=== PATIENT | male | born 1980 | race African-American/Black ===

== ENCOUNTER 2024-04-19 12:22 | Outpatient (REF) | payer OTHER, SELFPAY ==
--- NOTE | ~2024-04-19 | XR_ITS ---
EXAMINATION: Bilateral knee series CLINICAL INFORMATION: Pain in the left knee COMPARISON: None. TECHNIQUE: AP upright view of both knees. Additional lateral and patella view of the right knee FINDINGS: Right knee: There is soft tissue prominence along the region of the patella tendon. There is also a tiny ossification or calcification 11 mm distal to the distal pole the patella. Quadriceps unremarkable. Soft tissue prominence along the anterior aspect of the patella No joint space narrowing or arthrosis. No effusion. Limited left knee AP upright: The medial and lateral compartments are normal surrounding bone and soft tissues normal. XR/XR knee LT 1V IMPRESSION: 1. Soft tissue prominence in the region of the patella tendon. This is nonspecific but could reflect patellar tendon tear with small avulsion fracture. No definite patellar retraction Electronically signed by: Matt Good MD 04/24/2024 08:47 AM EDT
--- NOTE | ~2024-04-19 | XR_ITS ---
EXAMINATION: Bilateral knee series CLINICAL INFORMATION: Pain in the left knee COMPARISON: None. TECHNIQUE: AP upright view of both knees. Additional lateral and patella view of the right knee FINDINGS: Right knee: There is soft tissue prominence along the region of the patella tendon. There is also a tiny ossification or calcification 11 mm distal to the distal pole the patella. Quadriceps unremarkable. Soft tissue prominence along the anterior aspect of the patella No joint space narrowing or arthrosis. No effusion. Limited left knee AP upright: The medial and lateral compartments are normal surrounding bone and soft tissues normal. XR/XR knee RT 3V IMPRESSION: 1. Soft tissue prominence in the region of the patella tendon. This is nonspecific but could reflect patellar tendon tear with small avulsion fracture. No definite patellar retraction Electronically signed by: Matt Good MD 04/24/2024 08:47 AM EDT
== END 2024-04-19 12:23 | disposition home or self-care (01) ==
LOC: HO.HOSX 12:22
PROVIDERS: Visit Provider Physician Assistant
DX: S86.811A Strain of other muscle(s) and tendon(s) at lower leg level, right leg, initial encounter (principal); M17.11 Unilateral primary osteoarthritis, right knee; M25.562 Pain in left knee
CPT/HCPCS: 73560; 73562; 99202

== ENCOUNTER 2024-04-19 12:51 | Outpatient (AMB) | payer OTHER, SELFPAY ==
--- NOTE | 2024-04-19 13:24 | MHC.OFFVIS ---
Vital Signs 04/19/24 13:26 Height 5 ft 11 in Weight 172 lb BMI 24.0 Intake Visit Reasons: FC-Right Knee avulsion-DOI 03/31/24 Intake Note: Jakub is a 44 year old male who presents to the office today for a Right Knee avulsion, DOI 03/31/24. Patient reports he was seen at [facility] and was given a knee immobilizer and crutches to stay off of his leg. 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 His pain comes with bending of knee and feels a tight. He has had improvement in swelling. He uses icing and ibuprofen to help with his swelling. Occasional numbness and tingling. No previous tx. Hx of cortisone injection in bilateral knee years ago. Allergies No Known Allergies Allergy (Verified 04/19/24 13:33) Medication List - Last Reconciled 04/19/24 by Mala Lynn PA-C carbamazepine 200 mg PO BID HPI HPI FC-Right Knee avulsion-DOI 03/31/24: Details: 44-year-old male who presents to the office today for an evaluation of right knee injury, 03/31/24. 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 He currently states he has improvement in swelling however he reports tightness and pain in his knee that is aggravated with bending. He also experiences occasional numbness and tingling in her knee. He finds swelling relief with icing and ibuprofen. He has not had any treatment in the past. He had cortisone injection in bilateral knees years ago. [facility] Surgical History (Updated 04/19/24 @ 13:28 by KIANNA Coronado) Hx of Achilles tendon repair Hx of foot surgery Social History (Updated 04/19/24 @ 13:29 by KIANNA Coronado) Patient Tobacco Use Status: Never used Tobacco Substance Use Type: Marijuana Review of Systems Const All systems reviewed & are unremarkable except as noted in HPI and below Physical Exam Vital Signs: BMI result Body Mass Index 24.0 Const General: cooperative, healthy appearing, comfortable, no acute distress, well developed and alert Orientation/consciousness: patient oriented x3 HEENT Head: Yes normal to inspection, Yes normocephalic and Yes atraumatic Eyes General: appearance normal, both eyes and all related structures Resp Effort & Inspection: normal respiratory effort and able to speak in complete sentences Cardio Rate: regular rate Peripheral pulses: Peripheral pulses 2+ throughout GI Palpation (GI): Soft to palpation Skin Lesions: no lesions Rashes: no rashes Neuro General: patient oriented x3 Extrem Other: Right knee: Skin intact, He does have a moderate joint effusion with defect along the inferior pole of the patella with inability to SLR. Results Reviewed Results Reviewed: Xrays were obtained in the office today and personally reviewed by me of the right knee show patella jay resembling patellar tendon rupture Assessment & Plan Assessment & Plan (1) Rupture of right patellar tendon: Code(s): S86.811A - Strain of other muscle(s) and tendon(s) at lower leg level, right leg, initial encounter Category: Medical Plan I explained the extent of the injury and options to the patient which includes repair of the patellar tendon. I did explain to him that this takes anywhere from 6-12 weeks to fully recover from as there needs to be a period of immobilization and then potential physical therapy. It is ideal to perform surgery within the next few days as the injury is already a week out and we want to prevent further retraction or scarring which could jeopardize the success of the surgery. I discussed with him the risks, benefits and alternatives to the procedure.? Risks including, but not limited to infection, re-rupture of the tendon, stiffness, chronic pain.? He does understand all this and would like to proceed forward. I did also discuss the subacute nature of this injury and that repair outside the 1st 7-10 days can be difficult and may compromise results. He understands. Patient was fit for a knee brace in the office today. Orders: Orders XR knee RT 3V 04/19/24 M17.11 - Unilateral primary osteoarthritis, right knee XR knee LT 1V 04/19/24 M25.562 - Pain in left knee Medications: New acetaminophen 650 mg (2 x 325 mg) PO Q4-6H PRN 240 tabs 0RF fever or pain 30 days oxycodone Partial Fill upon patient request. 5 mg PO Q4H PRN 42 tabs 0RF pain 7 days Patient Instructions: Scribed for Mala Lynn PA-C, by Lonnie Estrada center medical and lab director, on 04/19/2024 at 1:15 PM EST.? I, Mala Lynn PA-C, have personally reviewed and agree with the information entered by the scribe. Coding Level of Care Code New Pt Level 4 (99992) Complex EM visit Add On G2211 Diagnoses Rupture of right patellar tendon S86.811A
[2024-04-19 13:26] VITALS: BMI 24.0
== END 2024-04-19 14:32 | disposition home or self-care (01) ==
PROVIDERS: Visit Provider Physician Assistant
DX: S86.811A Strain of other muscle(s) and tendon(s) at lower leg level, right leg, initial encounter (principal)
CPT/HCPCS: 99204; G2211

== ENCOUNTER 2024-04-20 09:48 | Day surgery (SDC) | payer OTHER, SELFPAY ==
[2024-04-20 10:06] VITALS: BMI 24.0
[2024-04-20 10:24] VITALS: BP 126/72; PULSE 64; RESP 18; TEMP 36.7; O2SAT 100
[2024-04-20] MEDS: Lactated Ringers 1,000 ML 100 ML IVCONT (10:27)
--- NOTE | 2024-04-20 10:34 | HO.ANESPROP2 ---
HPI - Anesthesia Eval Consult details Narrative: right patellar tendon repair PMFSH Active Problems Active Problems: All Active Problems Rupture of right patellar tendon (Acute) Family History Family history of problems with anesthesia: No Surgical History Surgical History Hx of Achilles tendon repair Hx of foot surgery History of Problems with Anesthesia: No Social History Social History Patient Tobacco Use Status: Never used Tobacco Second Hand Smoke Exposure: No Use of substances other than those prescribed or required for medical reasons: Yes Substance Use Type: Marijuana Are you DNR?: No Advance Directives: No Advance Directives Information Provided: Yes Advance Directives on File: No Meds Allergies Allergy/AdvReac Type Severity Reaction Status Date / Time No Known Allergies Allergy Verified 04/19/24 13:33 Active Medications: Current Medications Lactated Ringer's (Lr) 1,000 mls @ 100 mls/hr IVCONT .Q10H DANAE Last Admin: 04/20/24 10:27 Dose: 100 mls/hr Home Medications ?Medication ?Instructions ?Recorded ?Confirmed ?Last Taken ?Type carbamazepine 200 mg tablet 200 mg PO BID 04/19/24 04/20/24 04/20/24 History Exam Height,Weight and Vital Signs: Height 5 ft 11 in Weight 78.018 kg Last Vital Signs Temp 98.1 F 04/20/24 10:24 Pulse 64 04/20/24 10:24 Resp 18 04/20/24 10:24 BP 126/72 04/20/24 10:24 Pulse Ox 100 04/20/24 10:24 O2 Del Method Room Air 04/20/24 10:24 Airway Mallampati Class: II TM Dist: >3cm Neck ROM: Full Heart: rrr Assessment and Plan Assessment Anesthesia Assessment: Anesthesia Plan Discussed and Smoking Cess. Discussed (augie) Final Anesthetic Review Family History of Problems with Anesthesia: No History of Problems with Anesthesia: No NPO: Yes ASA Class: II Final Preanesthetic Review: No Changes in Pt Med Stat, Meds/Allgs Chart Reviewed, Consent Obtained/Reviewed and Anes Risks/Benef Reviewed Patient Risk: Intermediate Procedure Risk: Low Anesthetic Plan Anesthetic Plan: GA and Regional Block Disposition: Standard PACU
--- NOTE | 2024-04-20 11:12 | MHC.SHP ---
Pre-Procedural Eval Section A - 24 Hr Update-Section A only Date of Service: 04/20/24 The patient is an INPATIENT: No Changes since office visit: No Cold of Flu in the past 2 weeks, No New Medical Problems, No Changes in Medication and No Patient answered all questions The patient has been examined within 24 hours of the surgical procedure. The History & Physical has been completed within 30 days and I have reviewed it.: Yes Section B - Complete if H&P > 30 days Chief Complaint: Strain of other muscle(s) and tendon(s) at lower Allergies: Allergies Allergy/AdvReac Type Severity Reaction Status Date / Time No Known Allergies Allergy Verified 04/19/24 13:33 Plan I have reviewed the history and physical and performed a pertinent physical examination on my patient. No changes have occurred unless specified. Time Spent With Patient Time: Total time managing care of this patient today ____ minutes.
--- NOTE | 2024-04-20 13:59 | PM.OP ---
Brief Operative Note Date of Service: 04/20/24 Pre-op diagnosis: Right Patellar Tendon Rupture Post-op diagnosis: same Procedure: Right Patellar Tendon repair Implants: Syed and Nephew double loaded Helacoil and large Regeneted Collagen bioinductive implant Surgeon: Chris Vila MD Anesthesia: GETA and regional Was an Graphic Pre Press Trades Worker used for this Procedure?: Yes Graphic Pre Press Trades Worker: Mala Lynn Estimated blood loss (mL): 20 Tourniquet time (min): 40 IV fluids (mL): 1,000 Pathology: none sent Condition: stable Disposition: PACU
[2024-04-20 14:10] VITALS: BP 136/80; PULSE 73; RESP 18; TEMP 36.5; O2SAT 100
[2024-04-20 14:15] VITALS: BP 124/72; PULSE 59; RESP 18; O2SAT 100
[2024-04-20 14:20] VITALS: BP 133/83; PULSE 68; RESP 18; O2SAT 100
[2024-04-20 14:30] VITALS: BP 127/84; PULSE 62; RESP 16; O2SAT 100
[2024-04-20 14:45] VITALS: BP 132/75; PULSE 66; RESP 18; O2SAT 100
--- NOTE | 2024-04-30 16:04 | P.OP_ITS ---
Operative Note Operative Note Date of Service: 04/20/24 Narrative: Date of Service: 04/20/24 Pre-op diagnosis: Right Patellar Tendon Rupture Post-op diagnosis: same Procedure: Right Patellar Tendon repair Implants: Syed and Nephew double loaded Helacoil and large Regeneted Collagen b ioinductive implant Surgeon: Chris Vial MD Anesthesia: GETA and regional Was an Material Expeditor used for this Procedure?: Yes Material Expeditor: Mala Lynn Estimated blood loss (mL): 20 Tourniquet time (min): 40 IV fluids (mL): 1,000 Pathology: none sent Condition: stable Disposition: PACU Patient was brought to the operating room and placed supine on the surgical table. He was prepped and draped in standard sterile fashion and a time out was called to identify proper site, proper procedure and IV antibiotics per weight were administered. I began by making an incision between the middle of the pat jodi and the tibial tubercle. Dissection was taken down to the patellar tendon and the patellar retinaculum. There was fibrous early scar tissue and this was dissected down bluntly. Immediately evident was a large full-thickness tear of the patellar tendon. The tear extended from the medial aspect of the retinaculum and extended through the patellar tendon to the lateral retinaculum. I cleared the debris from the injury site and the old hematoma and examined the injury. This was a full-thickness tear of the patellar tendon that was partially avulsed off bone and partially torn at the proximal aspect of the tendon. I debrided any nonviable tissue and then I placed to double loaded Syed and Nephew 4.75 suture anchors into the patella. Care was taken to avoid penetrating the articular surface. I then used a free needle to stitch the patellar tendon using a locking Krackow stitch distally and then back up proximally. These were then tied to 1 another in a hyperextension after I had debrided down the distal nonarticular portion of the patella to allow for of bleeding bed to reattached the tendon to. Once this was done I oversewed some of the loose fibers of the tendon as it was a portion of tendon on tendon injury and I was not entirely an avulsion injury. This was oversewn with a 2-0 FiberWire. I then took the knee through range of motion I was able to range it from 0-125 degrees without difficulty. I then used 2 FiberWire to repair the retinaculum laterally and medial. Prior to this I irrigated copiously. Because the injury was so extensive and it was several weeks out I elected to place a Regeneten bio inductive implant over the central zone of tendon injury. This was kept in place with a Vicryl suture. Once this was done I closed the skin with absorbable suture and remedios. Patient was placed into a sterile dressing and a hinged knee brace locked in extension. He was extubated and brought to recovery room in stable condition. There were no known complications.
== END 2024-04-20 15:08 | disposition home or self-care (01) ==
PROVIDERS: PCP Internal Medicine; Visit Provider Orthopaedic Surgery
PROC: (CPT 27380; principal; 2024-04-20 13:20)
DX: S86.811A Strain of other muscle(s) and tendon(s) at lower leg level, right leg, initial encounter (principal); M17.11 Unilateral primary osteoarthritis, right knee; M25.562 Pain in left knee; W50.1XXA Accidental kick by another person, initial encounter; Y93.67 Activity, basketball; Y92.39 Other specified sports and athletic area as the place of occurrence of the external cause; Y99.8 Other external cause status; Z98.890 Other specified postprocedural states
CPT/HCPCS: 27380; C1713; C1763; J0665; J0690; J1100; J2003; J2250; J2704; J2795; J3010

== ENCOUNTER → 2024-04-20 09:48 | Outpatient (BNV) | payer OTHER, SELFPAY | PROVIDERS: PCP Internal Medicine; Visit Provider Orthopaedic Surgery | DX: S86.811A Strain of other muscle(s) and tendon(s) at lower leg level, right leg, initial encounter (principal) | CPT/HCPCS: 27380 ==

== ENCOUNTER 2024-04-29 14:13 | Outpatient (AMB) | payer OTHER, SELFPAY ==
--- NOTE | 2024-04-29 14:47 | MHC.OFFVIS ---
Intake Visit Reasons: PO RT patellar tendon repair 04/20/24 NE Allergies No Known Allergies Allergy (Verified 04/19/24 13:33) HPI HPI PO RT patellar tendon repair 04/20/24 NE: Details: 44-year-old male who returns to the office today for post-op right patellar tendon repair, 04/20/[address] Vila. He states he has improvement in his pain and swelling and is doing well overall. He takes oxycodone for his pain with benefits. He has no other concerns today. PFSH Surgical History Hx of Achilles tendon repair Hx of foot surgery Social History Patient Tobacco Use Status: Never used Tobacco Second Hand Smoke Exposure: No Substance Use Type: Marijuana Review of Systems Const All systems reviewed & are unremarkable except as noted in HPI and below Physical Exam Extrem Other: Right knee: Incision clean, dry and intact. No erythema, mild swelling. Sensation intact. Assessment & Plan Assessment & Plan (1) Rupture of right patellar tendon: Code(s): S86.811A - Strain of other muscle(s) and tendon(s) at lower leg level, right leg, initial encounter Category: Medical Plan Jason will remain intact for additional week. He will use the brace locked in extension. No bending. I encouraged him to work on extension by putting rolled up towel underneath her heel. We discussed pain management options. He will continue taking oxycodone every 4-6 hours along with Tylenol and I will prescribe him Celebrex as well. He will return in 1 week for staple removal and initiate physical therapy, sooner if needed. Medications: New celecoxib (Celebrex) 200 mg PO BID 60 caps 3RF 30 days Refilled oxycodone Partial Fill upon patient request. 5 mg PO Q4H PRN 42 tabs 0RF pain 7 days Patient Instructions: Scribed for Mala Lynn PA-C, by Lonnie Estrada bio medical technician, on 04/29/2024 at 2:30 PM EST.? I, Mala Lynn PA-C, have personally reviewed and agree with the information entered by the scribe. Coding Level of Care Code Global (27138) Diagnoses Rupture of right patellar tendon S86.811A
== END 2024-04-29 14:32 | disposition home or self-care (01) ==
LOC: HO.HOS 14:13
PROVIDERS: Visit Provider Physician Assistant
DX: S86.811A Strain of other muscle(s) and tendon(s) at lower leg level, right leg, initial encounter (principal)
CPT/HCPCS: 99024

== ENCOUNTER → 2024-04-29 14:13 | Outpatient (BNVA) | payer OTHER, SELFPAY | PROVIDERS: Visit Provider Physician Assistant | DX: S86.811D Strain of other muscle(s) and tendon(s) at lower leg level, right leg, subsequent encounter (principal) | CPT/HCPCS: 99212 ==

== ENCOUNTER 2024-05-05 12:50 | Outpatient (AMB) | payer OTHER, SELFPAY ==
--- NOTE | 2024-05-05 13:06 | MHC.OFFVIS ---
Intake Visit Reasons: PO RT patellar tendon repair 04/20/24 NE Intake Note: Jakub a 44 year old male who presents today for a post operative visit s/p right patellar tendon repair, DOS 04/20/24. Patient reports intermittent throbbing pain. His current pain level is a 4 out of 10. He discontinues celebrex and oxycodone as these medications was causing fevers. Allergies No Known Allergies Allergy (Verified 05/05/24 13:24) Medication List - Last Reconciled 05/05/24 by Mala Lynn PA-C carbamazepine 200 mg PO BID HPI HPI PO RT patellar tendon repair 04/20/24 NE: Details: 44-year-old male who returns to the office today for post-op right patellar tendon repair, 04/20/[address] Vila. He continues to have intermittent throbbing pain in his knee and rates the pain as 4 on the scale of 0-10. He has discontinued taking Celebrex and oxycodone as these medications were causing him fever. He is doing well otherwise and has no concerns today. [facility] Surgical History Hx of Achilles tendon repair Hx of foot surgery Social History Patient Tobacco Use Status: Never used Tobacco Second Hand Smoke Exposure: No Substance Use Type: Marijuana Review of Systems Const All systems reviewed & are unremarkable except as noted in HPI and below Physical Exam Extrem Other: Right knee: Incision clean, dry and intact. No redness or drainage. Mild joint effusion. He has full extension. Full sensation throughout. Pulses are present. Assessment & Plan Assessment & Plan (1) Rupture of right patellar tendon: Code(s): S86.811A - Strain of other muscle(s) and tendon(s) at lower leg level, right leg, initial encounter Category: Medical Plan [place] removed today, steri strips applied. He will begin a course of physical therapy. He should wear the brace at all times with ambulation and sleeping. He can weight bear as tolerated with the crutches with the brace locked in extension, ROM to 0-10 degrees. He should increase 10 degrees every week with physical therapy. He will focus on quad exercises and he will see back in 4 weeks sooner if needed. Orders: Orders PT Evaluation and Treatment Today S86.811A - Strain of other muscle(s) and tendon(s) at lower leg level, right leg, initial encounter Patient Instructions: Scribed for Mala Lynn PA-C, by Lonnie Estrada medical education manager, on 05/05/2024 at 1:15 PM EST.? I, Mala Lynn PA-C, have personally reviewed and agree with the information entered by the scribe. Coding Level of Care Code Global (50007) Diagnoses Rupture of right patellar tendon S86.811A
== END 2024-05-05 14:07 | disposition home or self-care (01) ==
LOC: HO.HOS 12:51
PROVIDERS: Visit Provider Physician Assistant
DX: S86.811A Strain of other muscle(s) and tendon(s) at lower leg level, right leg, initial encounter (principal)
CPT/HCPCS: 99024

== ENCOUNTER → 2024-05-05 12:50 | Outpatient (BNVA) | payer OTHER, SELFPAY | PROVIDERS: Visit Provider Physician Assistant | DX: S86.811D Strain of other muscle(s) and tendon(s) at lower leg level, right leg, subsequent encounter (principal); X58.XXXD Exposure to other specified factors, subsequent encounter; Z98.890 Other specified postprocedural states | CPT/HCPCS: 99212 ==

== ENCOUNTER 2024-06-04 09:13 | Outpatient (AMB) | payer OTHER, SELFPAY ==
--- NOTE | 2024-06-04 09:22 | MHC.OFFVIS ---
Vital Signs 06/04/24 09:33 Height 5 ft 11 in Weight 163 lb 2 oz BMI 22.7 Intake Visit Reasons: PO RT patellar tendon repair 04/20/24 NE Intake Note: Jakub a 44 year old male who presents today for a post operative visit s/p right patellar tendon repair, DOS 04/20/24. Patient states he is doing well and has been attending P.T 2x a week with improvement in ROM. He is experiencing a radiating shocking sensation in his medial aspect of knee and numbness on his lateral side especially at night time. Allergies No Known Allergies Allergy (Verified 06/04/24 09:24) Medication List - Last Reconciled 06/04/24 by Mala Lynn PA-C carbamazepine 200 mg PO BID HPI HPI PO RT patellar tendon repair 04/20/24 NE: Details: 44-year-old male who returns to the office today for post-op right patellar tendon repair, 04/20/[address] Vila. He states he has improvement however he does experience a radiating shocking sensation at the medial aspect of his knee as well as numbness at the lateral aspect especially at night time. He also experiences weakness in his knee. He has been attending physical therapy with benefits and wearing his brace for ambulation. He has significant quad weakness and stiffness with ROM. [facility] Surgical History Hx of Achilles tendon repair Hx of foot surgery Social History (Updated 06/04/24 @ 09:32 by MAX Cardozo) Patient Tobacco Use Status: Never used Tobacco Second Hand Smoke Exposure: No Substance Use Type: Marijuana Current occupational status: unemployed Review of Systems Const All systems reviewed & are unremarkable except as noted in HPI and below Physical Exam Vital Signs: BMI result Body Mass Index 22.7 Extrem Other: Right knee:Incision well healed. No effusion. He has almost full extension. He has poor quad activation. No quad defect. We are able to flex the right hip to 90 with significant guarding and use of accessory muscles. He has approx 40-45deg knee flexion. NVI. Assessment & Plan Assessment & Plan (1) Rupture of right patellar tendon: Code(s): S86.811A - Strain of other muscle(s) and tendon(s) at lower leg level, right leg, initial encounter Category: Medical Qualifiers: Encounter type: subsequent encounter Qualified Code(s): S86.811D - Strain of other muscle(s) and tendon(s) at lower leg level, right leg, subsequent encounter Plan Dr. Vila was available to see the patient with me today. We worked extensively on trying to activate his quad tendon and also push the motion of his knee. We did demonstrate some exercises in the office today and encouraged he works on this at home along with the formal therapy exercises. He will continue with the brace locked in extension while ambulating and remove it at all other times. I would like to see him back in [address] Vila, sooner if needed. Patient Instructions: Scribed for Mala Lynn PA-C, by Lonnie Estrada medical center director, on 06/04/2024 at 9:15 AM EST.? I, Mala Lynn PA-C, have personally reviewed and agree with the information entered by the scribe. Coding Level of Care Code Global (58169) Diagnoses Rupture of right patellar tendon, subsequent encounter S86.811D Encounter type: subsequent encounter
[2024-06-04 09:33] VITALS: BMI 22.7
--- OUTSIDE RECORDS SUMMARY | 2024-06-09 06:51 | XMS_ITS | Data Portability ---
Author Organization [facility], Main Office Address [address] [facility] [address] [place] [address] Care Team Providers Care Leather Splitter Name Role Phone HUMPHREY EASTON Primary Care Provider SAMIA JOSHI Referring Provider JESSA CLARKE Referring Provider CASSANDRA SCHNEIDER Referring Provider Assessment Encounter Date Assessment Date Assessment LastModified by Organization Details LastModified Time 06/13/2022 06/13/2022 This service was provided using telemedicine. Patient consented to video & audio visit Patient was located in the [facility]. Provider was located in the office. No other persons participated in the telemedicine visit except for the patient unless otherwise indicated here. {{}} Total time of visit was 20 minutes. [email or web address] Not available 06/19/2022 09:28:23 05/06/2024 05/06/2024 This service was provided using telemedicine. Patient consented to video & audio visit Patient was located in the [facility]. Provider was located in the office. No other persons participated in the telemedicine visit except for the patient unless otherwise indicated here. {{}} Total time of visit was 17 minutes. [email or web address] Not available 05/08/2024 09:02:38 Plan of Treatment Reminders Order Date Submit Date Provider Last Modified By Organization Details Last Modified Time Details Appointments None recorded . Lab carbamaz epine, serum or plasma 2022 023 MICAELA [facility], [address] [facility], [facility], [place], [address], 3 16:20:20 lipid panel, serum 2022 023 MICAELA [facility], [address], [address], [place], [address], 3 16:20:22 CMP, serum or plasma 2022 023 MICAELA [facility], [address], [address], [place], [address], 3 16:20:21 CMP, serum or plasma 2023 024 MICAELA [facility], [address], [facility] [address], [place], [address], 4 06:08:08 CBC w/ auto diff 2023 024 MICAELA [facility], [address], [facility] [address], [place], [address], 4 06:08:06 lipid panel, serum 2023 024 MICAELA [facility], [address], [facility] [address], [place], [address], 4 06:08:09 urinalys is, complete 2023 024 MICAELA [facility], [address], [facility] [address], [place], [address], 4 06:08:08 Referral None recorded . Procedures screenin g test of visual acuity, quantita tive, bilatera l (PROC) 2023 024 [email or web address] In-Office Order, Internal Use Only DO Not Attach Compendium DO Not Attach Compendium, Do Not Delete/merge, [id number] 12:49:02 Surgeries None recorded . Imaging exercise stress test - Intermit tent chest wall pain and an episode of syncope. R/o ischemia . [address] [facility], [address] [place] [address] Drive, [address], [place], [address], 3 09:27:17 electroc ardiogra m 2023 024 [email or web address] In-Office Order, Internal Use Only DO Not Attach Compendium DO Not Attach Compendium, Do Not Delete/merge, [id number] 12:31:01 audiogra m 2023 024 [email or web address] In-Office Order, Internal Use Only DO Not Attach Compendium DO Not Attach Compendium, Do Not Delete/merge, [id number] 12:48:56 Medication Orders None recorded . Patient TargetsNo targets recorded. Patient Instructions Encounter Date Encounter Id Patient Instructions Last Modified By Organization Details Last Modified Time 11/21/2021 [id number] epilepsy: care instructions [email or web address] Not available 11/21/2021 17:19:24 06/13/2022 [id number] fainting: care instructions [email or web address] Not available 06/19/2022 17:46:04 lightheadedness or faintness: care instructions [email or web address] Not available 06/19/2022 17:46:04 11/26/2022 [id number] epilepsy: care instructions [email or web address] Not available 11/26/2022 13:08:52 03/02/2024 [id number] epilepsy: care instructions [email or web address] Not available 03/02/2024 13:45:21 vision screen* [email or web address] Not available 0 03/09/2024 10:12:58 hearing screening* Not availab le 03/09/2024 10:12:58 Reason for Referral None Reported. Results Created Date Observation Date Name Description Value Unit Range Abnormal Flag Note LastModifiedBy Organization Detail LastModifiedTime 11/08/19 22 11/07/2021 CARBA MAZEP INE carbamazepin e 5.8 mg/L (4-10) AMITR IPTYL INE, NORTR IPTYL INE, PHENO THIAZ MANDIE, CARBA MAZEP INE 10,11 EPOXI DE, IMIPR AMINE , DIAZE MADAI, PROBE NECID AND METHS UXIMI DE MAY CAUSE FALSE LY DECRE ASED RESUL TS OXCAR BAZEP INE AND METAB OLITE MAY CAUSE FALSE LY DECRE ASED RESUL TS Not Available [facility] [address] [place], [address], 11/07/2021 16:18:48 11/08/19 22 11/07/2021 COMPR EHENS BRENDA METAB OLIC PANL glucose 74 mg/dL (70-99 ) Not Available [facility] [address], [address], 11/07/2021 16:18:49 11/08/19 22 11/07/2021 COMPR EHENS BRENDA METAB OLIC PANL BUN 21 mg/dL (6-20) high Not Available [facility] [address] [place], [address], 11/07/2021 16:18:49 11/08/19 22 11/07/2021 COMPR EHENS BRENDA METAB OLIC PANL creatinine 1.4 mg/dL (0.7-1 .2) high Not Available [facility] [address] [place], [address], 11/07/2021 16:18:49 11/08/19 22 11/07/2021 COMPR EHENS BRENDA METAB OLIC PANL sodium 138 mmol/ L (133-1 45) Not Available [facility] [address] [place], [address], 11/07/2021 16:18:49 11/08/19 22 11/07/2021 COMPR EHENS BRENDA METAB OLIC PANL potassium 4.7 mmol/ L (3.6-5 .2) Not Available [facility] [address] [place], [address], 11/07/2021 16:18:49 11/08/19 22 11/07/2021 COMPR EHENS BRENDA METAB OLIC PANL chloride 102 mmol/ L (98-10 7) Not Available [facility] [address] [place], [address], 11/07/2021 16:18:49 11/08/19 22 11/07/2021 COMPR EHENS BRENDA METAB OLIC PANL bicarbonate 27 mmol/ L (22-29 ) Not Available [facility] [address] [place], [address], 11/07/2021 16:18:49 11/08/19 22 11/07/2021 COMPR EHENS BRENDA METAB OLIC PANL anion gap 9 (4-17) Not Available [facility] [address] [place], [address], 11/07/2021 16:18:49 11/08/19 22 11/07/2021 COMPR EHENS BRENDA METAB OLIC PANL albumin 4.5 gm/dL (3.4-4 .8) Not Available [facility] [address] [place], [address], 11/07/2021 16:18:49 11/08/19 22 11/07/2021 COMPR EHENS BRENDA METAB OLIC PANL calcium 9.5 mg/dL (8.6-1 0.5) Not Available [facility] [address] [place], [address], 11/07/2021 16:18:49 11/08/19 22 11/07/2021 COMPR EHENS BRENDA METAB OLIC PANL bilirubin,to riri 0.3 mg/dL (0-1.2 ) Not Available [facility] [address] [place], [address], 11/07/2021 16:18:49 11/08/19 22 11/07/2021 COMPR EHENS BRENDA METAB OLIC PANL total protein 6.9 gm/dL (6.2-8 .2) Not Available [facility] [address] [place], [address], 11/07/2021 16:18:49 11/08/19 22 11/07/2021 COMPR EHENS BRENDA METAB OLIC PANL Ag ratio 1.9 Not Available [facility] [address] [place], [address], 11/07/2021 16:18:49 11/08/19 22 11/07/2021 COMPR EHENS BRENDA METAB OLIC PANL AST 22 U/L (0-40) Not Available [facility] [address] [place], [address], 11/07/2021 16:18:49 11/08/19 22 11/07/2021 COMPR EHENS BRENDA METAB OLIC PANL alk phos 68 U/L (40-12 9) Not Available [facility] [address] [place], [address], 11/07/2021 16:18:49 11/08/19 22 11/07/2021 COMPR EHENS BRENDA METAB OLIC PANL ALT 22 U/L (0-41) Not Available [facility] [address] [place], [address], 11/07/2021 16:18:49 11/08/19 22 11/07/2021 COMPR EHENS BRENDA METAB OLIC PANL estimated GFR creatinine 66 mL/mi n/1.7 3_M2 Creat inine based estim ated glome rular filtr ation (eGFR ) in adult s is calcu lated using the Natio nal Kidne y Found ation recom radha d 2020 CKD-E PI equat ion. Estim ates GFR from serum creat inine , age and sex. Not Available [facility] [address] [place], [address], 11/07/2021 16:18:49 11/08/19 22 11/07/2021 COMPL ETE BLOOD COUNT WBC 6.0 K/mm3 (4.0-1 1.0) Not Available [facility] [address] [place], [address], 11/07/2021 16:21:49 11/08/19 22 11/07/2021 COMPL ETE BLOOD COUNT RBC 4.56 M/mm3 (4.70- 6.10) low Not Available [facility] [address] [place], [address], 11/07/2021 16:21:49 11/08/19 22 11/07/2021 COMPL ETE BLOOD COUNT HGB 13.7 gm/dL (13.7- 17.1) Not Available [facility] [address] [place], [address], 11/07/2021 16:21:49 11/08/19 22 11/07/2021 COMPL ETE BLOOD COUNT HCT 43.2 % (40.5- 50.0) Not Available [facility] [address] [place], [address], 11/07/2021 16:21:49 11/08/19 22 11/07/2021 COMPL ETE BLOOD COUNT MCV 94.7 fL (80.0- 94.0) high Not Available [facility] [address], [address], 11/07/2021 16:21:49 11/08/19 22 11/07/2021 COMPL ETE BLOOD COUNT MCH 30.0 pg (27.0- 34.0) Not Available [facility] [address], [address], 11/07/2021 16:21:49 11/08/19 22 11/07/2021 COMPL ETE BLOOD COUNT MCHC 31.7 g/dL (33.0- 37.0) low Not Available [facility] [address], [address], 11/07/2021 16:21:49 11/08/19 22 11/07/2021 COMPL ETE BLOOD COUNT plt 253 K/mm3 (150-4 60) Not Available [facility] [address] [place], [address], 11/07/2021 16:21:49 11/08/19 22 11/07/2021 COMPL ETE BLOOD COUNT RDW-SD 42.5 fL (<47.0 ) Not Available [facility] [address] [place], [address], 11/07/2021 16:21:49 11/08/19 22 11/07/2021 COMPL ETE BLOOD COUNT MPV 9.7 fL (9.4-1 2.4) Not Available [facility] [address] [place], [address], 11/07/2021 16:21:49 11/08/19 22 11/07/2021 COMPL ETE BLOOD COUNT automated NRBC 0.0 #/100 _WBC' s Not Available [facility] [address] [place], [address], 11/07/2021 16:21:49 11/08/19 22 11/07/2021 COMPL ETE BLOOD COUNT abs. NRBC 0.0 K/mm3 Not Available [facility] [address] [place], [address], 11/07/2021 16:21:49 12/21/19 23 12/20/2022 CARBA MAZEP INE carbamazepin e 5.0 mg/L (4-10) AMITR IPTYL INE, NORTR IPTYL INE, PHENO THIAZ MANDIE, CARBA MAZEP INE 10,11 EPOXI DE, IMIPR AMINE , DIAZE MADAI, PROBE NECID AND METHS UXIMI DE MAY CAUSE FALSE LY DECRE ASED RESUL TS OXCAR BAZEP INE AND METAB OLITE MAY CAUSE FALSE LY DECRE ASED RESUL TS Not Available [facility] [address] [place], [address], 12/20/2022 16:20:20 12/21/19 23 12/20/2022 COMPR EHENS BRENDA METAB OLIC PANL glucose 96 mg/dL (70-99 ) Not Available [facility] [address] [place], [address], 12/20/2022 16:20:21 12/21/19 23 12/20/2022 COMPR EHENS BRENDA METAB OLIC PANL BUN 15 mg/dL (6-20) Not Available [facility] [address] [place], [address], 12/20/2022 16:20:21 12/21/19 23 12/20/2022 COMPR EHENS BRENDA METAB OLIC PANL creatinine 1.4 mg/dL (0.7-1 .2) high Not Available [facility] [address] [place], [address], 12/20/2022 16:20:21 12/21/19 23 12/20/2022 COMPR EHENS BRENDA METAB OLIC PANL sodium 138 mmol/ L (133-1 45) Not Available [facility] [address], [address], 12/20/2022 16:20:21 12/21/19 23 12/20/2022 COMPR EHENS BRENDA METAB OLIC PANL potassium 4.2 mmol/ L (3.6-5 .2) Not Available [facility] [address] [place], [address], 12/20/2022 16:20:21 12/21/19 23 12/20/2022 COMPR EHENS BRENDA METAB OLIC PANL chloride 101 mmol/ L (98-10 7) Not Available [facility] [address], [address], 12/20/2022 16:20:21 12/21/19 23 12/20/2022 COMPR EHENS BRENDA METAB OLIC PANL bicarbonate 27 mmol/ L (22-29 ) Not Available [facility] [address], [address], 12/20/2022 16:20:21 12/21/19 23 12/20/2022 COMPR EHENS BRENDA METAB OLIC PANL anion gap 10 (4-17) Not Available [facility] [address], [address], 12/20/2022 16:20:21 12/21/19 23 12/20/2022 COMPR EHENS BRENDA METAB OLIC PANL albumin 4.6 gm/dL (3.4-4 .8) Not Available [facility] [address] [place], [address], 12/20/2022 16:20:21 12/21/19 23 12/20/2022 COMPR EHENS BRENDA METAB OLIC PANL calcium 9.4 mg/dL (8.6-1 0.5) Not Available [facility] [address] [place], [address], 12/20/2022 16:20:21 12/21/19 23 12/20/2022 COMPR EHENS BRENDA METAB OLIC PANL bilirubin,to riri 0.3 mg/dL (0-1.2 ) Not Available [facility] [address] [place], [address], 12/20/2022 16:20:21 12/21/19 23 12/20/2022 COMPR EHENS BRENDA METAB OLIC PANL total protein 6.9 gm/dL (6.2-8 .2) Not Available [facility] [address] [place], [address], 12/20/2022 16:20:21 12/21/19 23 12/20/2022 COMPR EHENS BRENDA METAB OLIC PANL Ag ratio 2.0 Not Available [facility] [address] [place], [address], 12/20/2022 16:20:21 12/21/19 23 12/20/2022 COMPR EHENS BRENDA METAB OLIC PANL AST 57 U/L (0-40) high Not Available [facility] [address] [place], [address], 12/20/2022 16:20:21 12/21/19 23 12/20/2022 COMPR EHENS BRENDA METAB OLIC PANL alk phos 68 U/L (40-12 9) Not Available [facility] [address] [place], [address], 12/20/2022 16:20:21 12/21/19 23 12/20/2022 COMPR EHENS BRENDA METAB OLIC PANL ALT 32 U/L (0-41) Not Available [facility] [address] [place], [address], 12/20/2022 16:20:21 12/21/19 23 12/20/2022 COMPR EHENS BRENDA METAB OLIC PANL estimated GFR creatinine 65 mL/mi n/1.7 3_M2 Creat inine based estim ated glome rular filtr ation (eGFR ) in adult s is calcu lated using the Natio nal Kidne y Found ation recom radha d 2020 CKD-E PI equat ion. Estim ates GFR from serum creat inine , age and sex. Not Available [facility] [address] [place], [address], 12/20/2022 16:20:21 12/21/19 23 12/20/2022 LIPID PANEL cholesterol, total 236 mg/dL (<200) high Not Available [facility] [address] [place], [address], 12/20/2022 16:20:22 12/21/19 23 12/20/2022 LIPID PANEL triglyceride 70 mg/dL (<150) Not Available [facility] [address] [place], [address], 12/20/2022 16:20:22 12/21/19 23 12/20/2022 LIPID PANEL HDL chol 100 mg/dL (>39) Not Available [facility] [address] [place], [address], 12/20/2022 16:20:22 12/21/19 23 12/20/2022 LIPID PANEL LDL cholesterol, calculated 122 mg/dL (0-130 ) Not Available [facility] [address] [place], [address], 12/20/2022 16:20:22 12/21/19 23 12/20/2022 LIPID PANEL non HDL cholesterol (calc) 136 mg/dL (<160) Not Available [facility] [address] [place], [address], 12/20/2022 16:20:22 03/02/20 24 03/02/2024 scree fabio test of visua l acuit y, quant itati ve, bilat eral (PROC ) L EYE UNCORRECTED 20/30 Not Available In-O ffice Order Internal Use Only DO Not Attach Compendium DO Not Attach Compendium, Do Not Delete/merge, [id number] 03/02/2024 12:00:29 03/02/20 24 03/02/2024 scree fabio test of visua l acuit y, quant itati ve, bilat eral (PROC ) R EYE UNCORRECTED 20/40 Not Available In-O ffice Order Internal Use Only DO Not Attach Compendium DO Not Attach Compendium, Do Not Delete/merge, [id number] 03/02/2024 12:00:29 03/02/20 24 03/02/2024 scree fabio test of visua l acuit y, quant itati ve, bilat eral (PROC ) KAROL UNCORRECTED 20/25 Not Available In-O ffice Order Internal Use Only DO Not Attach Compendium DO Not Attach Compendium, Do Not Delete/merge, [id number] 03/02/2024 12:00:29 03/05/20 24 03/06/2024 CBC WITH DIFFE RENTI AL/PL ATELE T WBC 6.0 x10e3 /uL 3.4-10 .8 normal Not Available [facility] ([facility]) [address] [place], [address], 03/06/2024 06:08:06 03/05/20 24 03/06/2024 CBC WITH DIFFE RENTI AL/PL ATELE T RBC 4.95 x10e6 /uL 4.14-5 .80 normal Not Available [facility] ([facility]) [address] [facility], [place], [address], 03/06/2024 06:08:06 03/05/20 24 03/06/2024 CBC WITH DIFFE RENTI AL/PL ATELE T hemoglobin 14.7 g/dL 13.0-1 7.7 normal Not Available [facility] ([facility]) [address] [place], [address], 03/06/2024 06:08:06 03/05/20 24 03/06/2024 CBC WITH DIFFE RENTI AL/PL ATELE T hematocrit 44.6 % 37.5-5 1.0 normal Not Available [facility] ([facility]) [address] [facility], [place], [address], 03/06/2024 06:08:06 03/05/20 24 03/06/2024 CBC WITH DIFFE RENTI AL/PL ATELE T MCV 90 fL 79-97 normal Not Available [facility] ([facility]) [address] [facility], [place], [address], 03/06/2024 06:08:06 03/05/20 24 03/06/2024 CBC WITH DIFFE RENTI AL/PL ATELE T MCH 29.7 pg 26.6-3 3.0 normal Not Available [facility] ([facility]) [address] [place], [address], 03/06/2024 06:08:06 03/05/20 24 03/06/2024 CBC WITH DIFFE RENTI AL/PL ATELE T MCHC 33.0 g/dL 31.5-3 5.7 normal Not Available [facility] ([facility]) [address] [place], [address], 03/06/2024 06:08:06 03/05/20 24 03/06/2024 CBC WITH DIFFE RENTI AL/PL ATELE T RDW 12.6 % 11.6-1 5.4 Not Available [facility] ([facility]) [address] [place], [address], 03/06/2024 06:08:06 03/05/20 24 03/06/2024 CBC WITH DIFFE RENTI AL/PL ATELE T platelets 266 x10e3 /uL 150-45 0 normal Not Available [facility] ([facility]) [address] [facility], [place], [address], 03/06/2024 06:08:06 03/05/20 24 03/06/2024 CBC WITH DIFFE RENTI AL/PL ATELE T neutrophils 42 % not estab. normal Not Available [facility] ([facility]) [address] [facility], [place], [address], 03/06/2024 06:08:06 03/05/20 24 03/06/2024 CBC WITH DIFFE RENTI AL/PL ATELE T lymphs 49 % not estab. normal Not Available [facility] ([facility]) [address] [facility], [place], [address], 03/06/2024 06:08:06 03/05/20 24 03/06/2024 CBC WITH DIFFE RENTI AL/PL ATELE T monocytes 5 % not estab. normal Not Available [facility] ([facility]) [address] [facility], [place], [address], 03/06/2024 06:08:06 03/05/20 24 03/06/2024 CBC WITH DIFFE RENTI AL/PL ATELE T eos 3 % not estab. normal Not Available [facility] ([facility]) [address] [facility], [place], [address], 03/06/2024 06:08:06 03/05/20 24 03/06/2024 CBC WITH DIFFE RENTI AL/PL ATELE T basos 1 % not estab. normal Not Available [facility] ([facility]) [address] [facility], [place], [address], 03/06/2024 06:08:06 03/05/20 24 03/06/2024 CBC WITH DIFFE RENTI AL/PL ATELE T immature cells 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 Not Available [facility] ([facility]) [address] [facility], [place], [address], 03/06/2024 06:08:06 03/05/20 24 03/06/2024 CBC WITH DIFFE RENTI AL/PL ATELE T neutrophils (absolute) 2.5 x10e3 /uL 1.4-7. 0 normal Not Available [facility] ([facility]) [address] [facility], [place], [address], 03/06/2024 06:08:06 03/05/20 24 03/06/2024 CBC WITH DIFFE RENTI AL/PL ATELE T lymphs (absolute) 3.0 x10e3 /uL 0.7-3. 1 normal Not Available [facility] ([facility]) [address] [facility], [place], [address], 03/06/2024 06:08:06 03/05/20 24 03/06/2024 CBC WITH DIFFE RENTI AL/PL ATELE T monocytes(ab solute) 0.3 x10e3 /uL 0.1-0. 9 normal Not Available [facility] ([facility]) [address] [facility], [place], [address], 03/06/2024 06:08:06 03/05/20 24 03/06/2024 CBC WITH DIFFE RENTI AL/PL ATELE T eos (absolute) 0.2 x10e3 /uL 0.0-0. 4 normal Not Available [facility] ([facility]) [address] [facility], [place], [address], 03/06/2024 06:08:06 03/05/20 24 03/06/2024 CBC WITH DIFFE RENTI AL/PL ATELE T baso (absolute) 0.1 x10e3 /uL 0.0-0. 2 normal Not Available [facility] ([facility]) [address] [place], [address], 03/06/2024 06:08:06 03/05/20 24 03/06/2024 CBC WITH DIFFE RENTI AL/PL ATELE T immature granulocytes 0 % not estab. Not Available [facility] ([facility]) [address], [place], [address], 03/06/2024 06:08:06 03/05/20 24 03/06/2024 CBC WITH DIFFE RENTI AL/PL ATELE T immature grans (abs) 0.0 x10e3 /uL 0.0-0. 1 Not Available [facility] ([facility]) [address], [place], [address], 03/06/2024 06:08:06 03/05/20 24 03/06/2024 CBC WITH DIFFE RENTI AL/PL ATELE T NRBC 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 Not Available [facility] ([facility]) [address], [place], [address], 03/06/2024 06:08:06 03/05/20 24 03/06/2024 CBC WITH DIFFE RENTI AL/PL ATELE T hematology comments: 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 Not Available [facility] ([facility]) [address] [facility], [place], [address], 03/06/2024 06:08:06 03/05/20 24 03/06/2024 COMP. METAB OLIC PANEL (14) glucose 100 mg/dL 70-99 above high normal Not Available [facility] ([facility]) [address] [facility], [place], [address], 03/06/2024 06:08:08 03/05/20 24 03/06/2024 COMP. METAB OLIC PANEL (14) BUN 15 mg/dL 6-24 normal Not Available [facility] ([facility]) [address] [facility], [place], [address], 03/06/2024 06:08:08 03/05/20 24 03/06/2024 COMP. METAB OLIC PANEL (14) creatinine 1.40 mg/dL 0.76-1 .27 above high normal Not Available [facility] ([facility]) [address] [facility], [place], [address], 03/06/2024 06:08:08 03/05/20 24 03/06/2024 COMP. METAB OLIC PANEL (14) eGFR 65 mL/mi n/1.7 3 >59 normal Not Available [facility] ([facility]) [address] [facility], [place], [address], 03/06/2024 06:08:08 03/05/20 24 03/06/2024 COMP. METAB OLIC PANEL (14) BUN/creatini ne ratio 11 9-20 normal Not Available [facility] ([facility]) [address] [facility], [place], [address], 03/06/2024 06:08:08 03/05/20 24 03/06/2024 COMP. METAB OLIC PANEL (14) sodium 139 mmol/ L 134-14 4 normal Not Available [facility] ([facility]) [address] [facility], [place], [address], 03/06/2024 06:08:08 03/05/20 24 03/06/2024 COMP. METAB OLIC PANEL (14) potassium 5.3 mmol/ L 3.5-5. 2 above high normal Not Available [facility] ([facility]) [address] [facility], [place], [address], 03/06/2024 06:08:08 03/05/20 24 03/06/2024 COMP. METAB OLIC PANEL (14) chloride 100 mmol/ L 96-106 normal Not Available [facility] ([facility]) [address] [facility], [place], [address], 03/06/2024 06:08:08 03/05/20 24 03/06/2024 COMP. METAB OLIC PANEL (14) carbon dioxide, total 26 mmol/ L 20-29 normal Not Available [facility] ([facility]) [address] [facility], [place], [address], 03/06/2024 06:08:08 03/05/20 24 03/06/2024 COMP. METAB OLIC PANEL (14) calcium 9.7 mg/dL 8.7-10 .2 normal Not Available [facility] ([facility]) [address] [place], [address], 03/06/2024 06:08:08 03/05/20 24 03/06/2024 COMP. METAB OLIC PANEL (14) protein, total 7.0 g/dL 6.0-8. 5 normal Not Available [facility] ([facility]) [address], [place], [address], 03/06/2024 06:08:08 03/05/20 24 03/06/2024 COMP. METAB OLIC PANEL (14) albumin 4.5 g/dL 4.1-5. 1 normal Not Available [facility] ([facility]) [address], [place], [address], 03/06/2024 06:08:08 03/05/20 24 03/06/2024 COMP. METAB OLIC PANEL (14) globulin, total 2.5 g/dL 1.5-4. 5 Not Available [facility] ([facility]) [address] [place], [address], 03/06/2024 06:08:08 03/05/20 24 03/06/2024 COMP. METAB OLIC PANEL (14) bilirubin, total 0.3 mg/dL 0.0-1. 2 normal Not Available [facility] ([facility]) [address], [place], [address], 03/06/2024 06:08:08 03/05/20 24 03/06/2024 COMP. METAB OLIC PANEL (14) alkaline phosphatase 73 IU/L 44-121 normal Not Available [facility] ([facility]) [address], [place], [address], 03/06/2024 06:08:08 03/05/20 24 03/06/2024 COMP. METAB OLIC PANEL (14) AST (SGOT) 27 IU/L 0-40 normal Not Available [facility] ([facility] [address] [facility] [place], [address], 03/06/2024 06:08:08 03/05/20 24 03/06/2024 COMP. METAB OLIC PANEL (14) ALT (SGPT) 25 IU/L 0-44 normal Not Available [facility] ([facility] [address] [facility] [place], [address], 03/06/2024 06:08:08 03/05/20 24 03/06/2024 URINA LYSIS , COMPL ETE specific gravity 1.014 1.005- 1.030 normal Not Available [facility] ([facility]) [address] [facility] [place], [address], 03/06/2024 06:08:08 03/05/20 24 03/06/2024 URINA LYSIS , COMPL ETE pH 7.5 5.0-7. 5 normal Not Available [facility] ([facility]) [address] [facility] [place], [address], 03/06/2024 06:08:08 03/05/20 24 03/06/2024 URINA LYSIS , COMPL ETE urine-color Yellow yellow Not Available [facility] ([facility]) [address] [facility] [place], [address], 03/06/2024 06:08:08 03/05/2003/06/2024 URINA LYSIS , COMPL ETE appearance Clear clear Not Available [facility] ([facility]) [address] [place], [address], 03/06/2024 06:08:08 03/05/20 24 03/06/2024 URINA LYSIS , COMPL ETE WBC esterase Negati ve negati ve Not Available [facility] ([facility]) [address] [facility] [place], [address], 03/06/2024 06:08:08 03/05/20 24 03/06/2024 URINA LYSIS , COMPL ETE protein Negati ve negati ve/tra ce Not Available [facility] ([facility]) [address] [place], [address], 03/06/2024 06:08:08 03/05/20 24 03/06/2024 URINA LYSIS , COMPL ETE glucose Negati ve negati ve Not Available [facility] ([facility]) [address] [place], [address], 03/06/2024 06:08:08 03/05/20 24 03/06/2024 URINA LYSIS , COMPL ETE ketones Negati ve negati ve Not Available [facility] ([facility]) [address] [place], [address], 03/06/2024 06:08:08 03/05/20 24 03/06/2024 URINA LYSIS , COMPL ETE occult blood Negati ve negati ve Not Available [facility] ([facility]) [address] [place], [address], 03/06/2024 06:08:08 03/05/20 24 03/06/2024 URINA LYSIS , COMPL ETE bilirubin Negati ve negati ve Not Available [facility] ([facility]) [address] [place], [address], 03/06/2024 06:08:08 03/05/20 24 03/06/2024 URINA LYSIS , COMPL ETE urobilinogen ,semi-qn 0.2 mg/dL 0.2-1. 0 normal Not Available [facility] ([facility]) [address] [place], [address], 03/06/2024 06:08:08 03/05/20 24 03/06/2024 URINA LYSIS , COMPL ETE nitrite, urine Negati ve negati ve Not Available [facility] ([facility]) [address], [place], [address], 03/06/2024 06:08:08 03/05/20 24 03/06/2024 URINA LYSIS , COMPL ETE microscopic examination Commen t Micro scopi c follo ws if indic ated. Not Available [facility] ([facility]) [address] [facility], [place], [address], 03/06/2024 06:08:08 03/05/20 24 03/06/2024 URINA LYSIS , COMPL ETE microscopic examination See below: Micro scopi c was indic ated and was perfo rmed. Not Available [facility] ([facility]) [address] [facility], [place], [address], 03/06/2024 06:08:08 03/05/20 24 03/06/2024 URINA LYSIS , COMPL ETE WBC None seen /hpf 0 - 5 Not Available [facility] ([facility]) [address] [facility], [place], [address], 03/06/2024 06:08:08 03/05/20 24 03/06/2024 URINA LYSIS , COMPL ETE RBC None seen /hpf 0 - 2 Not Available [facility] ([facility]) [address] [facility], [place], [address], 03/06/2024 06:08:08 03/05/20 24 03/06/2024 URINA LYSIS , COMPL ETE epithelial cells (non renal) None seen /hpf 0 - 10 Not Available [facility] ([facility]) [address] [facility], [place], [address], 03/06/2024 06:08:08 03/05/20 24 03/06/2024 URINA LYSIS , COMPL ETE epithelial cells (renal) 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 Not Available [facility] ([facility]) [address] [facility], [place], [address], 03/06/2024 06:08:08 03/05/20 24 03/06/2024 URINA LYSIS , COMPL ETE casts None seen /lpf none seen Not Available [facility] ([facility]) [address], [place], [address], 03/06/2024 06:08:08 03/05/20 24 03/06/2024 URINA LYSIS , COMPL ETE cast type 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 Not Available [facility] ([facility]) [address], [place], [address], 03/06/2024 06:08:08 03/05/20 24 03/06/2024 URINA LYSIS , COMPL ETE crystals 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 Not Available [facility] ([facility]) [address], [place], [address], 03/06/2024 06:08:08 03/05/20 24 03/06/2024 URINA LYSIS , COMPL ETE crystal type 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 Not Available [facility] ([facility]) [address], [place], [address], 03/06/2024 06:08:08 03/05/20 24 03/06/2024 URINA LYSIS , COMPL ETE mucus threads 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 Not Available [facility] ([facility]) [address], [place], [address], 03/06/2024 06:08:08 03/05/20 24 03/06/2024 URINA LYSIS , COMPL ETE bacteria None seen none seen/f ew Not Available [facility] ([facility]) [address], [place], [address], 03/06/2024 06:08:08 03/05/20 24 03/06/2024 URINA LYSIS , COMPL ETE yeast 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 Not Available [facility] ([facility]) [address], [place], [address], 03/06/2024 06:08:08 03/05/20 24 03/06/2024 URINA LYSIS , COMPL ETE trichomonas 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 Not Available [facility] ([facility]) [address] [facility] [place], [address], 03/06/2024 06:08:08 03/05/20 24 03/06/2024 URINA LYSIS , COMPL ETE comment 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 Not Available [facility] ([facility]) [address] [place], [address], 03/06/2024 06:08:08 03/05/20 24 03/06/2024 LIPID PANEL cholesterol, total 259 mg/dL 100-19 9 above high normal Not Available [facility] ([facility]) [address] [place], [address], 03/06/2024 06:08:09 03/05/20 24 03/06/2024 LIPID PANEL triglyceride s 109 mg/dL 0-149 normal Not Available [facility] ([facility]) [address] [place], [address], 03/06/2024 06:08:09 03/05/20 24 03/06/2024 LIPID PANEL HDL cholesterol 97 mg/dL >39 normal Not Available [facility] ([facility]) [address] [place], [address], 03/06/2024 06:08:09 03/05/20 24 03/06/2024 LIPID PANEL VLDL cholesterol jaylen 18 mg/dL 5-40 Not Available [facility] ([facility]) [address] [place], [address], 03/06/2024 06:08:09 03/05/20 24 03/06/2024 LIPID PANEL LDL chol calc ([facility]) 144 mg/dL 0-99 above high normal Not Available [facility] ([facility]) [address] [place], [address], 03/06/2024 06:08:09 03/05/20 24 03/06/2024 LIPID PANEL LDL calc comment: 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 [email or web address] In-Office Order Internal Use Only DO Not Attach Compendium DO Not Attach Compendium, Do Not Delete/merge, [id number] 11/07/2021 11:52:03 11/07/19 22 elect rocar diogr am No observ ation record ed. acennerazzo In-Office Order Internal Use Only DO Not Attach Compendium DO Not Attach Compendium, Do Not Delete/merge, [id number] 11/06/2021 20:12:00 11/09/19 22 US, echoc ardio gram No observ ation record ed. [facility] [address], [address], 11/08/2021 16:52:09 12/22/19 22 12/12/2021 US, echoc ardio gram No observ ation record ed. [facility] [address] [facility], [place], [address], 12/22/2021 11:47:38 09/04/19 23 09/02/2022 exerc ise stres s test No observ ation record ed. [facility] Diagnostic Testing [address] [place], [address], 09/11/2022 18:58:21 09/07/19 23 09/02/2022 imagi ng/di agnos tic resul t No observ ation record ed. [facility] [address] [place], [address], 09/11/2022 19:00:30 03/02/20 24 03/02/2024 elect rocar diogr am No observ ation record ed. acennerazzo In-Office Order Internal Use Only DO Not Attach Compendium DO Not Attach Compendium, Do Not Delete/merge, [id number] 03/02/2024 12:13:17 03/02/20 24 elect kellie see am No observ ation record ed. acennerazzo In-Office Order Internal Use Only DO Not Attach Compendium DO Not Attach Compendium, Do Not Delete/merge, [id number] 03/02/2024 12:13:07 03/02/20 24 03/02/2024 audio gram No observ ation record ed. [email or web address] In-Office Order Internal Use Only DO Not Attach Compendium DO Not Attach Compendium, Do Not Delete/merge, [id number] 03/02/2024 13:42:23 Result Notes None recorded. Problems Name Problem SNOMED Code Status Onset Date Resolution Date Notes Provider Name and Address Organization Details Recorded Time Anemia 665962049 Completed 201202/03/2014 RECORDED 08/26/19 13 4:30PM BY COOPER ALARCON ON/ADDEN DUM Not Available [facility] 4 12:15:45 Impacted cerumen 12160578 Completed 201102/03/2014 RECORDED 02/24/20 12 1:21PM BY COOPER ALARCON ON/ADDEN DUM Not Available [facility] 4 12:15:45 Injury of knee 438213898 Completed 201102/03/2014 RECORDED 02/24/20 12 1:21PM BY COOPER ALARCON ON/ADDEN DUM Not Available [facility] 4 12:15:45 Administ ration of bacteria l and viral vaccine Completed 200902/03/2014 RECORDED 12/19/19 10 3:51PM BY DANE FLORIAN MA, OFFICE VISIT Not Available [facility] 4 12:15:45 Joint pain in ankle and foot Completed 201102/03/2014 RECORDED 02/24/20 12 1:21PM BY COOPER ALARCON ON/ADDEN DUM Not Available [facility] 4 12:15:45 Adult health examinat ion Completed 201202/03/2014 RECORDED 08/26/19 13 4:30PM BY INDERJIT ALARCONATI ON/ADDEN DUM Not Available [facility] 4 12:15:45 Anemia 146334548 Completed 201202/04/2014 RECORDED 08/26/19 13 4:30PM BY INDERJIT ALARCONATI ON/ADDEN DUM Not Available [facility] 4 03:34:20 Impacted ramez 13383738 Completed 201102/04/2014 RECORDED 02/24/20 12 1:21PM BY INDERJIT ALARCONATI ON/ADDEN DUM Not Available [facility] 4 03:34:20 Injury of knee 591019701 Completed 201102/04/2014 RECORDED 02/24/20 12 1:21PM BY INDERJIT ALARCONATI ON/ADDEN DUM Not Available [facility] 4 03:34:20 Administ ration of bacteria l and viral vaccine Completed 200902/04/2014 RECORDED 12/19/19 10 3:51PM BY DANE FLORIAN MA, OFFICE VISIT Not Available [facility] 4 03:34:20 Joint pain in ankle and foot Completed 201102/04/2014 RECORDED 02/24/20 12 1:21PM BY COOPER ALARCON ON/ADDEN DUM Not Available [facility] 4 03:34:20 Adult health examinat ion Completed 201202/04/2014 RECORDED 08/26/19 13 4:30PM BY INDERJIT ALARCONATI ON/ADDEN DUM Not Available [facility] 4 03:34:20 Anemia 907516323 Completed 201201/11/2014 RECORDED 08/26/19 13 4:30PM BY INDERJIT ALARCONATI ON/ADDEN DUM Not Available [facility] 4 13:47:39 General examinat ion of patient Completed 201202/28/2015 RECORDED 10/09/19 13 10:15AM BY COOPER ALARCON ON/ADDEN DUM Humphrey Easton MD [address] [facility] [address], [place], [address] , [facility] 5 16:03:31 Esdras myrick [id number] Completed 201101/11/2014 RECORDED 02/24/20 12 1:21PM BY COOPER ALARCON ON/ADDEN DUM Not Available [facility] 4 13:47:39 Injury of knee 817212562 Completed 201101/11/2014 RECORDED 02/24/20 12 1:21PM BY COOPER ALARCON ON/ADDEN DUM [facility] Available [facility] 4 13:47:39 Shoulder joint pain 669782445 Active 2013 IMPRESSI ON: HE WAS GIVEN A HANDOUT WITH EXERCISE S HE WILL DO AT HOME. HE WAS ALSO ADVISED ON HOW TO USE ICE AND HEAT DURING THE DAY. Not Available [facility] 3 14:22:13 Administ ration of bacteria l and viral vaccine Completed 200901/11/2014 RECORDED 12/19/19 10 3:51PM BY DANE FLORIAN MA, OFFICE VISIT Not Available [facility] 4 13:47:40 Joint pain in ankle and foot Completed 201101/11/2014 RECORDED 02/24/20 12 1:21PM BY COOPER ALARCON ON/ADDEN DUM Not Available [facility] 4 13:47:40 Adult health examinat ion Completed 201201/11/2014 RECORDED 08/26/19 13 4:30PM BY COOPER ALARCON ON/ADDEN DUM Not Available [facility] 4 13:47:40 Sprain of ankle 22609029 Active [address] WILLIAM [place] Not Available [facility] 3 14:22:13 Swelling of finger joint 472870906 Active Not Available [facility] 3 14:22:13 Seizure disorder 754233335 Active Not Available [facility] 3 14:22:13 Knee pain Active Not Available [facility] 3 14:22:13 Liver enzymes level above referenc e range 485862117 Active 2016 Not Available [facility] 3 14:22:13 Serum creatini ne above referenc e range 708799658 Active 2018 Seen by renal; benign; Humphrey Easton MD [address] [address], [place], [address] , [facility] 9 14:54:43 Right patellar tendon rupture 28089892371 095893 Active 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 Humphrey Easton MD [address] [address], [place], [address] , [facility] 4 11:32:18 Traumati c rupture of patellar tendon 835487640 Active 2023 Humphrey Easton MD [address] [address], [place], [address] , [facility] 4 09:04:57 Fracture of knee 229033658 Active 2023 Humphrey Easton MD [address] [address], [place], [address] , [facility] 4 09:04:58 Problem Notes None recorded. Procedures Surgical History Date Name Laterality Status Provider Name and Address Organization Details Recorded Time 4 Knee Surgery completed Kelly Ahuja MA [facility] 05/06/2024 15:07:59 3 Orthopedic Surgery completed Humphrey Easton MD [address] [address], [place], [address], [facility] 02/23/2014 15:07:30 9 Orthopedic Surgery completed Humphrey Easton MD [address] [address], [place], [address], [facility] 02/23/2014 15:07:30 Imaging Results Imaging Date Name Status LastModified by Organization Details LastModified Time 11/07/2021 electrocardiogram completed [email or web address] In-Off ice Order Internal Use Only DO Not Attach Compendium DO Not Attach Compendium, Do Not Delete/merge, [id number] 11/07/2021 11:52:03 11/06/2021 electrocardiogram completed acennerazzo In-Off ice Order Internal Use Only DO Not Attach Compendium DO Not Attach Compendium, Do Not Delete/merge, [id number] 11/06/2021 20:12:00 11/08/2021 US, echocardiogram completed [facility] [address], [place], [address], 11/08/2021 16:52:09 12/12/2021 US, echocardiogram completed [facility] [address], [place], [address], 12/22/2021 11:47:38 09/02/2022 exercise stress test completed [facility] [address], [place], [address], 09/11/2022 18:58:21 09/02/2022 imaging/diagnostic result completed [facility] [address], [place], [address], 09/11/2022 19:00:30 03/02/2024 electrocardiogram completed acennerazzo In-Off ice Order Internal Use Only DO Not Attach Compendium DO Not Attach Compendium, Do Not Delete/merge, [id number] 03/02/2024 12:13:17 03/02/2024 electrocardiogram completed acennerazzo In-Off ice Order Internal Use Only DO Not Attach Compendium DO Not Attach Compendium, Do Not Delete/merge, [id number] 03/02/2024 12:13:07 03/02/2024 audiogram completed acennerazzo In-Office Ord er Internal Use Only DO Not Attach Compendium DO Not Attach Compendium, Do Not Delete/merge, [id number] 03/02/2024 13:42:23 Procedure Notes None recorded. Medical Equipment None Reported. Allergies Allergen ID Allergen Name Allergen Category Reaction Reaction Severity Criticality Documentation Date Start Date Code Code System Note Provider Name and Address Organization Details Recorded Time 10921 No known allergy (situatio n) Not available Not available Not available Not available 06/18/2023 13774 6003 SNOMED Jacque Patten ganga [facility] 3 14:29:41 No known drug allergies Medications Name Sig Start Date Stop Date Status Note LastModified by Organization Details LastModified Time celecoxib 200 mg capsule 05/06 completed Not Available Not Available Not Available cyclobenz aprine 10 mg tablet TAKE 1 TABLET AT BEDTIME NEEDED MUSCLE SPASM FOR 7 DAYS 11/06 completed Not Available Not Available Not Available amoxicill in 500 mg capsule 11/06 completed Not Available Not Available Not Available acetamino phen 325 mg tablet 05/06 completed Not Available Not Available Not Available ibuprofen 800 mg tablet TAKE 1 TABLET (ORAL) EVERY 8 HOURS NEEDED FOR PAIN FOR 7 DAYS TAKE WITH FOOD 11/06 completed Not Available Not Available Not Available carbamaze pine 200 mg tablet Take 1 tablet twice a day by oral route for 90 days. active Not Available Not Available No t Available oxycodone -acetamin ophen 5 mg-325 mg tablet THREE TIMES DAILY, NEEDED 09/05 completed RECORDED 09/09/19 13 11:09AM BY HUMPHREY KUHN MD, MEDICATI ON AUTO-MONA CTIVATIO N; Not Available Not Available Not Available oxycodone 5 mg tablet 05/06 completed Not Available Not Available Not Available Vitals Date Recorded Body height Body mass index (BMI) Body weight Heart rate Oxygen saturation Oxygen saturation in Arterial blood by Pulse oximetry Body temperature Systolic blood pressure Diastolic blood pressure Provider Name and Address Organization Details Last Updated DateTime 2 180.34 cm 25.3 kg/m2 99114.6 2 g 74 /min 99 % 99 % 98.24 [degF] 116 mm[Hg] 75 mm[Hg] Nicky Bonds MA [facility] 2 14:20:29 Date Recorded Body height Provider Name an d Address Organization Details Last Updated DateTime 06/13/2022 180.34 cm Nicky Bonds MA [facility] 06/13/2022 15:00:21 Date Recorded Body height Body mass index (BMI) Body weight Heart rate Oxygen saturation Oxygen saturation in Arterial blood by Pulse oximetry Body temperature Systolic blood pressure Diastolic blood pressure Provider Name and Address Organization Details Last Updated DateTime 3 180.34 cm 24.8 kg/m2 79668.4 4 g 75 /min 97 % 97 % 97.9 [degF] 116 mm[Hg] 63 mm[Hg] Tessa Matias MA [facility] 3 12:43:19 Date Recorded Body height Body mass index (BMI) Body weight Heart rate Oxygen saturation Oxygen saturation in Arterial blood by Pulse oximetry Body temperature Systolic blood pressure Diastolic blood pressure Provider Name and Address Organization Details Last Updated DateTime 4 180.34 cm 24.3 kg/m2 71369.0 7 g 70 /min 99 % 99 % 98 [degF] 133 mm[Hg] 78 mm[Hg] Kelly Ahuja MA [facility] 4 11:12:48 Date Recorded Body height Provider Name an d Address Organization Details Last Updated DateTime 05/06/2024 180.34 cm Kelly Ahuja MA [facility] 05/06/2024 15:04:51 Social History Question Answer Notes LastModified by Organizat ion Details LastModified Time Tobacco Smoking Status Never Smoker Not Available [facility] 05/02/2020 03:36:37 Do You Have An Advance Directive? Yes [facility] Information not available 09/18/2020 What Is Your Level Of Alcohol Consumption? Occasional Family Events [id number] Information not available 05/02/2020 Is Blood Transfusion Acceptable In An Emergency? Yes [id number] Information not available 05/02/2020 What Is Your Level Of Caffeine Consumption? Moderate 1 Cup Tea Daily Information not available 11/21/2021 How Much Tobacco Do You Chew? None [id number] Information not available 05/02/2020 Are You Currently Employed? Yes [id number] Information not available 05/02/2020 What Type Of Diet Are You Following? REGULAR [id number] Information not available 05/02/2020 Which Illicit Or Recreational Drugs Have You Used? Marijuana Information not available 05/24/2020 Do You Or Have You Ever Used E-cigarettes Or Vape? 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 [email or web address] Information not available 03/02/2024 Live Alone Or With Others? With Others With His Girfriend Since 2021; Has 2 Children From A Previous Relationship And They Stay With Him Regularly. [email or web address] Information not available 03/02/2024 Do You Take Precautions To Prevent Distracted Driving? Yes [employer] Information not available 02/28/2015 How Often Do You Need To Have Someone Help You When You Read Instructions, Pamphlets, Or Other Written Material From Your Doctor Or Pharmacy? Sometimes [employer] Information not available 02/28/2015 Have You Served In The ? No [employer] Information not available 05/07/2017 Have You Or Anyone In Your Household Had Any Of The Following Symptoms In The Last 14 Days: Sore Throat, Cough, Chills, Body Aches For Unknown Reasons, Shortness Of Breath For Unknown Reasons, Loss Of Smell, Loss Of Taste, Fever At Or Greater Than 100 Degrees Fahrenheit? No Information not available 05/24/2020 Are You Or Anyone In Your Household A Health Care Provider Or Emergency Responder? No Information not available 05/24/2020 To The Best Of Your Knowledge Have You Been In Close Proximity To Any Individual Who Tested Positive For COVID-19? No Information not available 05/24/2020 What Was The Date Of Your Most Recent Tobacco Screening? 03/02/2024 Information not available 03/02/2024 How Many Children Do You Have? 2 Daughter Born 2006 And Son Born In 2010 [id number] Information not available 05/02/2020 Do You Use Protection During Sex? No [id number] Information not available 05/02/2020 Seat Belts Used Routinely Yes [employer] Information not available 02/28/2015 Are You Sexually Active? Yes [id number] Information not available 05/02/2020 Smoke Alarm In Home Yes Information not available 02/28/2015 At What Age Did You Start Smoking Tobacco? 0 Information not available 05/30/2020 Are You Passively Exposed To Smoke? No Information not available 02/28/2015 Do You Or Have You Ever Used Smokeless Tobacco? Never Used Smokeless Tobacco [id number] Information not available 05/02/2020 Do You Use Any Illicit Or Recreational Drugs? No Information not available 11/21/2021 Do You Use Sunscreen Routinely? Yes [id number] Information not available 05/02/2020 How Many Years Have You Smoked Tobacco? 0 Information not available 05/30/2020 Do You Or Have You Ever Used Any Other Forms Of Tobacco Or Nicotine? No Information not available 11/21/2021 Sex: Unknown Functional Status Question Answer Note LastModified by Organization D etails LastModified Time Are you able to walk? YESWOREST Information not available 11/21/2021 Are you able to care for yourself? Yes [id number] Information not available 05/02/2020 What is your exercise level? Heavy [id number] Information not available 05/02/2020 Mental Status None recorded. Family History Relationship Description Onset Age of this Age Resolved Age Notes LastModified by Organization Details LastModified Time Father Hypercholest erolemia [email or web address] Not available 06/2014 17:02:23 Sister Hypertensive disorder [email or web address] Not available 06/2014 17:02:23 Notes:1 brother and 1 sister . He's in the middle. Medical History No medical history recorded. Immunizations Vaccine Type Date Status Note Provider Homar rea and Address Organization Details Recorded Time Tdap 0 completed Not Available [facility] 01/11/2014 13:24:41 COVID-19, mRNA, LNP-S, PF, 100 mcg/0.5mL dose or 50 mcg/0.25mL dose [facility] 14:29:57 COVID-19, mRNA, LNP-S, PF, 100 mcg/0.5mL dose or 50 mcg/0.25mL dose 1 completed Jacque schuler [facility] 06/18/2023 14:29:57 Tdap 9 completed Not Available [facility] 07/17/2019 02:21:51 Influenza, split virus, quadrivalent , PF 0 cancelled patient objection BRENDA Morocho [facility] 05/24/2020 15:43:04 Past Encounters Encounter ID Performer Location Encounter Start Date Encounter Closed Date Diagnosis/Indication Diagnosis SNOMED-CT Code Diagnosis ICD10 Code 69729 autoEComm erce [address] [facility] [place] [address] 02/19/2006 00:00:00 85944 autoEComm erce [address] [facility] [place] [address] 09/09/2005 00:00:00 25314 autoEComm erce [address] [facility] [place] [address] 04/10/2005 00:00:00 49946 autoEComm erce [address] [facility] [place] [address] 07/21/2007 00:00:00 57510 autoEComm erce [address] [facility] [place] [address] 01/19/2009 00:00:00 84489 autoEComm erce [address] [facility] [place] [address] 12/18/2009 00:00:00 54668 autoEComm erce [address] [facility] [place] [address] 12/19/2010 00:00:00 02646 autoEComm erce [address] [facility] [place] [address] 03/23/2012 00:00:00 32748 autoEComm erce [address] [facility] [place] [address] 08/26/2012 00:00:00 28627 [facility]Comm [facility]ce [address] [place] [address] 09/08/2012 00:00:00 [id number] Elpidio Onofrekaleb Main Office [address] [address] [place] [address] 02/23/2014 14:08:45 02/23/2014 15:28:38 Adult health examination 675673201 Swelling o f finger joint 924943956 Seizure disorder 0382785 02 [id number] Elpidio Onofrekaleb Main Office [address] [address] [place] [address] 02/28/2015 15:38:57 02/28/2015 16:23:55 Adult health examination 877422370 Knee pain 41109958 [id number] Humphrey Easton MD Main Office [address] [address] [place] [address] 05/07/2017 15:45:40 05/07/2017 16:57:31 Adult health examination 736372146 Z00.00 Seizure disorder 3805451 02 G40.909 [id number] Humphrey Easton MD Main Office [address] [address] [place] [address] 05/15/2018 15:44:06 05/15/2018 16:34:21 Adult health examination 453637296 Z00.00 Seizure disorder 3364628 02 G40.909 [id number] Humphrey Easton MD Main Office [address] [address] [place] [address] 05/19/2019 15:44:50 05/19/2019 16:48:04 Adult health examination 251415391 Z00.00 Administra tion of viral vaccine 72153463 Z23 Seizure disorder 2736781 02 G40.909 Exposure t o sexually transmissible disorder 240448666 Z20.2 [id number] Humphrey Easton MD Main Office [address] [address] [place] [address] 05/24/2020 15:25:03 05/24/2020 16:16:55 Adult health examination 345091661 Z00.00 Influenza vaccination declined 485082831 Z28.21 Seizure disorder 5389087 02 G40.909 Insomnia 827717992 G47.0 0 [id number] Humphrey Easton MD [address] [address] [place] [address] 09/18/2020 14:08:27 09/19/2020 09:31:08 Seizure disorder 286804695 G40.909 [id number] Humphrey Easton MD Main Office [address] [place] [address] [place] [address] 11/06/2021 15:36:49 11/07/2021 09:06:34 Syncope 181998828 R55 [id number] Humphrey Easton MD Main Office [address] [place] [address] [place] [address] 11/21/2021 13:50:31 11/21/2021 14:46:19 Adult health examination 975039472 Z00.00 Seizure disorder 6505360 02 G40.909 Serum crea tinine above reference range 715797701 R79.89 [id number] Humphrey Easton MD [address] [address] [place] [address] 06/13/2022 14:30:07 06/14/2022 09:08:06 Anterior chest wall pain 241447165 R07.89 Syncope 893577654 R55 [id number] Humphrey Easton MD Main Office [address] [place] [address] [place] [address] 11/26/2022 12:36:15 11/26/2022 13:33:43 Adult health examination 626047970 Z00.00 Liver enzy mes level above reference range 567312203 R74.01 Seizure disorder 0030514 02 G40.909 [id number] Humphrey Easton MD Main Office [address] [place] [address] [place] [address] 03/02/2024 10:37:14 03/02/2024 12:31:00 Adult health examination 465133850 Z00.00 Seizure disorder 2748219 02 G40.909 [id number] [facility] [address] [place] [address] 05/06/2024 14:50:50 05/06/2024 16:39:07 Fracture of knee 484028549 S82.90XA Traumatic rupture of patellar tendon 660845320 S76.111A Health Concerns Section Related Observation LastModified by Organization Detai ls LastModified Time None Recorded Concern Status LastModified by Organization Details LastModified Time None Recorded Advance Directives Directive Y: HCP Payers Encounter Date Sequence Insurance Name Policy Number Policy Friedman Covered Member ID Friedman Member ID Guarantor Name 11/21/2021 1 [facility] [id number] Jakub M Andrés [id number] [facility] 06/13/2022 1 [facility] [id number] Jakubtrevor Bowen [id number] Jakub Andrés 11/26/2022 1 [facility] [id number] Jakubtrevor Bowen [id number] Jakub Andrés 03/02/2024 1 [facility] PLAN (MEDICAID HMO) [id number] Jakubtrevor Bowen [id number] Jakub Andrés 03/02/2024 2 [place] [id number] Jakub Andrés 05/06/2024 1 [facility] PLAN (MEDICAID HMO) [id number] Jaukb Andrés [id number] Jakub Andrés 05/06/2024 2 [place] [id number] Jakub Andrés Notes Date Note Type Note Provider Name and Address Organization Details Recorded Time 11/21/2021 text/html Generic HPI TemplateReported bypatient.Notes:No more syncopal episodes since he was her last. His w/u has been negative including EKG and labs. He is scheduled for a ECHO next month. Humphrey Easton MD [address] [facility] [address], [place], [address], [facility] 11/21/2021 17:21:47 06/13/2022 text/html He has been gett ing recurrent anterior wall chest pain over the past 5- months. The pain can be severe and he is unable to work or exert himself when this happens. He had a normal cardiac w/u including an EKG and ECHO. The episode will last a day and resolves with rest and NSAIDs. He denies radiation or diaphoresis. He had an episode of syncope earlier in the year and is concerns about this happening again. Humphrey Easton MD [address] [address], [place], [address], [facility] [place] 06/19/2022 17:51:24 11/26/2022 text/html Generic HPI TemplateReported bypatient.Notes:He has been doing well. No current complaints.Vaccinated against COVID and has never been infected.Works 2 jobs. Humphrey Easton MD [address] [address], [place], [address], [facility] 11/26/2022 14:54:23 03/02/2024 text/html Generic HPI TemplateReported bypatient.Notes:He has been doing well health-[facility] since his last appointment.Exercises regularly at the gym and has started boxing which he finds therapeutic.He was fired from his job at [employer] earlier this year and is pursuing a wrongful termination case.Lives with his girlfriend and has shared custody with his 2 children. 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 He suffered an avulsion fracture as well as a torn patellar tendon. He was seen in the ER and given a knee brace and he scheduled an appointment with [facility] for 04/23/24. His pain was increasing and he was having difficulty ambulating so he called [facility] and got a sooner appointment on 04/19/24 He was seen and had surgery done the following day , 04/20/[address] Vila. It was important to do this quickly since the tendon can recede making surgery difficult if delayed. He recently had his sutures removed and he has been mostly bed bound and unable to ambulate or bear weight. His first PT appointment is 05/20/24 and his next ortho appointment is 06/03/24. He currently has difficulty with most of his ADL's; bathing, dressing, toileting and transferring and is looking for assistance. Humphrey Easton MD [address] [address], [place], [address], [facility] 05/08/2024 09:09:46
--- OUTSIDE RECORDS SUMMARY | 2024-06-09 06:51 | XMS_ITS | Continuity of Care Document ---
Author Organization [facility] Address [address] [facility] [address] [facility] [address] [place] [address] Care Team Providers Care Burn Table Operator Name Role Phone HUMPHREY EASTON Primary Care Provider SAMIA JOSHI Referring Provider [phone] JESSA CLARKE Referring Provider CASSANDRA SCHNEIDER Referring Provider Assessment Encounter Date Assessment Date Assessment LastModified by Organization Details LastModified Time 05/06/2024 05/06/2024 This service was provided using telemedicine. Patient consented to video & audio visit Patient was located in the [facility]. Provider was located in the office. No other persons participated in the telemedicine visit except for the patient unless otherwise indicated here. {{}} Total time of visit was 17 minutes. [email or web address] Not available 05/08/2024 09:02:38 Plan of Treatment Reminders Order Date Submit Date Provider Last Modified By Organization Details Last Modified Time Details Appointments None record ed. Lab None record ed. Referral None record ed. Procedures None record ed. Surgeries None record ed. Imaging None record ed. Medication Orders None record ed. Patient TargetsNo targets recorded. Patient InstructionsNo instructions recorded. Reason for Referral None Reported. Problems Name Problem SNOMED Code Status Onset Date Resolution Date Notes Provider Name and Address Organization Details Recorded Time Anemia 126529129 Completed 201202/03/2014 RECORDED 08/26/19 13 4:30PM BY COOPER ALARCON/DEBRA MCLAUGHLIN Not Available [facility] 4 12:15:45 Esdras myrick 14649208 Completed 201102/03/2014 RECORDED 02/24/20 12 1:21PM BY INDERJIT ALARCONATI ON/ADDEN DUM Not Available [facility] 4 12:15:45 Injury of knee 111871364 Completed 201102/03/2014 RECORDED 02/24/20 12 1:21PM BY RIGO LYON I ANNOTATI ON/ADDEN DUM Not Available [facility] 4 12:15:45 Administ ration of bacteria l and viral vaccine Completed 200902/03/2014 RECORDED 12/19/19 10 3:51PM BY DANE FLORIAN MA, OFFICE VISIT Not Available [facility] 4 12:15:45 Joint pain in ankle and foot Completed 201102/03/2014 RECORDED 02/24/20 12 1:21PM BY INDERJIT ALARCONATI ON/ADDEN DUM Not Available [facility] 4 12:15:45 Adult health examinat ion Completed 201202/03/2014 RECORDED 08/26/19 13 4:30PM BY INDERJIT ALARCONATI ON/ADDEN DUM Not Available [facility] 4 12:15:45 Anemia 108701221 Completed 201202/04/2014 RECORDED 08/26/19 13 4:30PM BY INDERJIT ALARCONATI ON/ADDEN DUM Not Available [facility] 4 03:34:20 Impacted cerumen 16025680 Completed 201102/04/2014 RECORDED 02/24/20 12 1:21PM BY INDERJIT ALARCONATI ON/ADDEN DUM Not Available [facility] 4 03:34:20 Injury of knee 837895788 Completed 201102/04/2014 RECORDED 02/24/20 12 1:21PM BY RIGO LYON I ANNOTATI ON/ADDEN DUM Not Available [facility] 4 03:34:20 Administ ration of bacteria l and viral vaccine Completed 200902/04/2014 RECORDED 12/19/19 10 3:51PM BY DANE FLORIAN MA, OFFICE VISIT Not Available [facility] 4 03:34:20 Joint pain in ankle and foot Completed 201102/04/2014 RECORDED 02/24/20 12 1:21PM BY COOPER ALARCON ON/ADDEN DUM Not Available [facility] 4 03:34:20 Adult health examinat ion Completed 201202/04/2014 RECORDED 08/26/19 13 4:30PM BY COOPER ALARCON ON/ADDEN DUM Not Available [facility] 4 03:34:20 Anemia 687068413 Completed 201201/11/2014 RECORDED 08/26/19 13 4:30PM BY COOPER ALARCON ON/ADDEN DUM Not Available [facility] 4 13:47:39 General examinat ion of patient Completed 201202/28/2015 RECORDED 10/09/19 13 10:15AM BY COOPER ALARCON ON/ADDEN DUM Humphrey Easton MD [address] [facility] [address], [facility] [place], [address] , [facility] 5 16:03:31 Impacted cerumen 43760607 Completed 201101/11/2014 RECORDED 02/24/20 12 1:21PM BY COOPER ALARCON ON/ADDEN DUM Not Available [facility] 4 13:47:39 Injury of knee 366369675 Completed 201101/11/2014 RECORDED 02/24/20 12 1:21PM BY COOPER ALARCON ON/ADDEN DUM Not Available [facility] 4 13:47:39 Shoulder joint pain 510761922 Active 2013 IMPRESSI ON: HE WAS GIVEN A HANDOUT WITH EXERCISE S HE WILL DO AT HOME. HE WAS ALSO ADVISED ON HOW TO USE ICE AND HEAT DURING THE DAY. Not Available [facility] 3 14:22:13 Administ ration of bacteria l and viral vaccine Completed 200901/11/2014 RECORDED 12/19/19 10 3:51PM BY DANE FLORIAN MA, OFFICE VISIT Not Available [facility] 4 13:47:40 Joint pain in ankle and foot Completed 201101/11/2014 RECORDED 02/24/20 12 1:21PM BY RIGO LYON I, ANNOTATI ON/ADDEN DUM Not Available [facility] 4 13:47:40 Adult health examinat ion Completed 201201/11/2014 RECORDED 08/26/19 13 4:30PM BY RIGO LYON I, ANNOTATI ON/ADDEN DUM Not Available [facility] 4 13:47:40 Sprain of ankle 55041563 Active [address] WILLIAM [place] Not Available [facility] 3 14:22:13 Swelling of finger joint 235858611 Active Not Available [facility] 3 14:22:13 Seizure disorder 997485529 Active Not Available [facility] 3 14:22:13 Knee pain Active Not Available [facility] 3 14:22:13 Liver enzymes level above referenc e range 366851240 Active 2016 Not Available 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 Humphrey Easton MD [address] [facility] [address], [place], [address] , [facility] 4 11:32:18 Traumati c rupture of patellar tendon 545625743 Active 2023 Humphrey Easton MD [address] [facility] [address], [place], [address] , [facility] 4 09:04:57 Fracture of knee 540604840 Active 2023 Humphrey Easton MD [address] [address], [place], [address] , [facility] 4 09:04:58 Problem Notes None recorded. Procedures Surgical History Date Name Laterality Status Provider Name and Address Organization Details Recorded Time 4 Knee Surgery completed Kelly Ahuja [facility] 05/06/2024 15:07:59 3 Orthopedic Surgery completed Humphrey Easton MD [address], [address], [facility] 02/23/2014 15:07:30 9 Orthopedic Surgery completed Humphrey Easton MD [address], [address], [facility] 02/23/2014 15:07:30 Imaging Results None recorded. Procedure Notes None recorded. Medical Equipment None Reported. Allergies Allergen ID Allergen Name Allergen Category Reaction Reaction Severity Criticality Documentation Date Start Date Code Code System Note Provider Name and Address Organization Details Recorded Time 05135 No known allergy (situatio n) Not available Not available Not available Not available 06/18/2023 [address]0591 6003 SNOMED [facility] 14:29:41 No known drug allergies [...] Not Available Vitals Date Recorded Body height Provider Name an d Address Organization Details Last Updated DateTime 05/06/2024 180.34 cm Kelly Ahuja MA [facility] 05/06/2024 15:04:51 Social History Question Answer Notes LastModified by Organizat ion Details LastModified Time Tobacco Smoking Status Never Smoker Not Available [facility] 05/02/2020 03:36:37 Do You Have An Advance Directive? Yes HCP Information not available 09/18/2020 What Is Your Level Of Alcohol Consumption? Occasional Family Events [id number] Information not available 05/02/2020 Is Blood Transfusion Acceptable In An Emergency? Yes [id number] Information not available 05/02/2020 What Is Your Level Of Caffeine Consumption? Moderate 1 Cup Tea Daily Information not available 11/21/2021 How Much Tobacco Do You Chew? None [id number] Information not available 05/02/2020 Are You Currently Employed? Yes [id number] Information not available 05/02/2020 What Type Of Diet Are You Following? REGULAR [id number] Information not available 05/02/2020 Which Illicit Or Recreational Drugs Have You Used? Marijuana Information not available 05/24/2020 Do You Or Have You Ever Used E-cigarettes Or Vape? 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 Information not available 03/02/2024 Live Alone Or With Others? With Others With His Girfriend Since 2021; Has 2 Children From A Previous Relationship And They Stay With Him Regularly. Information not available 03/02/2024 Do You Take Precautions To Prevent Distracted Driving? Yes chris Information not available 02/28/2015 How Often Do You Need To Have Someone Help You When You Read Instructions, Pamphlets, Or Other Written Material From Your Doctor Or Pharmacy? Sometimes [email or web address] Information not available 02/28/2015 Have You Served In The ? No Information not available 05/07/2017 Have You Or [...] Of Your Most Recent Tobacco Screening? 03/02/2024 [email or web address] Information not available 03/02/2024 How Many Children Do You Have? 2 Daughter Born 2006 And Son Born In 2010 [id number] Information not available 05/02/2020 Do You Use Protection During Sex? No [id number] Information not available 05/02/2020 Seat Belts Used Routinely Yes Information not available 02/28/2015 Are You Sexually Active? Yes [id number] Information not available 05/02/2020 Smoke Alarm In Home Yes Information not available 02/28/2015 At What Age Did You Start Smoking Tobacco? 2 [id number] Information not available 05/30/2020 Are You Passively Exposed To Smoke? No Information not available 02/28/2015 Do You Or Have You Ever Used Smokeless Tobacco? Never Used Smokeless Tobacco [id number] Information not available 05/02/2020 Do You Use Any Illicit Or Recreational Drugs? No Information not available 11/21/2021 Do You Use Sunscreen Routinely? Yes [id number] Information not available 05/02/2020 How Many Years [...] you able to care for yourself? Yes [id number] Information not available 05/02/2020 What is your exercise level? Heavy [id number] Information not available 05/02/2020 Mental Status None recorded. Family History Relationship Description Onset Age of this Age Resolved Age Notes LastModified by Organization Details LastModified Time Father Hypercholest erolemia [email or web address] Not available 06/2014 17:02:23 Sister Hypertensive disorder [email or web address] Not available 06/2014 17:02:23 Notes:1 brother and 1 sister . He's in the middle. Medical History No medical history recorded. Immunizations Vaccine Type Date Status Note Provider Nam e and Address Organization Details Recorded Time Tdap 0 completed Not Available [facility] 01/11/2014 13:24:41 COVID-19, mRNA, LNP-S, PF, 100 mcg/0.5mL dose or 50 mcg/0.25mL dose 1 completed Jacque schuler [facility] 06/18/2023 14:29:57 COVID-19, mRNA, LNP-S, PF, 100 mcg/0.5mL dose or 50 mcg/0.25mL dose 1 completed Jacque schuler [facility] 06/18/2023 14:29:57 Tdap 9 completed Not Available [facility] 07/17/2019 02:21:51 Influenza, split virus, quadrivalent , PF 0 cancelled patient objection BRENDA Morocho [facility] 05/24/2020 15:43:04 Past Encounters Encounter ID Performer Location Encounter Start Date Encounter Closed Date Diagnosis/Indication Diagnosis SNOMED-CT Code Diagnosis ICD10 Code [id number] Humphrey Easton MD Located within [facility] [address] [facility] [address] [place] [address] 05/06/2024 14:50:50 05/06/2024 16:39:07 Fracture of knee 152397742 S82.90XA Traumatic rupture of patellar tendon 770799881 S76.111A Health Concerns Section Related Observation LastModified by Organization Detai ls LastModified Time None Recorded Concern Status LastModified by Organization Details LastModified Time None Recorded Payers Encounter Date Sequence Insurance Name Policy Number Policy Friedman Covered Member ID Friedman Member ID Guarantor Name 05/06/2024 1 [facility] PL[facility] (MEDICAID HMO) [id number] Jakub Bowen [id number] Jakub Bowen 05/06/2024 2 [place]: [facility] Jakub Bowen [id number] Jakub Bowen Notes Date Note Type Note Provider Name and Address Organization Details Recorded Time 05/06/2024 text/html 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 He suffered an avulsion fracture as well as a torn patellar tendon. He was seen in the ER and given a knee brace and he scheduled an appointment with [facility] for 04/23/24. His pain was increasing and he was having difficulty ambulating so he called [facility] and got a sooner appointment on [...] looking for assistance. Humphrey Easton MD [address] [address], [place], [address], [facility] 05/08/2024 09:09:46
== END 2024-06-04 10:12 | disposition home or self-care (01) ==
PROVIDERS: Visit Provider Physician Assistant
DX: S86.811D Strain of other muscle(s) and tendon(s) at lower leg level, right leg, subsequent encounter (principal)
CPT/HCPCS: 99024

== ENCOUNTER → 2024-06-04 09:13 | Outpatient (BNVA) | payer OTHER, SELFPAY | PROVIDERS: Visit Provider Physician Assistant | DX: S86.811D Strain of other muscle(s) and tendon(s) at lower leg level, right leg, subsequent encounter (principal); X58.XXXD Exposure to other specified factors, subsequent encounter; Z98.890 Other specified postprocedural states | CPT/HCPCS: 99212 ==

== ENCOUNTER 2024-07-05 10:56 | Outpatient (AMB) | payer OTHER, SELFPAY ==
--- NOTE | 2024-07-05 11:26 | A.OFFVIS_ITS ---
Intake Visit Reasons: PO - RT patella tendon repair 04/20/24 NE Intake Note: Jakub is a 44 year old male who presents today for a post operative appointment s/p Right Patella tendon repair 04/20/24. Continues to wear his brace locked in extension with weight bearing. Patient reports that he is doing better, but he continues to struggle with ROM. He is working with PT on this. Allergies No Known Allergies Allergy (Verified 07/05/24 11:28) HPI HPI PO - RT patella tendon repair 04/20/24 NE: Details: Jakub is a 44 year old male who presents today for a post operative appointment s /p Right Patella tendon repair 04/20/24. Continues to wear his brace locked in extension with weight bearing. Patient reports that he is doing better, but he continues to struggle with ROM. He is working with PT on this. PFSH Surgical History Hx of Achilles tendon repair Hx of foot surgery Social History (Updated 06/04/24 @ 09:32 by MAX Cardozo) Patient Tobacco Use Status: Never used Tobacco Second Hand Smoke Exposure: No Substance Use Type: Marijuana Current occupational status: unemployed Physical Exam Extrem Other: 10-115 degrees motion. Well-healed incision. Minimal effusion. Assessment & Plan Assessment & Plan (1) Rupture of right patellar tendon: Code(s): S86.811A - Strain of other muscle(s) and tendon(s) at lower leg level, right leg, initial encounter Category: Medical Qualifiers: Encounter type: subsequent encounter Qualified Code(s): S86.811D - Strain of other muscle(s) and tendon(s) at lower leg level, right leg, subsequent encounter Plan: Doing much better. Continue therapy. Follow up 6 weeks. Coding Level of Care Code Global (45064) Diagnoses Rupture of right patellar tendon, subsequent encounter S86.811D Encounter type: subsequent encounter
--- OUTSIDE RECORDS SUMMARY | 2024-07-05 12:29 | XMS_ITS | Continuity of Care Document ---
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 Patient consented to video & audio visit Patient was located in the [facility]. Provider was located in the office. No [...] and Address Organization Details Recorded Time Anemia [id number] Completed 201202/03/2014 RECORDED 08/26/19 13 4:30PM BY COOPER ALARCON/DEBRA MCLAUGHLIN Not Available [facility] 4 12:15:45 Esdras myrick [id number] Completed 201102/03/2014 RECORDED 02/24/20 12 1:21PM BY INDERJIT ALARCONATI ON/ADDEN DUM Not Available [facility] 4 12:15:45 Injury of knee 775480117 Completed 201102/03/2014 RECORDED 02/24/20 12 1:21PM BY RIGO LYON I ANNOTATI ON/ADDEN DUM Not Available [facility] 4 12:15:45 Administ ration of bacteria l and viral vaccine Completed 200902/03/2014 RECORDED 12/19/19 10 3:51PM BY DANE FLORIAN MA, OFFICE VISIT Not Available [facility] 4 12:15:45 Joint pain in ankle and foot Completed 201102/03/2014 RECORDED 02/24/20 12 1:21PM BY INDERJIT ALARCONATI ON/ADDEN DUM Not Available [facility] 4 12:15:45 Adult health examinat ion Completed 201202/03/2014 RECORDED 08/26/19 13 4:30PM BY INDERJIT ALARCONATI ON/ADDEN DUM Not Available [facility] 4 12:15:45 Anemia 683055801 Completed 201202/04/2014 RECORDED 08/26/19 13 4:30PM BY INDERJIT ALARCONATI ON/ADDEN DUM Not Available [facility] 4 03:34:20 Impacted cerumen 28160491 Completed 201102/04/2014 RECORDED 02/24/20 12 1:21PM BY INDERJIT ALARCONATI ON/ADDEN DUM Not Available [facility] 4 03:34:20 Injury of knee 120805744 Completed 201102/04/2014 RECORDED 02/24/20 12 1:21PM BY RIGO LYON I ANNOTATI ON/ADDEN DUM Not Available [facility] 4 03:34:20 Administ ration of bacteria l and viral vaccine Completed 200902/04/2014 RECORDED 12/19/19 10 3:51PM BY DANE FLORIAN MA, OFFICE VISIT Not Available [facility] 4 03:34:20 Joint pain in ankle and foot Completed 201102/04/2014 RECORDED 02/24/20 12 1:21PM BY COOPER ALARCON ON/ADDEN DUM Not Available [facility] 4 03:34:20 Adult health examinat ion Completed 201202/04/2014 RECORDED 08/26/19 13 4:30PM BY COOPER ALARCON ON/ADDEN DUM Not Available [facility] 4 03:34:20 Anemia 518134957 Completed 201201/11/2014 RECORDED 08/26/19 13 4:30PM BY COOPER ALARCON ON/ADDEN DUM Not Available [facility] 4 13:47:39 General examinat ion of patient Completed 201202/28/2015 RECORDED 10/09/19 13 10:15AM BY COOPER ALARCON ON/ADDEN DUM Humphrey Easton MD [address], [facility] [place], [address] , [facility] 5 16:03:31 Impacted cerumen 01603040 Completed 201101/11/2014 RECORDED 02/24/20 12 1:21PM BY COOPER ALARCON ON/ADDEN DUM Not Available [facility] 4 13:47:39 Injury of knee 678072981 Completed 201101/11/2014 RECORDED 02/24/20 12 1:21PM BY COOPER ALARCON ON/ADDEN DUM Not Available [facility] 4 13:47:39 Shoulder joint pain 921051834 Active 2013 IMPRESSI ON: HE WAS GIVEN A HANDOUT WITH EXERCISE S HE WILL DO AT HOME. HE WAS ALSO ADVISED ON HOW TO USE ICE AND HEAT DURING THE DAY. Not Available [facility] 3 14:22:13 Administ ration of bacteria l and viral vaccine Completed 200901/11/2014 RECORDED 12/19/19 10 3:51PM BY DANE FLORIAN MA, OFFICE VISIT Not Available [facility] 4 13:47:40 Joint pain in ankle and foot Completed 201101/11/2014 RECORDED 02/24/20 12 1:21PM BY RIGO LYON I, ANNOTATI ON/ADDEN DUM Not Available [facility] 4 13:47:40 Adult health examinat ion Completed 201201/11/2014 RECORDED 08/26/19 13 4:30PM BY RIGO LYON I, ANNOTATI ON/ADDEN DUM Not Available [facility] 4 13:47:40 Sprain of ankle 52279085 Active [address] WILLIAM Concepc[place] Not Available [facility] 3 14:22:13 Swelling of finger joint 451803331 Active Not Available [facility] 3 14:22:13 Seizure disorder 198081651 Active Not Available [facility] 3 14:22:13 Knee pain Active Not Available [facility] 3 14:22:13 Liver enzymes level above referenc e range 558465602 Active 2016 Not Available [facility] 3 14:22:13 Serum creatini ne above referenc e range 045549175 Active 2018 Seen by renal; benign; Humphrey Easton MD [address], [place], [address] , [facility] 9 14:54:43 Right patellar tendon rupture 04103478314 145329 Active 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 Humphrey Easton MD [address] [facility] [address] [facility] [address], [place], [address] , [facility] 4 11:32:18 Traumati c rupture of patellar tendon 871294099 Active 2023 Humphrey Easton MD [address] [facility] [address] [facility] [address], [place], [address] , [facility] 4 09:04:57 Fracture of knee 198370694 Active 2023 Humprhey Easton MD [address] [address], [place], [address] , [facility] 4 09:04:58 Problem Notes None recorded. Procedures Surgical History Date Name Laterality Status Provider Name and Address Organization Details Recorded Time 4 Knee Surgery completed Kelly Ahuja [facility] 05/06/2024 15:07:59 3 Orthopedic Surgery completed Humphrey Easton MD [address], [address], [facility] 02/23/2014 15:07:30 9 Orthopedic Surgery completed Humphrey Easton MD [address], [address], [facility] 02/23/2014 15:07:30 Imaging Results None recorded. Procedure Notes None recorded. Medical Equipment None Reported. Allergies Allergen ID Allergen Name Allergen Category Reaction Reaction Severity Criticality Documentation Date Start Date Code Code System Note Provider Name and Address Organization Details Recorded Time 56921 No known allergy (situatio n) Not available Not available Not available Not available 06/18/2023 91073 [id number] SNOMED [facility] 14:29:41 No known drug allergies Medications [...] Kelly Ahuja MA MA [facility] 05/06/2024 15:04:51 Social History Question Answer Notes LastModified by Organizat ion Details LastModified Time Tobacco Smoking Status Never Smoker Not Available [facility] 05/02/2020 03:36:37 Do You Have An Advance Directive? Yes HCP Information not available 09/18/2020 What Is Your Level Of Alcohol Consumption? Occasional Family Events [id number] Information not available 05/02/2020 Is Blood Transfusion Acceptable In An Emergency? Yes [id number] Information not available 05/02/2020 What Is Your Level Of Caffeine Consumption? Moderate 1 Cup Tea Daily Information not available 11/21/2021 How Much Tobacco Do You Chew? None [id number] Information not available 05/02/2020 Are You Currently Employed? Yes [id number] Information not available 05/02/2020 What Type Of Diet Are You Following? REGULAR [id number] Information not available 05/02/2020 Which Illicit Or Recreational Drugs Have You Used? Marijuana Information not available 05/24/2020 Do You Or Have You Ever Used E-cigarettes Or Vape? 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 No [id number] Information not available 05/02/2020 Seat Belts Used Routinely Yes Information not available 02/28/2015 Are You Sexually Active? Yes [id number] Information not available 05/02/2020 Smoke Alarm In Home Yes Information not available 02/28/2015 At What Age Did You Start Smoking Tobacco? 2 [id number] Information not available 05/30/2020 Are You Passively Exposed To Smoke? No Information not available 02/28/2015 Do You Or Have You Ever Used Smokeless Tobacco? Never Used Smokeless Tobacco [id number] Information not available 05/02/2020 Do You Use Any Illicit Or Recreational Drugs? No Information not available 11/21/2021 Do You Use Sunscreen Routinely? Yes [id number] Information not available 05/02/2020 How Many Years [...] you able to care for yourself? Yes [id number] Information not available 05/02/2020 What is your exercise level? Heavy [id number] Information not available 05/02/2020 Mental Status None [...] Recorded Time Tdap 0 completed Not Available [facility] 01/11/2014 13:24:41 COVID-19, mRNA, LNP-S, PF, 100 mcg/0.5mL dose or 50 mcg/0.25mL dose 1 completed Jacque schuler [facility] 06/18/2023 14:29:57 COVID-19, mRNA, LNP-S, PF, 100 mcg/0.5mL dose or 50 mcg/0.25mL dose 1 completed Jacque schuler [facility] 06/18/2023 14:29:57 Tdap 9 completed Not Available [facility] 07/17/2019 02:21:51 Influenza, split virus, quadrivalent , PF 0 cancelled patient objection BRENDA Morocho [facility] 05/24/2020 15:43:04 Past Encounters Encounter ID Performer Location Encounter Start Date Encounter Closed Date Diagnosis/Indication Diagnosis SNOMED-CT Code Diagnosis ICD10 Code Diagnosis Note [id number] Humphrey Easton MD [facility] [place] [address] [facility] [address] 05/06/2024 14:50:50 05/06/2024 16:39:07 Fracture of knee 875433327 S82.90XA Traumatic rupture of patellar tendon 140606146 S76.111A Followed by ortho s/p surgery. He is on pain meds and will start PT later this month. His recovery is expected to be 3-6 months. He needs assistance to accomplish most of his ADL's specifical ly bathing, dressing, toileting and transferri ng. 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 Health Concerns Section Related Observation LastModified by Organization Detai ls LastModified Time None Recorded Concern Status LastModified by Organization Details LastModified Time None Recorded Payers Encounter Date Sequence Insurance Name Policy Number Policy Friedman Covered Member ID Friedman Member ID Guarantor Name 05/06/2024 1 [facility] NET PLAN (MEDICAID HMO) [id number] Jakub Bowen [id number] Jakub Bowen 05/06/2024 2 [place] [facility] Jakub Bowen [id number] Jakub Bowen Notes Date Note Type Note [...] was having difficulty ambulating so he called [facility] and got a sooner appointment on [...] looking for assistance. Humphrey Easton MD [address] [address], [place], [address], [facility] 05/08/2024 09:09:46
--- OUTSIDE RECORDS SUMMARY | 2024-07-05 12:29 | XMS_ITS | Data Portability ---
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 Patient consented to video & audio visit Patient was located in the [facility]. Provider was located in the office. No other persons participated in the telemedicine visit except for the patient unless otherwise indicated here. {{}} Total time of visit was 20 minutes. [email or web address] Not available 06/19/2022 09:28:23 05/06/2024 05/06/2024 This service was provided using telemedicine. Patient consented to video & audio visit Patient was located in the [facility]. Provider was located in the office. [...] or plasma 2022 023 MICA[facility]A [facility], [address] [facility], [facility], [place], [address], 3 16:20:20 lipid panel, serum 2022 023 [facility], [address], [address], [place], [address], 3 16:20:22 CMP, serum or plasma 2022 023 [facility], [address], [address], [place], [address], 3 16:20:21 CMP, serum or plasma 2023 024 MICAELA [facility], [address], [facility] [address], [place], [address], 4 06:08:08 CBC w/ auto diff 2023 024 MICAELA [facility], [address], [facility] [address], [place], [address], 4 06:08:06 lipid panel, serum 2023 024 MICAELA [facility], [address], [facility] [address], [place], [address], 4 06:08:09 urinalys is, complete 2023 024 MICAELA [facility], [address], [facility] [address], [place], [address], 4 06:08:08 Referral None recorded . Procedures screenin g test of visual acuity, quantita tive, bilatera l (PROC) 2023 024 [email or web address] In-Office Order, Internal Use Only DO Not Attach Compendium DO Not Attach Compendium, Do Not Delete/merge, [id number] 4 12:49:02 Surgeries None recorded . Imaging exercise stress test - Intermit tent chest wall pain and an episode of syncope. R/o ischemia . 2021 023 [email or web address] [facility], [address] [place] [address] Drive, [address], [place], [address], 3 09:27:17 electroc ardiogra m 2023 024 [email or web address] In-Office Order, Internal Use Only DO Not Attach Compendium DO Not Attach Compendium, Do Not Delete/merge, [id number] 12:31:01 audiogra m 2023 024 [email or web address] In-Office Order, Internal Use Only DO Not Attach Compendium DO Not Attach Compendium, Do Not Delete/merge, [id number] 12:48:56 Medication Orders None recorded . Patient TargetsNo targets recorded. Patient Instructions Encounter Date Encounter Id Patient Instructions Last Modified By Organization Details Last Modified Time 11/21/2021 [id number] epilepsy: care instructions [email or web address] Not available 11/21/2021 17:19:24 06/13/2022 [id number] fainting: care instructions [email or web address] Not available 06/19/2022 17:46:04 lightheadedness or faintness: care instructions [email or web address] Not available 06/19/2022 17:46:04 11/26/2022 [id number] epilepsy: care instructions [email or web address] Not available 11/26/2022 13:08:52 03/02/2024 [id number] epilepsy: care instructions [email or web address] Not available 03/02/2024 [...] Available [facility] [address] [place], [address], 11/07/2021 16:18:48 11/08/19 22 11/07/2021 COMPR EHENS BRENDA METAB OLIC PANL glucose 74 mg/dL (70-99 ) Not Available [facility] [address] [place], [address], 11/07/2021 16:18:49 11/08/19 22 11/07/2021 COMPR EHENS BRENDA METAB OLIC PANL BUN 21 mg/dL (6-20) high Not Available [facility] [address] [place], [address], 11/07/2021 16:18:49 11/08/19 22 11/07/2021 COMPR EHENS BRENDA METAB OLIC PANL creatinine 1.4 mg/dL (0.7-1 .2) high Not Available [facility] [address] [place], [address], 11/07/2021 16:18:49 11/08/19 22 11/07/2021 COMPR EHENS BRENDA METAB OLIC PANL sodium 138 mmol/ L (133-1 45) Not Available [facility] [address] [place], [address], 11/07/2021 16:18:49 11/08/19 22 11/07/2021 COMPR EHENS BRENDA METAB OLIC PANL potassium 4.7 mmol/ L (3.6-5 .2) Not Available [facility] [address] [place], [address], 11/07/2021 16:18:49 11/08/19 22 11/07/2021 COMPR EHENS BRENDA METAB OLIC PANL chloride 102 mmol/ L (98-10 7) Not Available [facility] [address] [place], [address], 11/07/2021 16:18:49 11/08/19 22 11/07/2021 COMPR EHENS BRENDA METAB OLIC PANL bicarbonate 27 mmol/ L (22-29 ) Not Available [facility] [address] [place], [address], 11/07/2021 16:18:49 11/08/19 22 11/07/2021 COMPR EHENS BRENDA METAB OLIC PANL anion gap 9 (4-17) Not Available [facility] [address] [place], [address], 11/07/2021 16:18:49 11/08/19 22 11/07/2021 COMPR EHENS BRENDA METAB OLIC PANL albumin 4.5 gm/dL (3.4-4 .8) Not Available [facility] [address] [place], [address], 11/07/2021 16:18:49 11/08/19 22 11/07/2021 COMPR EHENS BRENDA METAB OLIC PANL calcium 9.5 mg/dL (8.6-1 0.5) Not Available [facility] [address] [place], [address], 11/07/2021 16:18:49 11/08/19 22 11/07/2021 COMPR EHENS BRENDA METAB OLIC PANL bilirubin,to riri 0.3 mg/dL (0-1.2 ) Not Available [facility] [address] [place], [address], 11/07/2021 16:18:49 11/08/19 22 11/07/2021 COMPR EHENS BRENDA METAB OLIC PANL total protein 6.9 gm/dL (6.2-8 .2) Not Available [facility] [address] [place], [address], 11/07/2021 16:18:49 11/08/19 22 11/07/2021 COMPR EHENS BRENDA METAB OLIC PANL Ag ratio 1.9 Not Available [facility] [address] [place], [address], 11/07/2021 16:18:49 11/08/19 22 11/07/2021 COMPR EHENS BRENAD METAB OLIC PANL AST 22 U/L (0-40) Not Available [facility] [address] [place], [address], 11/07/2021 16:18:49 11/08/19 22 11/07/2021 COMPR EHENS BRENDA METAB OLIC PANL alk phos 68 U/L (40-12 9) Not Available [facility] [address] [place], [address], 11/07/2021 16:18:49 11/08/19 22 11/07/2021 COMPR EHENS BRENDA METAB OLIC PANL ALT 22 U/L (0-41) Not Available [facility] [address] [place], [address], 11/07/2021 16:18:49 11/08/19 22 11/07/2021 COMPR EHENS [...] Available [facility] [address] [place], [address], 11/07/2021 16:18:49 11/08/19 22 11/07/2021 COMPL ETE BLOOD COUNT WBC 6.0 K/mm3 (4.0-1 1.0) Not Available [facility] [address] [place], [address], 11/07/2021 16:21:49 11/08/19 22 11/07/2021 COMPL ETE BLOOD COUNT RBC 4.56 M/mm3 (4.70- 6.10) low Not Available [facility] [address] [place], [address], 11/07/2021 16:21:49 11/08/19 22 11/07/2021 COMPL ETE BLOOD COUNT HGB 13.7 gm/dL (13.7- 17.1) Not Available [facility] [address] [place], [address], 11/07/2021 16:21:49 11/08/19 22 11/07/2021 COMPL ETE BLOOD COUNT HCT 43.2 % (40.5- 50.0) Not Available [facility] [address] [place], [address], 11/07/2021 16:21:49 11/08/19 22 11/07/2021 COMPL ETE BLOOD COUNT MCV 94.7 fL (80.0- 94.0) high Not Available [facility] [address] [place], [address], 11/07/2021 16:21:49 11/08/19 22 11/07/2021 COMPL ETE BLOOD COUNT MCH 30.0 pg (27.0- 34.0) Not Available [facility] [address] [place], [address], 11/07/2021 16:21:49 11/08/19 22 11/07/2021 COMPL ETE BLOOD COUNT MCHC 31.7 g/dL (33.0- 37.0) low Not Available [facility] [address], [address], 11/07/2021 16:21:49 11/08/19 22 11/07/2021 COMPL ETE BLOOD COUNT plt 253 K/mm3 (150-4 60) Not Available [facility] [address] [place], [address], 11/07/2021 16:21:49 11/08/19 22 11/07/2021 COMPL ETE BLOOD COUNT RDW-SD 42.5 fL (<47.0 ) Not Available [facility] [address] [place], [address], 11/07/2021 16:21:49 11/08/19 22 11/07/2021 COMPL ETE BLOOD COUNT MPV 9.7 fL (9.4-1 2.4) Not Available [facility] [address] [place], [address], 11/07/2021 16:21:49 11/08/19 22 11/07/2021 COMPL ETE BLOOD COUNT automated NRBC 0.0 #/100 _WBC' s Not Available [facility] [address] [place], [address], 11/07/2021 16:21:49 11/08/19 22 11/07/2021 COMPL ETE BLOOD COUNT abs. NRBC 0.0 K/mm3 Not Available [facility] [address] [place], [address], 11/07/2021 16:21:49 12/21/19 23 12/20/2022 CARBA MAZEP [...] Available [facility] [address] [place], [address], 12/20/2022 16:20:20 12/21/19 23 12/20/2022 COMPR EHENS BRENDA METAB OLIC PANL glucose 96 mg/dL (70-99 ) Not Available [facility] [address] [place], [address], 12/20/2022 16:20:21 12/21/19 23 12/20/2022 COMPR EHENS BRENDA METAB OLIC PANL BUN 15 mg/dL (6-20) Not Available [facility] [address] [place], [address], 12/20/2022 16:20:21 12/21/19 23 12/20/2022 COMPR EHENS BRENDA METAB OLIC PANL creatinine 1.4 mg/dL (0.7-1 .2) high Not Available [facility] [address] [place], [address], 12/20/2022 16:20:21 12/21/19 23 12/20/2022 COMPR EHENS BRENDA METAB OLIC PANL sodium 138 mmol/ L (133-1 45) Not Available [facility] [address] [place], [address], 12/20/2022 16:20:21 12/21/19 23 12/20/2022 COMPR EHENS BRENDA METAB OLIC PANL potassium 4.2 mmol/ L (3.6-5 .2) Not Available [facility] [address] [place], [address], 12/20/2022 16:20:21 12/21/19 23 12/20/2022 COMPR EHENS BRENDA METAB OLIC PANL chloride 101 mmol/ L (98-10 7) Not Available [facility] [address], [address], 12/20/2022 16:20:21 12/21/19 23 12/20/2022 COMPR EHENS BRENDA METAB OLIC PANL bicarbonate 27 mmol/ L (22-29 ) Not Available [facility] [address], [address], 12/20/2022 16:20:21 12/21/19 23 12/20/2022 COMPR EHENS BRENDA METAB OLIC PANL anion gap 10 (4-17) Not Available [facility] [address] [place], [address], 12/20/2022 16:20:21 12/21/19 23 12/20/2022 COMPR EHENS BRENDA METAB OLIC PANL albumin 4.6 gm/dL (3.4-4 .8) Not Available [facility] [address] [place], [address], 12/20/2022 16:20:21 12/21/19 23 12/20/2022 COMPR EHENS BRENDA METAB OLIC PANL calcium 9.4 mg/dL (8.6-1 0.5) Not Available [facility] [address] [place], [address], 12/20/2022 16:20:21 12/21/19 23 12/20/2022 COMPR EHENS BRENDA METAB OLIC PANL bilirubin,to riri 0.3 mg/dL (0-1.2 ) Not Available [facility] [address] [place], [address], 12/20/2022 16:20:21 12/21/19 23 12/20/2022 COMPR EHENS BRENDA METAB OLIC PANL total protein 6.9 gm/dL (6.2-8 .2) Not Available [facility] [address] [place], [address], 12/20/2022 16:20:21 12/21/19 23 12/20/2022 COMPR EHENS BRENDA METAB OLIC PANL Ag ratio 2.0 Not Available [facility] [address] [place], [address], 12/20/2022 16:20:21 12/21/19 23 12/20/2022 COMPR EHENS BRENDA METAB OLIC PANL AST 57 U/L (0-40) high Not Available [facility] [address] [place], [address], 12/20/2022 16:20:21 12/21/19 23 12/20/2022 COMPR EHENS BRENDA METAB OLIC PANL alk phos 68 U/L (40-12 9) Not Available [facility] [address] [place], [address], 12/20/2022 16:20:21 12/21/19 23 12/20/2022 COMPR EHENS BRENDA METAB OLIC PANL ALT 32 U/L (0-41) Not Available [facility] [address] [place], [address], 12/20/2022 16:20:21 12/21/19 23 12/20/2022 COMPR EHENS [...] Available [facility] [address] [place], [address], 12/20/2022 16:20:21 12/21/19 23 12/20/2022 LIPID PANEL cholesterol, total 236 mg/dL (<200) high Not Available [facility] [address] [place], [address], 12/20/2022 16:20:22 12/21/19 23 12/20/2022 LIPID PANEL triglyceride 70 mg/dL (<150) Not Available [facility] [address] [place], [address], 12/20/2022 16:20:22 12/21/19 23 12/20/2022 LIPID PANEL HDL chol 100 mg/dL (>39) Not Available [facility] [address] [place], [address], 12/20/2022 16:20:22 12/21/19 23 12/20/2022 LIPID PANEL LDL cholesterol, calculated 122 mg/dL (0-130 ) Not Available [facility] [address] [place], [address], 12/20/2022 16:20:22 12/21/19 23 12/20/2022 LIPID PANEL non HDL cholesterol (calc) 136 mg/dL (<160) Not Available [facility] [address] [place], [address], 12/20/2022 16:20:22 03/02/20 24 03/02/2024 scree fabio test of visua l acuit y, quant itati ve, bilat eral (PROC ) L EYE UNCORRECTED 20/30 Not Available In-O ffice Order Internal Use Only DO Not Attach Compendium DO Not Attach Compendium, Do Not Delete/merge, [id number] 03/02/2024 12:00:29 03/02/20 24 03/02/2024 scree fabio test of visua l acuit y, quant itati ve, bilat eral (PROC ) R EYE UNCORRECTED 20/40 Not Available In-O ffice Order Internal Use Only DO Not Attach Compendium DO Not Attach Compendium, Do Not Delete/merge, [id number] 03/02/2024 12:00:29 03/02/20 24 03/02/2024 scree fabio test of visua l acuit y, quant itati ve, bilat eral (PROC ) KAROL UNCORRECTED 20/25 Not Available In-O ffice Order Internal Use Only DO Not Attach Compendium DO Not Attach Compendium, Do Not Delete/merge, [id number] 03/02/2024 12:00:29 03/05/20 24 03/06/2024 CBC WITH DIFFE RENTI AL/PL ATELE T WBC 6.0 x10e3 /uL 3.4-10 .8 normal Not Available [facility] ([facility]) [address] [place], [address], 03/06/2024 06:08:06 03/05/20 24 03/06/2024 CBC WITH DIFFE RENTI AL/PL ATELE T RBC 4.95 x10e6 /uL 4.14-5 .80 normal Not Available [facility] ([facility]) [address] [facility], [place], [address], 03/06/2024 06:08:06 03/05/20 24 03/06/2024 CBC WITH DIFFE RENTI AL/PL ATELE T hemoglobin 14.7 g/dL 13.0-1 7.7 normal Not Available [facility] ([facility]) [address] [place], [address], 03/06/2024 06:08:06 03/05/20 24 03/06/2024 CBC WITH DIFFE RENTI AL/PL ATELE T hematocrit 44.6 % 37.5-5 1.0 normal Not Available [facility] ([facility]) [address] [facility], [place], [address], 03/06/2024 06:08:06 03/05/20 24 03/06/2024 CBC WITH DIFFE RENTI AL/PL ATELE T MCV 90 fL 79-97 normal Not Available [facility] ([facility]) [address] [facility], [place], [address], 03/06/2024 06:08:06 03/05/20 24 03/06/2024 CBC WITH DIFFE RENTI AL/PL ATELE T MCH 29.7 pg 26.6-3 3.0 normal Not Available [facility] ([facility]) [address] [place], [address], 03/06/2024 06:08:06 03/05/20 24 03/06/2024 CBC WITH DIFFE RENTI AL/PL ATELE T MCHC 33.0 g/dL 31.5-3 5.7 normal Not Available [facility] ([facility]) [address] [place], [address], 03/06/2024 06:08:06 03/05/20 24 03/06/2024 CBC WITH DIFFE RENTI AL/PL ATELE T RDW 12.6 % 11.6-1 5.4 Not Available [facility] ([facility]) [address] [place], [address], 03/06/2024 06:08:06 03/05/20 24 03/06/2024 CBC WITH DIFFE RENTI AL/PL ATELE T platelets 266 x10e3 /uL 150-45 0 normal Not Available [facility] ([facility]) [address] [facility], [place], [address], 03/06/2024 06:08:06 03/05/20 24 03/06/2024 CBC WITH DIFFE RENTI AL/PL ATELE T neutrophils 42 % not estab. normal Not Available [facility] ([facility]) [address] [facility], [place], [address], 03/06/2024 06:08:06 03/05/20 24 03/06/2024 CBC WITH DIFFE RENTI AL/PL ATELE T lymphs 49 % not estab. normal Not Available [facility] ([facility]) [address] [facility], [place], [address], 03/06/2024 06:08:06 03/05/20 24 03/06/2024 CBC WITH DIFFE RENTI AL/PL ATELE T monocytes 5 % not estab. normal Not Available [facility] ([facility]) [address] [facility], [place], [address], 03/06/2024 06:08:06 03/05/20 24 03/06/2024 CBC WITH DIFFE RENTI AL/PL ATELE T eos 3 % not estab. normal Not Available [facility] ([facility]) [address] [facility], [place], [address], 03/06/2024 06:08:06 03/05/20 24 03/06/2024 CBC WITH DIFFE RENTI AL/PL ATELE T basos 1 % not estab. normal Not Available [facility] ([facility]) [address] [facility], [place], [address], 03/06/2024 06:08:06 03/05/20 24 03/06/2024 CBC WITH DIFFE RENTI AL/PL ATELE T immature cells BACK MAKER Not Available [facility] ([facility]) [address] [facility], [place], [address], 03/06/2024 06:08:06 03/05/20 24 03/06/2024 CBC WITH DIFFE RENTI AL/PL ATELE T neutrophils (absolute) 2.5 x10e3 /uL 1.4-7. 0 normal Not Available [facility] ([facility]) [address] [facility], [place], [address], 03/06/2024 06:08:06 03/05/20 24 03/06/2024 CBC WITH DIFFE RENTI AL/PL ATELE T lymphs (absolute) 3.0 x10e3 /uL 0.7-3. 1 normal Not Available [facility] ([facility]) [address] [facility], [place], [address], 03/06/2024 06:08:06 03/05/20 24 03/06/2024 CBC WITH DIFFE RENTI AL/PL ATELE T monocytes(ab solute) 0.3 x10e3 /uL 0.1-0. 9 normal Not Available [facility] ([facility]) [address] [facility], [place], [address], 03/06/2024 06:08:06 03/05/20 24 03/06/2024 CBC WITH DIFFE RENTI AL/PL ATELE T eos (absolute) 0.2 x10e3 /uL 0.0-0. 4 normal Not Available [facility] ([facility]) [address] [facility], [place], [address], 03/06/2024 06:08:06 03/05/20 24 03/06/2024 CBC WITH DIFFE RENTI AL/PL ATELE T baso (absolute) 0.1 x10e3 /uL 0.0-0. 2 normal Not Available [facility] ([facility]) [address] [place], [address], 03/06/2024 06:08:06 03/05/20 24 03/06/2024 CBC WITH DIFFE RENTI AL/PL ATELE T immature granulocytes 0 % not estab. Not Available [facility] ([facility]) [address], [place], [address], 03/06/2024 06:08:06 03/05/20 24 03/06/2024 CBC WITH DIFFE RENTI AL/PL ATELE T immature grans (abs) 0.0 x10e3 /uL 0.0-0. 1 Not Available [facility] ([facility]) [address], [place], [address], 03/06/2024 06:08:06 03/05/20 24 03/06/2024 CBC WITH DIFFE RENTI AL/PL ATELE T NRBC BACK MAKER Not Available [facility] ([facility]) [address], [place], [address], 03/06/2024 06:08:06 03/05/20 24 03/06/2024 CBC WITH DIFFE RENTI AL/PL ATELE T hematology comments: BACK MAKER Not Available [facility] ([facility]) [address] [facility], [place], [address], 03/06/2024 06:08:06 03/05/20 24 03/06/2024 COMP. METAB OLIC PANEL (14) glucose 100 mg/dL 70-99 above high normal Not Available [facility] ([facility]) [address] [facility], [place], [address], 03/06/2024 06:08:08 03/05/20 24 03/06/2024 COMP. METAB OLIC PANEL (14) BUN 15 mg/dL 6-24 normal Not Available [facility] ([facility]) [address] [facility], [place], [address], 03/06/2024 06:08:08 03/05/20 24 03/06/2024 COMP. METAB OLIC PANEL (14) creatinine 1.40 mg/dL 0.76-1 .27 above high normal Not Available [facility] ([facility]) [address] [facility], [place], [address], 03/06/2024 06:08:08 03/05/20 24 03/06/2024 COMP. METAB OLIC PANEL (14) eGFR 65 mL/mi n/1.7 3 >59 normal Not Available [facility] ([facility]) [address] [facility], [place], [address], 03/06/2024 06:08:08 03/05/20 24 03/06/2024 COMP. METAB OLIC PANEL (14) BUN/creatini ne ratio 11 9-20 normal Not Available [facility] ([facility]) [address] [facility], [place], [address], 03/06/2024 06:08:08 03/05/20 24 03/06/2024 COMP. METAB OLIC PANEL (14) sodium 139 mmol/ L 134-14 4 normal Not Available [facility] ([facility]) [address] [facility], [place], [address], 03/06/2024 06:08:08 03/05/20 24 03/06/2024 COMP. METAB OLIC PANEL (14) potassium 5.3 mmol/ L 3.5-5. 2 above high normal Not Available [facility] ([facility]) [address] [facility], [place], [address], 03/06/2024 06:08:08 03/05/20 24 03/06/2024 COMP. METAB OLIC PANEL (14) chloride 100 mmol/ L 96-106 normal Not Available [facility] ([facility]) [address] [facility], [place], [address], 03/06/2024 06:08:08 03/05/20 24 03/06/2024 COMP. METAB OLIC PANEL (14) carbon dioxide, total 26 mmol/ L 20-29 normal Not Available [facility] ([facility]) [address] [facility], [place], [address], 03/06/2024 06:08:08 03/05/20 24 03/06/2024 COMP. METAB OLIC PANEL (14) calcium 9.7 mg/dL 8.7-10 .2 normal Not Available [facility] ([facility]) [address] [place], [address], 03/06/2024 06:08:08 03/05/20 24 03/06/2024 COMP. METAB OLIC PANEL (14) protein, total 7.0 g/dL 6.0-8. 5 normal Not Available [facility] ([facility]) [address], [place], [address], 03/06/2024 06:08:08 03/05/20 24 03/06/2024 COMP. METAB OLIC PANEL (14) albumin 4.5 g/dL 4.1-5. 1 normal Not Available [facility] ([facility]) [address], [place], [address], 03/06/2024 06:08:08 03/05/20 24 03/06/2024 COMP. METAB OLIC PANEL (14) globulin, total 2.5 g/dL 1.5-4. 5 Not Available [facility] ([facility]) [address] [place], [address], 03/06/2024 06:08:08 03/05/20 24 03/06/2024 COMP. METAB OLIC PANEL (14) bilirubin, total 0.3 mg/dL 0.0-1. 2 normal Not Available [facility] ([facility]) [address], [place], [address], 03/06/2024 06:08:08 03/05/20 24 03/06/2024 COMP. METAB OLIC PANEL (14) alkaline phosphatase 73 IU/L 44-121 normal Not Available [facility] ([facility]) [address], [place], [address], 03/06/2024 06:08:08 03/05/20 24 03/06/2024 COMP. METAB OLIC PANEL (14) AST (SGOT) 27 IU/L 0-40 normal Not Available [facility] ([facility]) [address] [facility] [place], [address], 03/06/2024 06:08:08 03/05/20 24 03/06/2024 COMP. METAB OLIC PANEL (14) ALT (SGPT) 25 IU/L 0-44 normal Not Available [facility] ([facility]) [address] [facility] [place], [address], 03/06/2024 06:08:08 03/05/20 24 03/06/2024 URINA LYSIS , COMPL ETE specific gravity 1.014 1.005- 1.030 normal Not Available [facility] ([facility]) [address] [place], [address], 03/06/2024 06:08:08 03/05/20 24 03/06/2024 URINA LYSIS , COMPL ETE pH 7.5 5.0-7. 5 normal Not Available [facility] ([facility]) [address] [facility] [place], [address], 03/06/2024 06:08:08 03/05/20 24 03/06/2024 URINA LYSIS , COMPL ETE urine-color Yellow yellow Not Available [facility] ([facility]) [address] [facility] [place], [address], 03/06/2024 06:08:08 03/05/2003/06/2024 URINA LYSIS , COMPL ETE appearance Clear clear Not Available [facility] ([facility]) [address] [place], [address], 03/06/2024 06:08:08 03/05/20 24 03/06/2024 URINA LYSIS , COMPL ETE WBC esterase Negati ve negati ve Not Available [facility] ([facility]) [address] [place], [address], 03/06/2024 06:08:08 03/05/20 24 03/06/2024 URINA LYSIS , COMPL ETE protein Negati ve negati ve/tra ce Not Available [facility] ([facility]) [address] [place], [address], 03/06/2024 06:08:08 03/05/20 24 03/06/2024 URINA LYSIS , COMPL ETE glucose Negati ve negati ve Not Available [facility] ([facility]) [address] [place], [address], 03/06/2024 06:08:08 03/05/20 24 03/06/2024 URINA LYSIS , COMPL ETE ketones Negati ve negati ve Not Available [facility] ([facility]) [address] [place], [address], 03/06/2024 06:08:08 03/05/20 24 03/06/2024 URINA LYSIS , COMPL ETE occult blood Negati ve negati ve Not Available [facility] ([facility]) [address] [place], [address], 03/06/2024 06:08:08 03/05/20 24 03/06/2024 URINA LYSIS , COMPL ETE bilirubin Negati ve negati ve Not Available [facility] ([facility]) [address] [place], [address], 03/06/2024 06:08:08 03/05/20 24 03/06/2024 URINA LYSIS , COMPL ETE urobilinogen ,semi-qn 0.2 mg/dL 0.2-1. 0 normal Not Available [facility] ([facility]) [address] [place], [address], 03/06/2024 06:08:08 03/05/20 24 03/06/2024 URINA LYSIS , COMPL ETE nitrite, urine Negati ve negati ve Not Available [facility] ([facility]) [address], [place], [address], 03/06/2024 06:08:08 03/05/20 24 03/06/2024 URINA LYSIS , COMPL ETE microscopic examination Commen t Micro scopi c follo ws if indic ated. Not Available [facility] ([facility]) [address] [facility], [place], [address], 03/06/2024 06:08:08 03/05/20 24 03/06/2024 URINA LYSIS , COMPL ETE microscopic examination See below: Micro scopi c was indic ated and was perfo rmed. Not Available [facility] ([facility]) [address] [facility], [place], [address], 03/06/2024 06:08:08 03/05/20 24 03/06/2024 URINA LYSIS , COMPL ETE WBC None seen /hpf 0 - 5 Not Available [facility] ([facility]) [address] [facility], [place], [address], 03/06/2024 06:08:08 03/05/20 24 03/06/2024 URINA LYSIS , COMPL ETE RBC None seen /hpf 0 - 2 Not Available [facility] ([facility]) [address] [facility], [place], [address], 03/06/2024 06:08:08 03/05/20 24 03/06/2024 URINA LYSIS , COMPL ETE epithelial cells (non renal) None seen /hpf 0 - 10 Not Available [facility] ([facility]) [address] [facility], [place], [address], 03/06/2024 06:08:08 03/05/20 24 03/06/2024 URINA LYSIS , COMPL ETE epithelial cells (renal) BACK MAKER Not Available [facility] ([facility]) [address] [facility], [place], [address], 03/06/2024 06:08:08 03/05/20 24 03/06/2024 URINA LYSIS , COMPL ETE casts None seen /lpf none seen Not Available [facility] ([facility]) [address], [place], [address], 03/06/2024 06:08:08 03/05/20 24 03/06/2024 URINA LYSIS , COMPL ETE cast type BACK MAKER Not Available [facility] ([facility]) [address], [place], [address], 03/06/2024 06:08:08 03/05/20 24 03/06/2024 URINA LYSIS , COMPL ETE crystals BACK MAKER Not Available [facility] ([facility]) [address], [place], [address], 03/06/2024 06:08:08 03/05/20 24 03/06/2024 URINA LYSIS , COMPL ETE crystal type BACK MAKER Not Available [facility] ([facility]) [address], [place], [address], 03/06/2024 06:08:08 03/05/20 24 03/06/2024 URINA LYSIS , COMPL ETE mucus threads BACK MAKER Not Available [facility] ([facility]) [address], [place], [address], 03/06/2024 06:08:08 03/05/20 24 03/06/2024 URINA LYSIS , COMPL ETE bacteria None seen none seen/f ew Not Available [facility] ([facility]) [address], [place], [address], 03/06/2024 06:08:08 03/05/20 24 03/06/2024 URINA LYSIS , COMPL ETE 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 Not Available [facility] ([facility]) [address], [place], [address], 03/06/2024 06:08:08 03/05/20 24 03/06/2024 URINA LYSIS , COMPL ETE trichomonas BACK MAKER Not Available [facility] ([facility]) [address] [facility] [place], [address], 03/06/2024 06:08:08 03/05/20 24 03/06/2024 URINA LYSIS , COMPL ETE comment BACK MAKER Not Available [facility] ([facility]) [address] [place], [address], 03/06/2024 06:08:08 03/05/20 24 03/06/2024 LIPID PANEL cholesterol, total 259 mg/dL 100-19 9 above high normal Not Available [facility] ([facility]) [address] [place], [address], 03/06/2024 06:08:09 03/05/20 24 03/06/2024 LIPID PANEL triglyceride s 109 mg/dL 0-149 normal Not Available [facility] ([facility]) [address] [place], [address], 03/06/2024 06:08:09 03/05/20 24 03/06/2024 LIPID PANEL HDL cholesterol 97 mg/dL >39 normal Not Available [facility] ([facility]) [address] [place], [address], 03/06/2024 06:08:09 03/05/20 24 03/06/2024 LIPID PANEL VLDL cholesterol jaylen 18 mg/dL 5-40 Not Available [facility] ([facility]) [address] [place], [address], 03/06/2024 06:08:09 03/05/20 24 03/06/2024 LIPID PANEL LDL chol calc ([facility]) 144 mg/dL 0-99 above high normal Not Available [facility] ([facility]) [address] [place], [address], 03/06/2024 06:08:09 03/05/20 24 03/06/2024 LIPID PANEL LDL calc comment: BACK MAKER Not Available [facility] ([facility]) [address] [facility], [place], [address], 03/06/2024 06:08:09 11/07/19 22 11/07/2021 elect rocar diogr am No observ ation record ed. [email or web address] In-Office Order Internal Use Only DO Not Attach Compendium DO Not Attach Compendium, Do Not Delete/merge, [id number] 11/07/2021 11:52:03 11/07/19 22 elect rocar diogr am No observ ation record ed. [email or web address] In-Office Order Internal Use Only DO Not Attach Compendium DO Not Attach Compendium, Do Not Delete/merge, [id number] 11/06/2021 20:12:00 11/09/19 22 US, echoc ardio gram No observ ation record ed. [facility] [address], [address], 11/08/2021 16:52:09 12/22/19 22 12/12/2021 US, echoc ardio gram No observ ation record ed. [facility] [address] [facility], [place], [address], 12/22/2021 11:47:38 09/04/19 23 09/02/2022 exerc ise stres s test No observ ation record ed. [facility] Diagnostic Testing [address] [place], [address], 09/11/2022 18:58:21 09/07/19 23 09/02/2022 imagi ng/di agnos tic resul t No observ ation record ed. [facility] Diagnostic Testing [address] [place], [address], 09/11/2022 19:00:30 03/02/20 24 03/02/2024 elect rocar diogr am No observ ation record ed. [email or web address] In-Office Order Internal Use Only DO Not Attach Compendium DO Not Attach Compendium, Do Not Delete/merge, [id number] 03/02/2024 12:13:17 03/02/20 24 elect kellie see am No observ ation record ed. [email or web address] In-Office Order Internal Use Only DO Not Attach Compendium DO Not Attach Compendium, Do Not Delete/merge, [id number] 03/02/2024 12:13:07 03/02/20 24 03/02/2024 audio gram No observ ation record ed. [email or web address] In-Office Order Internal Use Only DO Not Attach Compendium DO Not Attach Compendium, Do Not Delete/merge, [id number] 03/02/2024 13:42:23 Result Notes None recorded. Problems Name Problem SNOMED Code Status Onset Date Resolution Date Notes Provider Name and Address Organization Details Recorded Time Anemia 714806336 Completed 201202/03/2014 RECORDED 08/26/19 13 4:30PM BY COOPER ALARCON ON/ADDEN DUM Not Available [facility] 4 12:15:45 Impacted cerumen 88685313 Completed 201102/03/2014 RECORDED 02/24/20 12 1:21PM BY COOPER ALARCON ON/ADDEN DUM Not Available [facility] 4 12:15:45 Injury of knee 534159229 Completed 201102/03/2014 RECORDED 02/24/20 12 1:21PM BY COOPER ALARCON ON/ADDEN DUM Not Available [facility] 4 12:15:45 Administ ration of bacteria l and viral vaccine Completed 200902/03/2014 RECORDED 12/19/19 10 3:51PM BY DANE FLORIAN MA, OFFICE VISIT Not Available [facility] 4 12:15:45 Joint pain in ankle and foot Completed 201102/03/2014 RECORDED 02/24/20 12 1:21PM BY COOPER ALARCON ON/ADDEN DUM Not Available [facility] 4 12:15:45 Adult health examinat ion Completed 201202/03/2014 RECORDED 08/26/19 13 4:30PM BY INDERJIT ALARCONATI ON/ADDEN DUM Not Available [facility] 4 12:15:45 Anemia 542867355 Completed 201202/04/2014 RECORDED 08/26/19 13 4:30PM BY INDERJIT ALARCONATI ON/ADDEN DUM Not Available [facility] 4 03:34:20 Impacted ramez 07091051 Completed 201102/04/2014 RECORDED 02/24/20 12 1:21PM BY INDERJIT ALARCONATI ON/ADDEN DUM Not Available [facility] 4 03:34:20 Injury of knee 339091823 Completed 201102/04/2014 RECORDED 02/24/20 12 1:21PM BY INDERJIT ALARCONATI ON/ADDEN DUM Not Available [facility] 4 03:34:20 Administ ration of bacteria l and viral vaccine Completed 200902/04/2014 RECORDED 12/19/19 10 3:51PM BY DANE FLORIAN MA, OFFICE VISIT Not Available [facility] 4 03:34:20 Joint pain in ankle and foot Completed 201102/04/2014 RECORDED 02/24/20 12 1:21PM BY COOPER ALARCON ON/ADDEN DUM Not Available [facility] 4 03:34:20 Adult health examinat ion Completed 201202/04/2014 RECORDED 08/26/19 13 4:30PM BY INDERJIT ALARCONATI ON/ADDEN DUM Not Available [facility] 4 03:34:20 Anemia 769608817 Completed 201201/11/2014 RECORDED 08/26/19 13 4:30PM BY INDERJIT ALARCONATI ON/ADDEN DUM Not Available [facility] 4 13:47:39 General examinat ion of patient Completed 201202/28/2015 RECORDED 10/09/19 13 10:15AM BY COOPER ALARCON ON/ADDEN DUM Humphrey Easton MD [address] [facility] [address], [place], [address] , [facility] 5 16:03:31 Esdras myrick 90986200 Completed 201101/11/2014 RECORDED 02/24/20 12 1:21PM BY COOPER ALARCON ON/ADDEN DUM Not Available [facility] 4 13:47:39 Injury of knee 760822280 Completed 201101/11/2014 RECORDED 02/24/20 12 1:21PM BY COOPER ALARCON ON/ADDEN DUM [facility] Available [facility] 4 13:47:39 Shoulder joint pain 808100729 Active 2013 IMPRESSI ON: HE WAS GIVEN A HANDOUT WITH EXERCISE S HE WILL DO AT HOME. HE WAS ALSO ADVISED ON HOW TO USE ICE AND HEAT DURING THE DAY. Not Available [facility] 3 14:22:13 Administ ration of bacteria l and viral vaccine Completed 200901/11/2014 RECORDED 12/19/19 10 3:51PM BY DANE FLORIAN MA, OFFICE VISIT Not Available [facility] 4 13:47:40 Joint pain in ankle and foot Completed 201101/11/2014 RECORDED 02/24/20 12 1:21PM BY COOPER ALARCON ON/ADDEN DUM [facility] Available [facility] 4 13:47:40 Adult health examinat ion Completed 201201/11/2014 RECORDED 08/26/19 13 4:30PM BY COOPER ALARCON ON/ADDEN DUM [facility] Available [facility] 4 13:47:40 Sprain of ankle 13421620 Active [address] WILLIAM [place] Not Available [facility] 3 14:22:13 Swelling of finger joint 628347298 Active Not Available [facility] 3 14:22:13 Seizure disorder 158836290 Active Not Available [facility] 3 14:22:13 Knee pain Active Not Available [facility] 3 14:22:13 Liver enzymes level above referenc e range 235456951 Active 2016 Not Available [facility] 3 14:22:13 Serum creatini ne above referenc e range 398288533 Active 2018 Seen by renal; benign; Humphrey Easton MD [address] [address], [place], [address] , [facility] 9 14:54:43 Right patellar tendon rupture 22943847837 196704 Active 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 Humphrey Easton MD [address] [address], [place], [address] , [facility] 4 11:32:18 Traumati c rupture of patellar tendon 749994625 Active 2023 Humphrey Easton MD [address] [address], [place], [address] , [facility] 4 09:04:57 Fracture of knee 911518409 Active 2023 Humphrey Easton MD [address] [address], [place], [address] , [facility] 4 09:04:58 Problem Notes None recorded. Procedures Surgical History Date Name Laterality Status Provider Name and Address Organization Details Recorded Time 4 Knee Surgery completed Kelly Ahuja MA [facility] 05/06/2024 15:07:59 3 Orthopedic Surgery completed Humphrey Easton MD [address] [address], [place], [address], [facility] 02/23/2014 15:07:30 9 Orthopedic Surgery completed Humphrey Easton MD [address] [address], [place], [address], [facility] 02/23/2014 15:07:30 Imaging Results Imaging Date Name Status LastModified by Organization Details LastModified Time 11/07/2021 electrocardiogram completed [email or web address] In-Off ice Order Internal Use Only DO Not Attach Compendium DO Not Attach Compendium, Do Not Delete/merge, [id number] 11/07/2021 11:52:03 11/06/2021 electrocardiogram completed [email or web address] In-Off ice Order Internal Use Only DO Not Attach Compendium DO Not Attach Compendium, Do Not Delete/merge, [id number] 11/06/2021 20:12:00 11/08/2021 US, echocardiogram completed [facility] [address], [place], [address], 11/08/2021 16:52:09 12/12/2021 US, echocardiogram completed [facility] [address], [place], [address], 12/22/2021 11:47:38 09/02/2022 exercise stress test completed [facility] Diagnostic Testing [address], [place], [address], 09/11/2022 18:58:21 09/02/2022 imaging/diagnostic result completed [facility] Diagnostic Testing [address], [place], [address], 09/11/2022 19:00:30 03/02/2024 electrocardiogram completed [email or web address] In-Off ice Order Internal Use Only DO Not Attach Compendium DO Not Attach Compendium, Do Not Delete/merge, [id number] 03/02/2024 12:13:17 03/02/2024 electrocardiogram completed [email or web address] In-Off ice Order Internal Use Only DO Not Attach Compendium DO Not Attach Compendium, Do Not Delete/merge, [id number] 03/02/2024 12:13:07 03/02/2024 audiogram completed [email or web address] In-Office Ord er Internal Use Only DO Not Attach Compendium DO Not Attach Compendium, Do Not Delete/merge, [id number] 03/02/2024 13:42:23 Procedure Notes None recorded. Medical Equipment None Reported. Allergies Allergen ID Allergen Name Allergen Category Reaction Reaction Severity Criticality Documentation Date Start Date Code Code System Note Provider Name and Address Organization Details Recorded Time 66019 No known allergy (situatio n) Not available Not available Not available Not available 06/18/2023 25571 6003 SNOMED Jacque Patten ganga [facility] 3 14:29:41 No known drug allergies Medications [...] Updated DateTime 2 180.34 cm 25.3 kg/m2 81351.6 2 g 74 /min 99 % 99 % 98.24 [degF] 116 mm[Hg] 75 mm[Hg] Nicky Bonds MA [facility] 2 14:20:29 Date Recorded Body height Provider Name an d Address Organization Details Last Updated DateTime 06/13/2022 180.34 cm Nicky Bonds MA [facility] 06/13/2022 15:00:21 Date Recorded Body height Body mass index (BMI) Body weight Heart rate Oxygen saturation Oxygen saturation in Arterial blood by Pulse oximetry Body temperature Systolic blood pressure Diastolic blood pressure Provider Name and Address Organization Details Last Updated DateTime 3 180.34 cm 24.8 kg/m2 29955.4 4 g 75 /min 97 % 97 % 97.9 [degF] 116 mm[Hg] 63 mm[Hg] Tessa Matias MA [facility] 3 12:43:19 Date Recorded Body height Body mass index (BMI) Body weight Heart rate Oxygen saturation Oxygen saturation in Arterial blood by Pulse oximetry Body temperature Systolic blood pressure Diastolic blood pressure Provider Name and Address Organization Details Last Updated DateTime 4 180.34 cm 24.3 kg/m2 67331.0 7 g 70 /min 99 % 99 % 98 [degF] 133 mm[Hg] 78 mm[Hg] Kelly Ahuja MA [facility] 4 11:12:48 Date Recorded Body height Provider Name an d Address Organization Details Last Updated DateTime 05/06/2024 180.34 cm Kelly Ahuja MA [facility] 05/06/2024 15:04:51 Social History Question Answer Notes LastModified by Organizat ion Details LastModified Time Tobacco Smoking Status Never Smoker Not Available [facility] 05/02/2020 03:36:37 Do You Have An Advance Directive? Yes [facility] Information not available 09/18/2020 What Is Your Level Of Alcohol Consumption? Occasional Family Events [id number] Information not available 05/02/2020 Is Blood Transfusion Acceptable In An Emergency? Yes [id number] Information not available 05/02/2020 What Is Your Level Of Caffeine Consumption? Moderate 1 Cup Tea Daily Information not available 11/21/2021 How Much Tobacco Do You Chew? None [id number] Information not available 05/02/2020 Are You Currently Employed? Yes [id number] Information not available 05/02/2020 What Type Of Diet Are You Following? REGULAR [id number] Information not available 05/02/2020 Which Illicit Or Recreational Drugs Have You Used? Marijuana Information not available 05/24/2020 Do You Or Have You Ever Used E-cigarettes Or Vape? 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 [email or web address] Information not available 03/02/2024 Live Alone Or With Others? With Others With His Girfriend Since 2021; Has 2 Children From A Previous Relationship And They Stay With Him Regularly. [email or web address] Information not available 03/02/2024 Do You Take Precautions To Prevent Distracted Driving? Yes [employer] Information not available 02/28/2015 How Often Do You Need To Have Someone Help You When You Read Instructions, Pamphlets, Or Other Written Material From Your Doctor Or Pharmacy? Sometimes [employer] Information not available 02/28/2015 Have You Served In The ? No [employer] Information not available 05/07/2017 Have You Or [...] Born 2006 And Son Born In 2010 [id number] Information not available 05/02/2020 Do You Use Protection During Sex? No [id number] Information not available 05/02/2020 Seat Belts Used Routinely Yes [employer] Information not available 02/28/2015 Are You Sexually Active? Yes [id number] Information not available 05/02/2020 Smoke Alarm In Home Yes Information not available 02/28/2015 At What Age Did You Start Smoking Tobacco? 0 Information not available 05/30/2020 Are You Passively Exposed To Smoke? No Information not available 02/28/2015 Do You Or Have You Ever Used Smokeless Tobacco? Never Used Smokeless Tobacco [id number] Information not available 05/02/2020 Do You Use Any Illicit Or Recreational Drugs? No Information not available 11/21/2021 Do You Use Sunscreen Routinely? Yes [id number] Information not available 05/02/2020 How Many Years [...] you able to care for yourself? Yes [id number] Information not available 05/02/2020 What is your exercise level? Heavy [id number] Information not available 05/02/2020 Mental Status None [...] or 50 mcg/0.25mL dose 1 [facility] 14:29:57 COVID-19, mRNA, LNP-S, PF, 100 mcg/0.5mL dose or 50 mcg/0.25mL dose 1 completed Jacque schuler [facility] 06/18/2023 14:29:57 Tdap 9 completed Not Available [facility] 07/17/2019 02:21:51 Influenza, split virus, quadrivalent , PF 0 cancelled patient objection BRENDA Morocho [facility] 05/24/2020 15:43:04 Past Encounters Encounter ID Performer Location Encounter Start Date Encounter Closed Date Diagnosis/Indication Diagnosis SNOMED-CT Code Diagnosis ICD10 Code Diagnosis Note [id number] autoEComm erce [address] [facility] [place] [address] 02/19/2006 00:00:00 [id number] autoEComm erce [address] [facility] [place] [address] 09/09/2005 00:00:00 [id number] autoEComm erce [address] [facility] [place] [address] 04/10/2005 00:00:00 [id number] autoEComm erce [address] [facility] [place] [address] 07/21/2007 00:00:00 [id number] autoEComm erce [address] [facility] [place] [address] 01/19/2009 00:00:00 [id number] autoEComm erce [address] [facility] [place] [address] 12/18/2009 00:00:00 [id number] autoEComm erce [address] [facility] [place] [address] 12/19/2010 00:00:00 [id number] autoEComm erce [address] [facility] [place] [address] 03/23/2012 00:00:00 [id number] autoEComm erce [address] [facility] [place], [place] [address] 08/26/2012 00:00:00 [id number] autoEComm nadiae [address] [facility] [place], [place] [address] 09/08/2012 00:00:00 [id number] Elpidio Onofrekaleb Main Office [address] [place] [address] [place] [address] 02/23/2014 14:08:45 02/23/2014 15:28:38 Adult health examination 352135739 Swelling o f finger joint 111830453 Seizure disorder 587086974 he was followed by neuro but has been seizure-fr ee since age 18. He will follow here for his meds and blood work. He does not want to stop meds because the last time he stopped at age 18 he had another seizure. [id number] Elpidio Felton Main Office [address] [place] [address] [place] [address] 02/28/2015 15:38:57 02/28/2015 16:23:55 Adult health examination 020696464 Knee pain 96692933 [id number] Humphrey Easton MD Main Office [address] [address] [place] [address] 05/07/2017 15:45:40 05/07/2017 16:57:31 Adult health examination 922669613 Z00.00 UTD with immunizati ons. Cancer screening not currently indicated. Seizure disorder 7937595 G40.909 he was followed by neuro but has been seizure-fr ee since age 18. He will follow here for his meds and blood work. He does not want to stop meds because the last time he stopped at age 18 he had another seizure. [id number] Humphrey Easton MD Main Office [address] [address] [place] [address] 05/15/2018 15:44:06 05/15/2018 16:34:21 Adult health examination 597015721 Z00.00 UTD with immunizati ons. Cancer screening not currently indicated. Seizure disorder 0343222 G40.909 he was followed by neuro but has been seizure-fr ee since age 18. He will follow here for his meds and blood work. He does not want to stop meds because the last time he stopped at age 18 he had another seizure. [id number] Humphrey Easton MD Main Office [address] [place] [address] 05/19/2019 15:44:50 05/19/2019 16:48:04 Adult health examination 788011441 Z00.00 UTD with immunizati ons. Cancer screening not currently indicated. Administra tion of viral vaccine 41019227 Z23 Seizure disorder 9580717 02 G40.909 he was followed by neuro but has been seizure-fr ee since age 18. He will follow here for his meds and blood work. He does not want to stop meds because the last time he stopped at age 18 he had another seizure. He may have to start on a generic med since his insurance is changing and the brand name may be too expensive. Exposure t o sexually transmissible disorder 352976734 Z20.2 [id number] Humphrey Easton MD Main Office [address] [address] 05/24/2020 15:25:03 05/24/2020 16:16:55 Adult health examination 821583449 Z00.00 UTD with immunizati ons. Cancer screening not currently indicated. Influenza vaccination declined 662593736 Z28.21 Seizure disorder 8586522 02 G40.909 he was followed by neuro but has been seizure-fr ee since age 18. He will follow here for his meds and blood work. He does not want to stop meds because the last time he stopped at age 18 he had another seizure. He may have to start on a generic med since his insurance is changing and the brand name may be too expensive. Insomnia 799156254 G47.0 0 Occasional ly uses OTC melatonin which helps. [id number] [facility] [address] [address] 09/18/2020 14:08:27 09/19/2020 09:31:08 Seizure disorder 980889682 G40.909 he was followed by neuro but has been seizure-fr ee since age 18. He will follow here for his meds and blood work. He does not want to stop meds because the last time he stopped at age he had another seizure. He would like to start the generic because his insurance will no longer cover the brand name. [id number] Humphrey Easton MD Main Office [address] [facility] [address] [place] [address] 11/06/2021 15:36:49 11/07/2021 09:06:34 Syncope 811229904 R55 Possibly vasovagal. Will get an ECHO to look for a cardiac etiology. Will also get labs; look for tegretol level since on a new preparatio n. [id number] Humphrey Easton MD Main Office [address] [facility] [address] [place] [address] 11/21/2021 13:50:31 11/21/2021 14:46:19 Adult health examination 951865230 Z00.00 UTD with immunizati ons including COVID. I recommende d that he get the booster. Cancer screening not currently indicated. Seizure disorder 5836378 02 G40.909 he was followed by neuro but has been seizure-fr ee since age 18. He does not want to stop meds because the last time he stopped he had another seizure. Serum crea tinine above reference range 238437062 R79.89 Has been elevated for 10 years and was evaluated by renal a few years ago. No etiology found. W/u was negative. [id number] Humph[facility] MD [facility] [address] [facility] [address] [place] [address] 06/13/2022 14:30:07 06/14/2022 09:08:06 Anterior chest wall pain [id number] R07.89 No clear etiology but does not appear to be cardiac. Syncope [id number] R55 Possibly vasovagal. ECHO and EKG were both normal. [id number] Humphrey Easton MD Main Office [address] [facility] [address] [place] [address] 11/26/2022 12:36:15 11/26/2022 13:33:43 Adult health examination [id number] Z00.00 UTD with immunizati ons including COVID. I recommende d that he get the booster. Cancer screening not currently indicated. Liver enzy mes level above reference range 831300104 R74.01 Seizure disorder [id number] G40.909 he was followed by neuro but has been seizure-fr ee since age 18. He does not want to stop meds because the last time he stopped he had another seizure. [id number] Humphrey Easton MD Main Office [address] [facility] [address] [place] [address] 03/02/2024 10:37:14 03/02/2024 12:31:00 Adult health examination [id number] Z00.00 Had initial COVID vaccine series but no boosters and no plans for additional vaccines.U TD with tetanus done in 2019.No need yet for cancer screening. Will start checking PSA and colon cancer screening at age 47. Seizure disorder [id number] 02 G40.909 he was followed by neuro but has been seizure-fr ee since age 18. He does not want to stop meds because the last time he stopped he had another seizure. [id number] Humph[facility] MD [facility] [address] [facility] [address] [place] [address] 05/06/2024 14:50:50 05/06/2024 16:39:07 Fracture of knee [id number] S82.90XA Traumatic rupture of patellar tendon [id number] S76.111A Followed by ortho s/p surgery. He is on pain meds and will start PT later this month. His recovery is expected to be 3-6 months. He needs assistance to accomplish most of his ADL's specifical ly bathing, dressing, toileting and transferri ng. We will look into getting him a [employer] for at least 3 months and then re evaluate. Health Concerns Section Related Observation LastModified by Organization Detai ls LastModified Time None Recorded Concern Status LastModified by Organization Details LastModified Time None Recorded Advance Directives Directive Y: HCP Payers Encounter Date Sequence Insurance Name Policy Number Policy Friedman Covered Member ID Friedman Member ID Guarantor Name 11/21/2021 1 [facility] [id number] Jakub Bowen [id number] Jakub Bowen 06/13/2022 1 [facility] [id number] Jakub Bowen [id number] Jakub Bowen 11/26/2022 1 [facility] [id number] Jakub Bowen [id number] Jakub Bowen 03/02/2024 1 [facility] (MEDICAID HMO) [id number] Jakub Bowen [id number] Jakub Bowen 03/02/2024 2 [place] [facility] Jakub Bowen [id number] Jakub Bowen 05/06/2024 1 [facility] (MEDICAID HMO) [id number] Jakub Bowen [id number] Jakub Bowen 05/06/2024 2 [place] [facility] Jakub Bowen [id number] Jakub Bowen Notes Date Note Type Note Provider Name and Address Organization Details Recorded Time 11/21/2021 text/html Generic HPI TemplateReported bypatient.Notes:No more syncopal episodes since he was her last. His w/u has been negative including EKG and labs. He is scheduled for a ECHO next month. Humphrey Easton MD [address], [address], [facility] 11/21/2021 17:21:47 06/13/2022 text/html He has been [...] this happening again. Humphrey Easton MD [address] [address], [place], [address], [facility] 06/19/2022 17:51:24 11/26/2022 text/html Generic HPI TemplateReported bypatient.Notes:He has been doing well. No current complaints.Vaccinated against COVID and has never been infected.Works 2 jobs. Humphrey Easton MD [address] [address], [place], [address], [facility] 11/26/2022 14:54:23 03/02/2024 text/html Generic HPI TemplateReported bypatient.Notes:He has been doing well [facility] since his last appointment.Exercises regularly at the gym and has started boxing which he finds therapeutic.He was fired from his job at [employer] earlier this year and is pursuing a wrongful termination case.Lives with his girlfriend and has shared custody with his 2 children. 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 He suffered an avulsion fracture as well as a torn patellar tendon. He was seen in the ER and given a knee brace and he scheduled an appointment with [facility] for 04/23/24. His pain was increasing and he was having difficulty ambulating so he called [facility] and got a sooner appointment on [...] is looking for assistance. Humphrey Easton MD [address], [address], [facility] 05/08/2024 09:09:46
== END 2024-07-05 12:07 | disposition home or self-care (01) ==
PROVIDERS: Visit Provider Orthopaedic Surgery
DX: S86.811D Strain of other muscle(s) and tendon(s) at lower leg level, right leg, subsequent encounter (principal)
CPT/HCPCS: 99024

== ENCOUNTER 2024-08-12 14:09 | Outpatient (AMB) | payer OTHER, SELFPAY ==
--- OUTSIDE RECORDS SUMMARY | 2024-08-12 14:14 | XMS_ITS | Encounter Summary ---
Author Organization [facility] Address [address] [address] Phone Care Team Providers Care Spinner Iron Name Role Phone Humphrey Easton MD Primary Care Provider Encounter Details Date Type Department Care Team (Late Contact Info) Description 07/22/2024 Telephone [facility] [address] [place] [address] Heydi Deleon [place] [address] [place] [address] Social History Tobacco Use Types Packs/Day Years Used Date Smoking Tobacco: Never Alcohol Use Standard Drinks/Week Comments Yes 0 (1 standard drink = 0.6 oz pure alcohol) Alcoholic Drinks/day: Occasional social drink Sex and Gender Information Value Date Recorded Sex Assigned at Not on file Legal Sex Male 4:31 PM EST Gender Identity Not on file Sexual Orientation Not on file documented as of this encounter Miscellaneous Notes * Telephone Encounter - Heydi Deleon MA - 07/22/2024 1:51 PM EST Spoke to pt letting pt know that due to a change in Dr. Inman schedule we had to cx and move the appt for 03/07/25 to 03/14/25@ 200 documented in this encounter Plan of Treatment Upcoming Encounters Date Type Department Care Team (Late st Contact Info) Description 03/14/2025 2:00 PM EDT Office Visit [facility] [address] [place] [phone] Tom Asencio MD [address] [place] [address] [place] [id number] documented as of this encounter Visit Diagnoses Not on filedocumented in this encounter Care Teams Spinner Iron Relationship Specialty Start Date End Date Humphrey Easton MD [address] PCP - General 05/04/19 documented as of this encounter
--- OUTSIDE RECORDS SUMMARY | 2024-08-12 14:14 | XMS_ITS | Data Portability ---
Author Organization [facility], Main Office Address [address] [place] [address] Care Team Providers Care Caregiver Assisted Living Name Role Phone HUMPHREY EASTON Primary Care Provider SAMIA JOSHI Referring Provider [phone] JESSA CLARKE Referring Provider [phone] CASSANDRA SCHNEIDER Referring Provider Assessment Encounter Date Assessment Date Assessment LastModified by Organization Details LastModified Time 06/13/2022 06/13/2022 This service was provided using telemedicine. Patient consented to video & audio visit Patient was located in the [facility]. Provider was located in the office. No other persons participated in the telemedicine visit except for the patient unless otherwise indicated here. {{}} Total time of visit was 20 minutes. [email or web address] Not available 06/19/2022 09:28:23 05/06/2024 05/06/2024 This service was provided using telemedicine. Patient consented to video & audio visit Patient was located in the [facility]. Provider was located in the office. No other persons participated in the telemedicine visit except for the patient unless otherwise indicated here. {{}} Total time of visit was 17 minutes. [email or web address] Not available 05/08/2024 09:02:38 Plan of Treatment Reminders Order Date Submit Date Provider Last Modified By Organization Details Last Modified Time Details Appointments None recorded . Lab CMP, serum or plasma 2023 024 MEADOWS OF DAN [facility], [address], [place], [address], 4 06:08:08 CBC w/ auto diff 2023 024 MICAELA [facility], [address], [place], [address], 4 06:08:06 lipid panel, serum 2023 024 MICAELA [facility], [address], [place], [address], 4 06:08:09 urinalys is, complete 2023 024 MICAELA [facility], [address], [place], [address], 4 06:08:08 carbamaz epine, serum or plasma 2022 023 MICAELA [facility], [address], [place], [address], 3 16:20:20 lipid panel, serum 2022 023 MICAELA [facility], [address], [place], [address], 3 16:20:22 CMP, serum or plasma 2022 023 MICAELA [facility], [address], [facility] [place], [address], 3 16:20:21 Referral None recorded . Procedures screenin g test of visual acuity, quantita tive, bilatera l (PROC) 2023 024 [email or web address] In-Office Order, Internal Use Only DO Not Attach Compendium DO Not Attach Compendium, Do Not Delete/merge, [id number] 4 12:49:02 Surgeries None recorded . Imaging electroc ardiogra m 2023 024 [email or web address] In-Office Order, Internal Use Only DO Not Attach Compendium DO Not Attach Compendium, Do Not Delete/merge, [id number] 12:31:01 audiogra m 2023 024 [email or web address] In-Office Order, Internal Use Only DO Not Attach Compendium DO Not Attach Compendium, Do Not Delete/merge, [id number] 4 12:48:56 exercise stress test - Intermit tent chest wall pain and an episode of syncope. R/o ischemia . 2021 023 graham [facility], [address] [place] [address] Drive, [address], [place], [address], 3 09:27:17 Medication Orders None recorded . Patient TargetsNo targets recorded. Patient Instructions Encounter Date Encounter Id Patient Instructions Last Modified By Organization Details Last Modified Time 11/21/2021 [id number] epilepsy: care instructions [email or web address] Not available 11/21/2021 17:19:24 06/13/2022 [id number] fainting: care instructions [email or web address] Not available 06/19/2022 17:46:04 lightheadedness or faintness: care instructions [email or web address] Not available 06/19/2022 17:46:04 11/26/2022 [id number] epilepsy: care instructions [email or web address] Not available 11/26/2022 13:08:52 03/02/2024 [id number] epilepsy: care instructions [email or web address] Not available 03/02/2024 [...] Available [facility] [address], [address], 11/07/2021 16:18:48 11/08/19 22 11/07/2021 COMPR EHENS BRENDA METAB OLIC PANL glucose 74 mg/dL (70-99 ) Not Available [facility], [address], 11/07/2021 16:18:49 11/08/19 22 11/07/2021 COMPR EHENS BRENDA METAB OLIC PANL BUN 21 mg/dL (6-20) high Not Available [facility] [address] [place], [address], 11/07/2021 16:18:49 11/08/19 22 11/07/2021 COMPR EHENS BRENDA METAB OLIC PANL creatinine 1.4 mg/dL (0.7-1 .2) high Not Available [facility] [address] [place], [address], 11/07/2021 16:18:49 11/08/19 22 11/07/2021 COMPR EHENS BRENDA METAB OLIC PANL sodium 138 mmol/ L (133-1 45) Not Available [facility] [address] [place], [address], 11/07/2021 16:18:49 11/08/19 22 11/07/2021 COMPR EHENS BRENDA METAB OLIC PANL potassium 4.7 mmol/ L (3.6-5 .2) Not Available [facility] [place], [address], 11/07/2021 16:18:49 11/08/19 22 11/07/2021 COMPR EHENS BRENDA METAB OLIC PANL chloride 102 mmol/ L (98-10 7) Not Available [facility] [address] [place], [address], 11/07/2021 16:18:49 11/08/19 22 11/07/2021 COMPR EHENS BRENDA METAB OLIC PANL bicarbonate 27 mmol/ L (22-29 ) Not Available [facility] [place], [address], 11/07/2021 16:18:49 11/08/19 22 11/07/2021 COMPR EHENS BRENDA METAB OLIC PANL anion gap 9 (4-17) Not Available [facility] [place], [address], 11/07/2021 16:18:49 11/08/19 22 11/07/2021 COMPR EHENS BRENDA METAB OLIC PANL albumin 4.5 gm/dL (3.4-4 .8) Not Available [facility] [place], [address], 11/07/2021 16:18:49 11/08/19 22 11/07/2021 COMPR EHENS BRENDA METAB OLIC PANL calcium 9.5 mg/dL (8.6-1 0.5) Not Available [facility] [address] [place], [address], 11/07/2021 16:18:49 11/08/19 22 11/07/2021 COMPR EHENS BRENDA METAB OLIC PANL bilirubin,to riri 0.3 mg/dL (0-1.2 ) Not Available [facility] [place], [address], 11/07/2021 16:18:49 11/08/19 22 11/07/2021 COMPR EHENS BRENDA METAB OLIC PANL total protein 6.9 gm/dL (6.2-8 .2) Not Available [facility] [address] [place], [address], 11/07/2021 16:18:49 11/08/19 22 11/07/2021 COMPR EHENS BRENDA METAB OLIC PANL Ag ratio 1.9 Not Available [facility] [address] [place], [address], 11/07/2021 16:18:49 11/08/19 22 11/07/2021 COMPR EHENS BRENDA METAB OLIC PANL AST 22 U/L (0-40) Not Available [facility] [address] [place], [address], 11/07/2021 16:18:49 11/08/19 22 11/07/2021 COMPR EHENS BRENDA METAB OLIC PANL alk phos 68 U/L (40-12 9) Not Available [facility] [address] [place], [address], 11/07/2021 16:18:49 11/08/19 22 11/07/2021 COMPR EHENS BRENDA METAB OLIC PANL ALT 22 U/L (0-41) Not Available [facility] [address] [place], [address], 11/07/2021 16:18:49 11/08/19 22 11/07/2021 COMPR EHENS [...] Available [facility] [address] [place], [address], 11/07/2021 16:18:49 11/08/19 22 11/07/2021 COMPL ETE BLOOD COUNT WBC 6.0 K/mm3 (4.0-1 1.0) Not Available [facility] [address] [place], [address], 11/07/2021 16:21:49 11/08/19 22 11/07/2021 COMPL ETE BLOOD COUNT RBC 4.56 M/mm3 (4.70- 6.10) low Not Available [facility] [address] [place], [address], 11/07/2021 16:21:49 11/08/19 22 11/07/2021 COMPL ETE BLOOD COUNT HGB 13.7 gm/dL (13.7- 17.1) Not Available [facility] [address] [place], [address], 11/07/2021 16:21:49 11/08/19 22 11/07/2021 COMPL ETE BLOOD COUNT HCT 43.2 % (40.5- 50.0) Not Available [facility] [address] [place], [address], 11/07/2021 16:21:49 11/08/19 22 11/07/2021 COMPL ETE BLOOD COUNT MCV 94.7 fL (80.0- 94.0) high Not Available [facility] [address] [place], [address], 11/07/2021 16:21:49 11/08/19 22 11/07/2021 COMPL ETE BLOOD COUNT MCH 30.0 pg (27.0- 34.0) Not Available [facility] [address], [address], 11/07/2021 16:21:49 11/08/19 22 11/07/2021 COMPL ETE BLOOD COUNT MCHC 31.7 g/dL (33.0- 37.0) low Not Available [facility] [address], [address], 11/07/2021 16:21:49 11/08/19 22 11/07/2021 COMPL ETE BLOOD COUNT plt 253 K/mm3 (150-4 60) Not Available [facility] [address] [place], [address], 11/07/2021 16:21:49 11/08/19 22 11/07/2021 COMPL ETE BLOOD COUNT RDW-SD 42.5 fL (<47.0 ) Not Available [facility] [place], [address], 11/07/2021 16:21:49 11/08/19 22 11/07/2021 COMPL ETE BLOOD COUNT MPV 9.7 fL (9.4-1 2.4) Not Available [facility] [address] [place], [address], 11/07/2021 16:21:49 11/08/19 22 11/07/2021 COMPL ETE BLOOD COUNT automated NRBC 0.0 #/100 _WBC' s Not Available [facility] [address] [place], [address], 11/07/2021 16:21:49 11/08/19 22 11/07/2021 COMPL ETE BLOOD COUNT abs. NRBC 0.0 K/mm3 Not Available [facility] [address] [place], [address], 11/07/2021 16:21:49 12/21/19 23 12/20/2022 CARBA MAZEP [...] Available [facility] [address] [place], [address], 12/20/2022 16:20:20 12/21/19 23 12/20/2022 COMPR EHENS BRENDA METAB OLIC PANL glucose 96 mg/dL (70-99 ) Not Available [facility] [address] [place], [address], 12/20/2022 16:20:21 12/21/19 23 12/20/2022 COMPR EHENS BRENDA METAB OLIC PANL BUN 15 mg/dL (6-20) Not Available [facility] [address] [place], [address], 12/20/2022 16:20:21 12/21/19 23 12/20/2022 COMPR EHENS BRENDA METAB OLIC PANL creatinine 1.4 mg/dL (0.7-1 .2) high Not Available [facility] [address] [place], [address], 12/20/2022 16:20:21 12/21/19 23 12/20/2022 COMPR EHENS BRENDA METAB OLIC PANL sodium 138 mmol/ L (133-1 45) Not Available [facility] [address] [place], [address], 12/20/2022 16:20:21 12/21/19 23 12/20/2022 COMPR EHENS BRENDA METAB OLIC PANL potassium 4.2 mmol/ L (3.6-5 .2) Not Available [facility] [address] [place], [address], 12/20/2022 16:20:21 12/21/19 23 12/20/2022 COMPR EHENS BRENDA METAB OLIC PANL chloride 101 mmol/ L (98-10 7) Not Available [facility] [address], [address], 12/20/2022 16:20:21 12/21/19 23 12/20/2022 COMPR EHENS BRENDA METAB OLIC PANL bicarbonate 27 mmol/ L (22-29 ) Not Available [facility] [address], [address], 12/20/2022 16:20:21 12/21/19 23 12/20/2022 COMPR EHENS BRENDA METAB OLIC PANL anion gap 10 (4-17) Not Available [facility] [address] [place], [address], 12/20/2022 16:20:21 12/21/19 23 12/20/2022 COMPR EHENS BRENDA METAB OLIC PANL albumin 4.6 gm/dL (3.4-4 .8) Not Available [facility] [address] [place], [address], 12/20/2022 16:20:21 12/21/19 23 12/20/2022 COMPR EHENS BRENDA METAB OLIC PANL calcium 9.4 mg/dL (8.6-1 0.5) Not Available [facility] [address] [place], [address], 12/20/2022 16:20:21 12/21/19 23 12/20/2022 COMPR EHENS BRENDA METAB OLIC PANL bilirubin,to riri 0.3 mg/dL (0-1.2 ) Not Available [facility] [address] [place], [address], 12/20/2022 16:20:21 12/21/19 23 12/20/2022 COMPR EHENS BRENDA METAB OLIC PANL total protein 6.9 gm/dL (6.2-8 .2) Not Available [facility] [address] [place], [address], 12/20/2022 16:20:21 12/21/19 23 12/20/2022 COMPR EHENS BRENDA METAB OLIC PANL Ag ratio 2.0 Not Available [facility] [address] [place], [address], 12/20/2022 16:20:21 12/21/19 23 12/20/2022 COMPR EHENS BRENDA METAB OLIC PANL AST 57 U/L (0-40) high Not Available [facility] [address] [place], [address], 12/20/2022 16:20:21 12/21/19 23 12/20/2022 COMPR EHENS BRENDA METAB OLIC PANL alk phos 68 U/L (40-12 9) Not Available [facility] [address] [place], [address], 12/20/2022 16:20:21 12/21/19 23 12/20/2022 COMPR EHENS BRENDA METAB OLIC PANL ALT 32 U/L (0-41) Not Available [facility] [address] [place], [address], 12/20/2022 16:20:21 12/21/19 23 12/20/2022 COMPR EHENS [...] Available [facility] [address] [place], [address], 12/20/2022 16:20:21 12/21/19 23 12/20/2022 LIPID PANEL cholesterol, total 236 mg/dL (<200) high Not Available [facility] [address] [place], [address], 12/20/2022 16:20:22 12/21/19 23 12/20/2022 LIPID PANEL triglyceride 70 mg/dL (<150) Not Available [facility] [address] [place], [address], 12/20/2022 16:20:22 12/21/19 23 12/20/2022 LIPID PANEL HDL chol 100 mg/dL (>39) Not Available [facility] [address] [place], [address], 12/20/2022 16:20:22 12/21/19 23 12/20/2022 LIPID PANEL LDL cholesterol, calculated 122 mg/dL (0-130 ) Not Available [facility] [address] [place], [address], 12/20/2022 16:20:22 12/21/19 23 12/20/2022 LIPID PANEL non HDL cholesterol (calc) 136 mg/dL (<160) Not Available [facility] [address] [place], [address], 12/20/2022 16:20:22 03/02/20 24 03/02/2024 scree fabio test of visua l acuit y, quant itati ve, bilat eral (PROC ) L EYE UNCORRECTED 20/30 Not Available In-O ffice Order Internal Use Only DO Not Attach Compendium DO Not Attach Compendium, Do Not Delete/merge, [id number] 03/02/2024 12:00:29 03/02/20 24 03/02/2024 scree fabio test of visua l acuit y, quant itati ve, bilat eral (PROC ) R EYE UNCORRECTED 20/40 Not Available In-O ffice Order Internal Use Only DO Not Attach Compendium DO Not Attach Compendium, Do Not Delete/merge, [id number] 03/02/2024 12:00:29 03/02/20 24 03/02/2024 scree fabio test of visua l acuit y, quant itati ve, bilat eral (PROC ) KAROL UNCORRECTED 20/25 Not Available In-O ffice Order Internal Use Only DO Not Attach Compendium DO Not Attach Compendium, Do Not Delete/merge, [id number] 03/02/2024 12:00:29 03/05/20 24 03/06/2024 CBC WITH DIFFE RENTI AL/PL ATELE T WBC 6.0 x10e3 /uL 3.4-10 .8 normal Not Available [facility] ([facility]) [address] [place], [address], 03/06/2024 06:08:06 03/05/20 24 03/06/2024 CBC WITH DIFFE RENTI AL/PL ATELE T RBC 4.95 x10e6 /uL 4.14-5 .80 normal Not Available [facility] ([facility]) [address] [facility] [place], [place], [address], 03/06/2024 06:08:06 03/05/20 24 03/06/2024 CBC WITH DIFFE RENTI AL/PL ATELE T hemoglobin 14.7 g/dL 13.0-1 7.7 normal Not Available [facility] ([facility]) [address] [place], [address], 03/06/2024 06:08:06 03/05/20 24 03/06/2024 CBC WITH DIFFE RENTI AL/PL ATELE T hematocrit 44.6 % 37.5-5 1.0 normal Not Available [facility] ([facility]) [address] [facility] [place], [place], [address], 03/06/2024 06:08:06 03/05/20 24 03/06/2024 CBC WITH DIFFE RENTI AL/PL ATELE T MCV 90 fL 79-97 normal Not Available [facility] ([facility]) [address] [facility] [place], [place], [address], 03/06/2024 06:08:06 03/05/20 24 03/06/2024 CBC WITH DIFFE RENTI AL/PL ATELE T MCH 29.7 pg 26.6-3 3.0 normal Not Available [facility] ([facility]) [address] [place], [address], 03/06/2024 06:08:06 03/05/20 24 03/06/2024 CBC WITH DIFFE RENTI AL/PL ATELE T MCHC 33.0 g/dL 31.5-3 5.7 normal Not Available [facility] ([facility]) [address] [place], [address], 03/06/2024 06:08:06 03/05/20 24 03/06/2024 CBC WITH DIFFE RENTI AL/PL ATELE T RDW 12.6 % 11.6-1 5.4 Not Available [facility] ([facility]) [address] [place], [address], 03/06/2024 06:08:06 03/05/20 24 03/06/2024 CBC WITH DIFFE RENTI AL/PL ATELE T platelets 266 x10e3 /uL 150-45 0 normal Not Available [facility] ([facility]) [address] [facility] [place], [place], [address], 03/06/2024 06:08:06 03/05/20 24 03/06/2024 CBC WITH DIFFE RENTI AL/PL ATELE T neutrophils 42 % not estab. normal Not Available [facility] ([facility]) [address] [facility] [place], [place], [address], 03/06/2024 06:08:06 03/05/20 24 03/06/2024 CBC WITH DIFFE RENTI AL/PL ATELE T lymphs 49 % not estab. normal Not Available [facility] ([facility]) [address] [facility] [place], [place], [address], 03/06/2024 06:08:06 03/05/20 24 03/06/2024 CBC WITH DIFFE RENTI AL/PL ATELE T monocytes 5 % not estab. normal Not Available [facility] ([facility]) [address] [facility] [place], [place], [address], 03/06/2024 06:08:06 03/05/20 24 03/06/2024 CBC WITH DIFFE RENTI AL/PL ATELE T eos 3 % not estab. normal Not Available [facility] ([facility]) [address] [facility] [place], [place], [address], 03/06/2024 06:08:06 03/05/20 24 03/06/2024 CBC WITH DIFFE RENTI AL/PL ATELE T basos 1 % not estab. normal Not Available [facility] ([facility]) [address] [facility] [place], [place], [address], 03/06/2024 06:08:06 03/05/20 24 03/06/2024 CBC WITH DIFFE RENTI AL/PL ATELE T immature cells [employer] Not Available [facility] ([facility]) [address] [facility] [place], [place], [address], 03/06/2024 06:08:06 03/05/20 24 03/06/2024 CBC WITH DIFFE RENTI AL/PL ATELE T neutrophils (absolute) 2.5 x10e3 /uL 1.4-7. 0 normal Not Available [facility] ([facility]) [address] [facility] [place], [place], [address], 03/06/2024 06:08:06 03/05/20 24 03/06/2024 CBC WITH DIFFE RENTI AL/PL ATELE T lymphs (absolute) 3.0 x10e3 /uL 0.7-3. 1 normal Not Available [facility] ([facility]) [address] [facility] [place], [place], [address], 03/06/2024 06:08:06 03/05/20 24 03/06/2024 CBC WITH DIFFE RENTI AL/PL ATELE T monocytes(ab solute) 0.3 x10e3 /uL 0.1-0. 9 normal Not Available [facility] ([facility]) [address] [facility] [place], [place], [address], 03/06/2024 06:08:06 03/05/20 24 03/06/2024 CBC WITH DIFFE RENTI AL/PL ATELE T eos (absolute) 0.2 x10e3 /uL 0.0-0. 4 normal Not Available [facility] ([facility]) [address] [facility] [place], [place], [address], 03/06/2024 06:08:06 03/05/20 24 03/06/2024 CBC WITH DIFFE RENTI AL/PL ATELE T baso (absolute) 0.1 x10e3 /uL 0.0-0. 2 normal Not Available [facility] ([facility]) [address] [place], [address], 03/06/2024 06:08:06 03/05/20 24 03/06/2024 CBC WITH DIFFE RENTI AL/PL ATELE T immature granulocytes 0 % not estab. Not Available [facility] ([facility]) [address], [place], [address], 03/06/2024 06:08:06 03/05/20 24 03/06/2024 CBC WITH DIFFE RENTI AL/PL ATELE T immature grans (abs) 0.0 x10e3 /uL 0.0-0. 1 Not Available [facility] ([facility]) [address], [place], [address], 03/06/2024 06:08:06 03/05/20 24 03/06/2024 CBC WITH DIFFE RENTI AL/PL ATELE T NRBC [employer] [facility] [employer] Not Available [facility] ([facility]) [address], [place], [address], 03/06/2024 06:08:06 03/05/20 24 03/06/2024 CBC WITH DIFFE RENTI AL/PL ATELE T hematology comments: [employer] [facility] [employer] Not Available [facility] ([facility]) [address] [facility] [place], [place], [address], 03/06/2024 06:08:06 03/05/20 24 03/06/2024 COMP. METAB OLIC PANEL (14) glucose 100 mg/dL 70-99 above high normal Not Available [facility] ([facility]) [address] [facility] [place], [place], [address], 03/06/2024 06:08:08 03/05/20 24 03/06/2024 COMP. METAB OLIC PANEL (14) BUN 15 mg/dL 6-24 normal Not Available [facility] ([facility]) [address] [facility] [place], [place], [address], 03/06/2024 06:08:08 03/05/20 24 03/06/2024 COMP. METAB OLIC PANEL (14) creatinine 1.40 mg/dL 0.76-1 .27 above high normal Not Available [facility] ([facility]) [address] [facility] [place], [place], [address], 03/06/2024 06:08:08 03/05/20 24 03/06/2024 COMP. METAB OLIC PANEL (14) eGFR 65 mL/mi n/1.7 3 >59 normal Not Available [facility] ([facility]) [address] [facility] [place], [place], [address], 03/06/2024 06:08:08 03/05/20 24 03/06/2024 COMP. METAB OLIC PANEL (14) BUN/creatini ne ratio 11 9-20 normal Not Available [facility] ([facility]) [address] [facility] [place], [place], [address], 03/06/2024 06:08:08 03/05/20 24 03/06/2024 COMP. METAB OLIC PANEL (14) sodium 139 mmol/ L 134-14 4 normal Not Available [facility] ([facility]) [address] [facility] [place], [place], [address], 03/06/2024 06:08:08 03/05/20 24 03/06/2024 COMP. METAB OLIC PANEL (14) potassium 5.3 mmol/ L 3.5-5. 2 above high normal Not Available [facility] ([facility]) [address] [facility] [place], [place], [address], 03/06/2024 06:08:08 03/05/20 24 03/06/2024 COMP. METAB OLIC PANEL (14) chloride 100 mmol/ L 96-106 normal Not Available [facility] ([facility]) [address] [facility] [place], [place], [address], 03/06/2024 06:08:08 03/05/20 24 03/06/2024 COMP. METAB OLIC PANEL (14) carbon dioxide, total 26 mmol/ L 20-29 normal Not Available [facility] ([facility]) [address] [facility] [place], [place], [address], 03/06/2024 06:08:08 03/05/20 24 03/06/2024 COMP. METAB OLIC PANEL (14) calcium 9.7 mg/dL 8.7-10 .2 normal Not Available [facility] ([facility]) [address] [place], [address], 03/06/2024 06:08:08 03/05/20 24 03/06/2024 COMP. METAB OLIC PANEL (14) protein, total 7.0 g/dL 6.0-8. 5 normal Not Available [facility] ([facility]) [address], [place], [address], 03/06/2024 06:08:08 03/05/20 24 03/06/2024 COMP. METAB OLIC PANEL (14) albumin 4.5 g/dL 4.1-5. 1 normal Not Available [facility] ([facility]) [address], [place], [address], 03/06/2024 06:08:08 03/05/20 24 03/06/2024 COMP. METAB OLIC PANEL (14) globulin, total 2.5 g/dL 1.5-4. 5 Not Available [facility] ([facility]) [address] [place], [address], 03/06/2024 06:08:08 03/05/20 24 03/06/2024 COMP. METAB OLIC PANEL (14) bilirubin, total 0.3 mg/dL 0.0-1. 2 normal Not Available [facility] ([facility]) [address], [place], [address], 03/06/2024 06:08:08 03/05/20 24 03/06/2024 COMP. METAB OLIC PANEL (14) alkaline phosphatase 73 IU/L 44-121 normal Not Available [facility] ([facility]) [address], [place], [address], 03/06/2024 06:08:08 03/05/20 24 03/06/2024 COMP. METAB OLIC PANEL (14) AST (SGOT) 27 IU/L 0-40 normal Not Available [facility] ([facility]) [address] [facility] [place], [address], 03/06/2024 06:08:08 03/05/20 24 03/06/2024 COMP. METAB OLIC PANEL (14) ALT (SGPT) 25 IU/L 0-44 normal Not Available [facility] ([facility]) [address] [facility] [place], [address], 03/06/2024 06:08:08 03/05/20 24 03/06/2024 URINA LYSIS , COMPL ETE specific gravity 1.014 1.005- 1.030 normal Not Available [facility] ([facility]) [address] [facility] [place], [address], 03/06/2024 06:08:08 03/05/20 24 03/06/2024 URINA LYSIS , COMPL ETE pH 7.5 5.0-7. 5 normal Not Available [facility] ([facility]) [address] [facility] [place], [address], 03/06/2024 06:08:08 03/05/20 24 03/06/2024 URINA LYSIS , COMPL ETE urine-color Yellow yellow Not Available [facility] ([facility]) [address] [facility] [place], [address], 03/06/2024 06:08:08 03/05/2003/06/2024 URINA LYSIS , COMPL ETE appearance Clear clear Not Available [facility] ([facility]) [address] [facility] [place], [address], 03/06/2024 06:08:08 03/05/20 24 03/06/2024 URINA LYSIS , COMPL ETE WBC esterase Negati ve negati ve Not Available [facility] ([facility]) [address] [facility] [place], [address], 03/06/2024 06:08:08 03/05/20 24 03/06/2024 URINA LYSIS , COMPL ETE protein Negati ve negati ve/tra ce Not Available [facility] ([facility]) [address] [place], [address], 03/06/2024 06:08:08 03/05/20 24 03/06/2024 URINA LYSIS , COMPL ETE glucose Negati ve negati ve Not Available [facility] ([facility]) [address] [place], [address], 03/06/2024 06:08:08 03/05/20 24 03/06/2024 URINA LYSIS , COMPL ETE ketones Negati ve negati ve Not Available [facility] ([facility]) [address] [place], [address], 03/06/2024 06:08:08 03/05/20 24 03/06/2024 URINA LYSIS , COMPL ETE occult blood Negati ve negati ve Not Available [facility] ([facility]) [address] [place], [address], 03/06/2024 06:08:08 03/05/20 24 03/06/2024 URINA LYSIS , COMPL ETE bilirubin Negati ve negati ve Not Available [facility] ([facility]) [address] [place], [address], 03/06/2024 06:08:08 03/05/20 24 03/06/2024 URINA LYSIS , COMPL ETE urobilinogen ,semi-qn 0.2 mg/dL 0.2-1. 0 normal Not Available [facility] ([facility]) [address] [place], [address], 03/06/2024 06:08:08 03/05/20 24 03/06/2024 URINA LYSIS , COMPL ETE nitrite, urine Negati ve negati ve Not Available [facility] ([facility]) [address], [place], [address], 03/06/2024 06:08:08 03/05/20 24 03/06/2024 URINA LYSIS , COMPL ETE microscopic examination Commen t Micro scopi c follo ws if indic ated. Not Available [facility] ([facility]) [address] [facility], [place], [address], 03/06/2024 06:08:08 03/05/20 24 03/06/2024 URINA LYSIS , COMPL ETE microscopic examination See below: Micro scopi c was indic ated and was perfo rmed. Not Available [facility] ([facility]) [address] [facility] [place] [facility], [place], [address], 03/06/2024 06:08:08 03/05/20 24 03/06/2024 URINA LYSIS , COMPL ETE WBC None seen /hpf 0 - 5 Not Available [facility] ([facility]) [address] [facility], [place], [address], 03/06/2024 06:08:08 03/05/20 24 03/06/2024 URINA LYSIS , COMPL ETE RBC None seen /hpf 0 - 2 Not Available [facility] ([facility]) [address] [facility], [place], [address], 03/06/2024 06:08:08 03/05/20 24 03/06/2024 URINA LYSIS , COMPL ETE epithelial cells (non renal) None seen /hpf 0 - 10 Not Available [facility] ([facility]) [address] [facility], [place], [address], 03/06/2024 06:08:08 03/05/20 24 03/06/2024 URINA LYSIS , COMPL ETE epithelial cells (renal) [employer] Not Available [facility] ([facility]) [address] [facility] [place], [place], [address], 03/06/2024 06:08:08 03/05/20 24 03/06/2024 URINA LYSIS , COMPL ETE casts None seen /lpf none seen Not Available [facility] ([facility]) [address], [place], [address], 03/06/2024 06:08:08 03/05/20 24 03/06/2024 URINA LYSIS , COMPL ETE cast type [employer] Not Available [facility] ([facility]) [address], [place], [address], 03/06/2024 06:08:08 03/05/20 24 03/06/2024 URINA LYSIS , COMPL ETE crystals [employer] Not Available [facility] ([facility]) [address], [place], [address], 03/06/2024 06:08:08 03/05/20 24 03/06/2024 URINA LYSIS , COMPL ETE crystal type [employer] Not Available [facility] ([facility]) [address], [place], [address], 03/06/2024 06:08:08 03/05/20 24 03/06/2024 URINA LYSIS , COMPL ETE mucus threads [employer] Not Available [facility] ([facility]) [address], [place], [address], 03/06/2024 06:08:08 03/05/20 24 03/06/2024 URINA LYSIS , COMPL ETE bacteria None seen none seen/f ew Not Available [facility] ([facility]) [address], [place], [address], 03/06/2024 06:08:08 03/05/20 24 03/06/2024 URINA LYSIS , COMPL ETE yeast [employer] Not Available [facility] ([facility]) [address], [place], [address], 03/06/2024 06:08:08 03/05/20 24 03/06/2024 URINA LYSIS , COMPL ETE trichomonas [employer] Not Available [facility] ([facility]) [address] [facility] [place], [address], 03/06/2024 06:08:08 03/05/20 24 03/06/2024 URINA LYSIS , COMPL ETE comment [employer] Not Available [facility] ([facility]) [address] [place], [address], 03/06/2024 06:08:08 03/05/20 24 03/06/2024 LIPID PANEL cholesterol, total 259 mg/dL 100-19 9 above high normal Not Available [facility] ([facility]) [address] [place], [address], 03/06/2024 06:08:09 03/05/20 24 03/06/2024 LIPID PANEL triglyceride s 109 mg/dL 0-149 normal Not Available [facility] ([facility]) [address] [place], [address], 03/06/2024 06:08:09 03/05/20 24 03/06/2024 LIPID PANEL HDL cholesterol 97 mg/dL >39 normal Not Available [facility] ([facility]) [address] [place], [address], 03/06/2024 06:08:09 03/05/20 24 03/06/2024 LIPID PANEL VLDL cholesterol jaylen 18 mg/dL 5-40 Not Available [facility] ([facility]) [address] [place], [address], 03/06/2024 06:08:09 03/05/20 24 03/06/2024 LIPID PANEL LDL chol calc ([facility]) 144 mg/dL 0-99 above high normal Not Available [facility] ([facility]) [address] [place], [address], 03/06/2024 06:08:09 03/05/20 24 03/06/2024 LIPID PANEL LDL calc comment: [employer] Not Available [facility] ([facility]) [address] [facility] [place], [place], [address], 03/06/2024 06:08:09 11/07/19 22 11/07/2021 elect rocar diogr am No observ ation record ed. [email or web address] In-Office Order Internal Use Only DO Not Attach Compendium DO Not Attach Compendium, Do Not Delete/merge, [id number] 11/07/2021 11:52:03 11/07/19 22 elect rocar diogr am No observ ation record ed. [email or web address] In-Office Order Internal Use Only DO Not Attach Compendium DO Not Attach Compendium, Do Not Delete/merge, [id number] 11/06/2021 20:12:00 11/09/19 22 US, echoc ardio gram No observ ation record ed. [facility] [address], [address], 11/08/2021 16:52:09 12/22/19 22 12/12/2021 US, echoc ardio gram No observ ation record ed. [facility] [address] [facility], [place], [address], 12/22/2021 11:47:38 09/04/19 23 09/02/2022 exerc ise stres s test No observ ation record ed. [facility] Diagnostic Testing [address] [place], [address], 09/11/2022 18:58:21 09/07/19 23 09/02/2022 imagi ng/di agnos tic resul t No observ ation record ed. [facility] Diagnostic [facility] [address] [place], [address], 09/11/2022 19:00:30 03/02/20 24 03/02/2024 elect rocar diogr am No observ ation record ed. [email or web address] In-Office Order Internal Use Only DO Not Attach Compendium DO Not Attach Compendium, Do Not Delete/merge, [id number] 03/02/2024 12:13:17 03/02/20 24 elect kellie see am No observ ation record ed. [email or web address] In-Office Order Internal Use Only DO Not Attach Compendium DO Not Attach Compendium, Do Not Delete/merge, [id number] 03/02/2024 12:13:07 03/02/20 24 03/02/2024 audio gram No observ ation record ed. [email or web address] In-Office Order Internal Use Only DO Not Attach Compendium DO Not Attach Compendium, Do Not Delete/merge, [id number] 03/02/2024 13:42:23 Result Notes None recorded. Problems Name Problem SNOMED Code Status Onset Date Resolution Date Notes Provider Name and Address Organization Details Recorded Time Anemia 164825431 Completed 201202/03/2014 RECORDED 08/26/19 13 4:30PM BY COOPER ALARCON ON/ADDEN DUM Not Available [facility] 4 12:15:45 Impacted cerumen 28920772 Completed 201102/03/2014 RECORDED 02/24/20 12 1:21PM BY COOPER ALARCON ON/ADDEN DUM Not Available [facility] 4 12:15:45 Injury of knee 477106324 Completed 201102/03/2014 RECORDED 02/24/20 12 1:21PM BY COOPER ALARCON ON/ADDEN DUM Not Available [facility] 4 12:15:45 Administ ration of bacteria l and viral vaccine Completed 200902/03/2014 RECORDED 12/19/19 10 3:51PM BY DANE FLORIAN MA, OFFICE VISIT Not Available [facility] 4 12:15:45 Joint pain in ankle and foot Completed 201102/03/2014 RECORDED 02/24/20 12 1:21PM BY COOPER ALARCON ON/ADDEN DUM Not Available [facility] 4 12:15:45 Adult health examinat ion Completed 201202/03/2014 RECORDED 08/26/19 13 4:30PM BY INDERJIT ALARCONATI ON/ADDEN DUM Not Available [facility] 4 12:15:45 Anemia 791113671 Completed 201202/04/2014 RECORDED 08/26/19 13 4:30PM BY INDERJIT ALARCONATI ON/ADDEN DUM Not Available [facility] 4 03:34:20 Impacted ramez 57770154 Completed 201102/04/2014 RECORDED 02/24/20 12 1:21PM BY INDERJIT ALARCONATI ON/ADDEN DUM Not Available [facility] 4 03:34:20 Injury of knee 226717756 Completed 201102/04/2014 RECORDED 02/24/20 12 1:21PM BY INDERJIT ALARCONATI ON/ADDEN DUM Not Available [facility] 4 03:34:20 Administ ration of bacteria l and viral vaccine Completed 200902/04/2014 RECORDED 12/19/19 10 3:51PM BY DANE FLORIAN MA, OFFICE VISIT Not Available [facility] 4 03:34:20 Joint pain in ankle and foot Completed 201102/04/2014 RECORDED 02/24/20 12 1:21PM BY COOPER ALARCON ON/ADDEN DUM Not Available [facility] 4 03:34:20 Adult health examinat ion Completed 201202/04/2014 RECORDED 08/26/19 13 4:30PM BY INDERJIT ALARCONATI ON/ADDEN DUM Not Available [facility] 4 03:34:20 Anemia 695015817 Completed 201201/11/2014 RECORDED 08/26/19 13 4:30PM BY INDERJIT ALARCONATI ON/ADDEN DUM Not Available [facility] 4 13:47:39 General examinat ion of patient Completed 201202/28/2015 RECORDED 10/09/19 13 10:15AM BY COOPER ALARCON ON/ADDEN DUM Humphrey Easton MD [address] [facility] [address], [place], [address] , [facility] 5 16:03:31 Esdras myrick 16300871 Completed 201101/11/2014 RECORDED 02/24/20 12 1:21PM BY COOPER ALARCON ON/ADDEN DUM Not Available [facility] 4 13:47:39 Injury of knee 156913787 Completed 201101/11/2014 RECORDED 02/24/20 12 1:21PM BY COOPER ALARCON ON/ADDEN DUM [facility] 4 13:47:39 Shoulder joint pain 170176911 Active 2013 IMPRESSI ON: HE WAS GIVEN A HANDOUT WITH EXERCISE S HE WILL DO AT HOME. HE WAS ALSO ADVISED ON HOW TO USE ICE AND HEAT DURING THE DAY. Not Available [facility] 3 14:22:13 Administ ration of bacteria l and viral vaccine Completed 200901/11/2014 RECORDED 12/19/19 10 3:51PM BY DANE FLORIAN MA, OFFICE VISIT Not Available [facility] 4 13:47:40 Joint pain in ankle and foot Completed 201101/11/2014 RECORDED 02/24/20 12 1:21PM BY COOPER ALARCON ON/ADDEN DUM [facility] 4 13:47:40 Adult health examinat ion Completed 201201/11/2014 RECORDED 08/26/19 13 4:30PM BY COOPER ALARCON ON/ADDEN DUM [facility] Available [facility] 4 13:47:40 Sprain of ankle 33238387 Active [address] WILLIAM [place] Not Available [facility] 3 14:22:13 Swelling of finger joint 160194168 Active Not Available [facility] 3 14:22:13 Seizure disorder 216505509 Active Not Available [facility] 3 14:22:13 Knee pain Active Not Available [facility] 3 14:22:13 Liver enzymes level above referenc e range 938702274 Active 2016 Not Available [facility] 3 14:22:13 Serum creatini ne above referenc e range 806677914 Active 2018 Seen by renal; benign; Humphrey Easton MD [address] [address], [place], [address] , [facility] 9 14:54:43 Right patellar tendon rupture 26268776785 959413 Active 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 Humphrey Easton MD [address] [address], [place], [address] , [facility] 4 11:32:18 Traumati c rupture of patellar tendon 528550858 Active 2023 Humphrey Easton MD [address] [address], [place], [address] , [facility] 4 09:04:57 Fracture of knee 746268680 Active 2023 Humphrey Easton MD [address] [address], [place], [address] , [facility] 4 09:04:58 Problem Notes None recorded. Procedures Surgical History Date Name Laterality Status Provider Name and Address Organization Details Recorded Time 4 Knee Surgery completed Kelly Ahuja MA [facility] 05/06/2024 15:07:59 3 Orthopedic Surgery completed Humphrey Easton MD [address] [address], [place], [address], [facility] 02/23/2014 15:07:30 9 Orthopedic Surgery completed Humphrey Easton MD [address] [address], [place], [address], [facility] 02/23/2014 15:07:30 Imaging Results Imaging Date Name Status LastModified by Organization Details LastModified Time 11/07/2021 electrocardiogram completed [email or web address] In-Off ice Order Internal Use Only DO Not Attach Compendium DO Not Attach Compendium, Do Not Delete/merge, [id number] 11/07/2021 11:52:03 11/06/2021 electrocardiogram completed [email or web address] In-Off ice Order Internal Use Only DO Not Attach Compendium DO Not Attach Compendium, Do Not Delete/merge, [id number] 11/06/2021 20:12:00 11/08/2021 US, echocardiogram completed [facility] [address], [place], [address], 11/08/2021 16:52:09 12/12/2021 US, echocardiogram completed Pending sale to [facility] [address], [place], [address], 12/22/2021 11:47:38 09/02/2022 exercise stress test completed [facility] [address], [place], [address], 09/11/2022 18:58:21 09/02/2022 imaging/diagnostic result completed [facility] [address], [place], [address], 09/11/2022 19:00:30 03/02/2024 electrocardiogram completed [email or web address] In-Off ice Order Internal Use Only DO Not Attach Compendium DO Not Attach Compendium, Do Not Delete/merge, [id number] 03/02/2024 12:13:17 03/02/2024 electrocardiogram completed [email or web address] In-Off ice Order Internal Use Only DO Not Attach Compendium DO Not Attach Compendium, Do Not Delete/merge, [id number] 03/02/2024 12:13:07 03/02/2024 audiogram completed [email or web address] In-Office Ord er Internal Use Only DO Not Attach Compendium DO Not Attach Compendium, Do Not Delete/merge, [id number] 03/02/2024 13:42:23 Procedure Notes None recorded. Medical Equipment None Reported. Allergies Allergen ID Allergen Name Allergen Category Reaction Reaction Severity Criticality Documentation Date Start Date Code Code System Note Provider Name and Address Organization Details Recorded Time 10212 No known allergy (situatio n) Not available Not available Not available Not available 06/18/2023 89047 6003 SNOMED Jacque Patten ganga [facility] 3 14:29:41 No known drug allergies Medications [...] Updated DateTime 2 180.34 cm 25.3 kg/m2 36838.6 2 g 74 /min 99 % 99 % 98.24 [degF] 116 mm[Hg] 75 mm[Hg] Nicky Bonds MA [facility] 2 14:20:29 Date Recorded Body height Provider [...] Updated DateTime 3 180.34 cm 24.8 kg/m2 70897.4 4 g 75 /min 97 % 97 % 97.9 [degF] 116 mm[Hg] 63 mm[Hg] Tessa Matias MA [facility] 3 12:43:19 Date Recorded Body height Body mass index (BMI) Body weight Heart rate Oxygen saturation Oxygen saturation in Arterial blood by Pulse oximetry Body temperature Systolic blood pressure Diastolic blood pressure Provider Name and Address Organization Details Last Updated DateTime 4 180.34 cm 24.3 kg/m2 38168.0 7 g 70 /min 99 % 99 % 98 [degF] 133 mm[Hg] 78 mm[Hg] Kelly Ahuja MA [facility] 4 11:12:48 Date Recorded Body height Provider Name an d Address Organization Details Last Updated DateTime 05/06/2024 180.34 cm Kelly Ahuja MA [facility] 05/06/2024 15:04:51 Social History Question Answer Notes LastModified by Organizat ion Details LastModified Time Tobacco Smoking Status Never Smoker Not Available [facility] 05/02/2020 03:36:37 Do You Have An Advance Directive? Yes [facility] Information not available 09/18/2020 What Is Your Level Of Alcohol Consumption? Occasional Family Events [id number] Information not available 05/02/2020 Is Blood Transfusion Acceptable In An Emergency? Yes [id number] Information not available 05/02/2020 What Is Your Level Of Caffeine Consumption? Moderate 1 Cup Tea Daily Information not available 11/21/2021 How Much Tobacco Do You Chew? None [id number] Information not available 05/02/2020 Are You Currently Employed? Yes [id number] Information not available 05/02/2020 What Type Of Diet Are You Following? REGULAR [id number] Information not available 05/02/2020 Which Illicit Or Recreational Drugs Have You Used? Marijuana Information not available 05/24/2020 Do You Or Have You Ever Used E-cigarettes Or Vape? Never Used Electronic Cigarettes Information not available 09/18/2020 What Is Your Occupation? [employer]ap [employer] Recently Fired From [employer] And Has A Law Suit Against Them For Unlawful Dismissal. [email or web address] Information not available 03/02/2024 Live Alone Or With Others? With Others With His Girfriend Since 2021; Has 2 Children From A Previous Relationship And They Stay With Him Regularly. [employer] Information not available 03/02/2024 Do You Take Precautions To Prevent Distracted Driving? Yes [facility] Information not available 02/28/2015 How Often Do You Need To Have Someone Help You When You Read Instructions, Pamphlets, Or Other Written Material From Your Doctor Or Pharmacy? Sometimes [facility] Information not available 02/28/2015 Have You Served In The ? No [employer] Information not available 05/07/2017 Have You Or [...] Born 2006 And Son Born In 2010 [id number] Information not available 05/02/2020 Do You Use Protection During Sex? No [id number] Information not available 05/02/2020 Seat Belts Used Routinely Yes [facility] Information not available 02/28/2015 Are You Sexually Active? Yes [id number] Information not available 05/02/2020 Smoke Alarm In Home Yes Information not available 02/28/2015 At What Age Did You Start Smoking Tobacco? 0 Information not available 05/30/2020 Are You Passively Exposed To Smoke? No Information not available 02/28/2015 Do You Or Have You Ever Used Smokeless Tobacco? Never Used Smokeless Tobacco [id number] Information not available 05/02/2020 Do You Use Any Illicit Or Recreational Drugs? No Information not available 11/21/2021 Do You Use Sunscreen Routinely? Yes [id number] Information not available 05/02/2020 How Many Years [...] you able to care for yourself? Yes [id number] Information not available 05/02/2020 What is your exercise level? Heavy [id number] Information not available 05/02/2020 Mental Status None [...] or 50 mcg/0.25mL dose [facility] 14:29:57 COVID-19, mRNA, LNP-S, PF, 100 mcg/0.5mL dose or 50 mcg/0.25mL dose 1 completed Jacque schuler [facility] 06/18/2023 14:29:57 Tdap 9 completed Not Available [facility] 07/17/2019 02:21:51 Influenza, split virus, quadrivalent , PF 0 cancelled patient objection BRENDA Morocho [facility] 05/24/2020 15:43:04 Past Encounters Encounter ID Performer Location Encounter Start Date Encounter Closed Date Diagnosis/Indication Diagnosis SNOMED-CT Code Diagnosis ICD10 Code Diagnosis Note [id number] auto[facility]Comm erce [address] [facility] [place] [address] 02/19/2006 00:00:00 [id number] autoEComm erce [address] [facility] [place] [address] 09/09/2005 00:00:00 [id number] auto[facility]Comm erce [address] [facility] [place] [address] 04/10/2005 00:00:00 [id number] autoEComm erce [address] [facility] [place] [address] 07/21/2007 00:00:00 [id number] autoEComm erce [address] [facility] [place] [address] 01/19/2009 00:00:00 [id number] auto[facility]Comm erce [address] [facility] [place] [address] 12/18/2009 00:00:00 [id number] auto[facility]Comm erce [address] [facility] [place] [address] 12/19/2010 00:00:00 [id number] auto[facility]Comm erce [address] [facility] [place] [address] 03/23/2012 00:00:00 [id number] auto[facility]Comm erce [address] [facility] [place], [place] [address] 08/26/2012 00:00:00 [id number] autoEComm nadiae [address] [facility] [place], [place] [address] 09/08/2012 00:00:00 [id number] Elpidio Onofrekaleb Main Office [address] [place] [address] [place] [address] 02/23/2014 14:08:45 02/23/2014 15:28:38 Adult health examination 754327745 Swelling o f finger joint 515107645 Seizure disorder 313282143 he was followed by neuro but has been seizure-fr ee since age 18. He will follow here for his meds and blood work. He does not want to stop meds because the last time he stopped at age 18 he had another seizure. [id number] Elpidio Felton Main Office [address] [place] [address] [place] [address] 02/28/2015 15:38:57 02/28/2015 16:23:55 Adult health examination 873910657 Knee pain 10025373 [id number] Humphrey Easton MD Main Office [address] [address] [place] [address] 05/07/2017 15:45:40 05/07/2017 16:57:31 Adult health examination 734043143 Z00.00 UTD with immunizati ons. Cancer screening not currently indicated. Seizure disorder 7258914 G40.909 he was followed by neuro but has been seizure-fr ee since age 18. He will follow here for his meds and blood work. He does not want to stop meds because the last time he stopped at age 18 he had another seizure. [id number] Humphrey Easton MD Main Office [address] [address] [place] [address] 05/15/2018 15:44:06 05/15/2018 16:34:21 Adult health examination 301042484 Z00.00 UTD with immunizati ons. Cancer screening not currently indicated. Seizure disorder 4642107 G40.909 he was followed by neuro but has been seizure-fr ee since age 18. He will follow here for his meds and blood work. He does not want to stop meds because the last time he stopped at age 18 he had another seizure. [id number] Humphrey Easton MD Main Office [address] [place] [address] 05/19/2019 15:44:50 05/19/2019 16:48:04 Adult health examination 926744540 Z00.00 UTD with immunizati ons. Cancer screening not currently indicated. Administra tion of viral vaccine 99333316 Z23 Seizure disorder 6966830 02 G40.909 he was followed by neuro [...] expensive. Exposure t o sexually transmissible disorder 238334489 Z20.2 [id number] Humphrey Easton MD Main Office [address] [address] 05/24/2020 15:25:03 05/24/2020 16:16:55 Adult health examination 078547575 Z00.00 UTD with immunizati ons. Cancer screening not currently indicated. Influenza vaccination declined 717686604 Z28.21 Seizure disorder 7136289 02 G40.909 he was followed by neuro [...] brand name may be too expensive. Insomnia 832844303 G47.0 0 Occasional ly uses OTC melatonin which helps. [id number] Humph[facility] MD [facility] [address] [address] 09/18/2020 14:08:27 09/19/2020 09:31:08 Seizure disorder 178636227 G40.909 he was followed by neuro but has been seizure-fr ee since age 18. He will follow here for his meds and blood work. He does not want to stop meds because the last time he stopped at age he had another seizure. He would like to start the generic because his insurance will no longer cover the brand name. [id number] Humphrey Easton MD Main Office [address] [facility] [address] [place] [address] 11/06/2021 15:36:49 11/07/2021 09:06:34 Syncope 196566873 R55 Possibly vasovagal. Will get an ECHO to look for a cardiac etiology. Will also get labs; look for tegretol level since on a new preparatio n. [id number] Humphrey Easton MD Main Office [address] [facility] [address] [place] [address] 11/21/2021 13:50:31 11/21/2021 14:46:19 Adult health examination 454831084 Z00.00 UTD with immunizati ons including COVID. I recommende d that he get the booster. Cancer screening not currently indicated. Seizure disorder 3401730 02 G40.909 he was followed by neuro but has been seizure-fr ee since age 18. He does not want to stop meds because the last time he stopped he had another seizure. Serum crea tinine above reference range [id number] R79.89 Has been elevated for 10 years and was evaluated by renal a few years ago. No etiology found. W/u was negative. [id number] Humphrey Easton MD [facility] [address] [facility] [address] [place] [address] 06/13/2022 14:30:07 06/14/2022 09:08:06 Anterior chest wall pain [id number] R07.89 No clear etiology but does not appear to be cardiac. Syncope [id number] R55 Possibly vasovagal. ECHO and EKG were both normal. [id number] Humphrey Easton MD Main Office [address] [facility] [address] [place] [address] 11/26/2022 12:36:15 11/26/2022 13:33:43 Adult health examination [id number] Z00.00 UTD with immunizati ons including COVID. I recommende d that he get the booster. Cancer screening not currently indicated. Liver enzy mes level above reference range [id number] R74.01 Seizure disorder [id number] 02 G40.909 he was followed by neuro but has been seizure-fr ee since age 18. He does not want to stop meds because the last time he stopped he had another seizure. [id number] Humphrey Easton MD Main Office [address] [facility] [address] [place] [address] 03/02/2024 10:37:14 03/02/2024 12:31:00 Adult health examination [id number] Z00.00 Had initial COVID vaccine series but no boosters and no plans for additional vaccines.U TD with tetanus done in 2019.No need yet for cancer screening. Will start checking PSA and colon cancer screening at age 47. Seizure disorder [id number] 02 G40.909 he was followed by neuro but has been seizure-fr ee since age 18. He does not want to stop meds because the last time he stopped he had another seizure. [id number] Humphrey Easton MD [facility] [address] [facility] [address] [place] [address] 05/06/2024 14:50:50 05/06/2024 16:39:07 Fracture of knee [id number] S82.90XA Traumatic rupture of patellar tendon [id number] S76.111A Followed by ortho s/p surgery. He is on pain meds and will start PT later this month. His recovery is expected to be 3-6 months. He needs assistance to accomplish most of his ADL's specifical ly bathing, dressing, toileting and transferri ng. We will look into getting him a SIZER MACHINE for at least 3 months and then re evaluate. Health Concerns Section Related Observation LastModified by Organization Detai ls LastModified Time None Recorded Concern Status LastModified by Organization Details LastModified Time None Recorded Advance Directives Directive Y: HCP Payers Encounter Date Sequence Insurance Name Policy Number Policy Friedman Covered Member ID Friedman Member ID Guarantor Name 11/21/2021 1 [facility] [id number] Jakub Bowen [id number] Jakub Bowen 06/13/2022 1 [facility] [id number] Jakub Bowen [id number] Jakub Bowen 11/26/2022 1 [facility] [id number] Jakub Bowen [id number] Jakub Bowen 03/02/2024 1 [facility] (MEDICAID HMO) [id number] Jakub Bowen [id number] Jakub Bowen 03/02/2024 2 [place] [facility] Jakub Bowen [id number] Jakub Bowen 05/06/2024 1 [facility] (MEDICAID HMO) [id number] Jakub Bowen [id number] Jakub Bowen 05/06/2024 2 [place] [facility] Jakub Bowen [id number] Jakub Bowen Notes Date Note Type Note Provider Name and Address Organization Details Recorded Time 11/21/2021 text/html Generic HPI TemplateReported bypatient.Notes:No more syncopal episodes since he was her last. His w/u has been negative including EKG and labs. He is scheduled for a ECHO next month. Humphrey Easton MD [address], [address], [facility] 11/21/2021 17:21:47 06/13/2022 text/html He has been [...] this happening again. Humphrey Easton MD [address] [address], [place], [address], [facility] 06/19/2022 17:51:24 11/26/2022 text/html Generic HPI TemplateReported bypatient.Notes:He has been doing well. No current complaints.Vaccinated against COVID and has never been infected.Works 2 jobs. Humphrey Easton MD [address] [address], [place], [address], [facility] 11/26/2022 14:54:23 03/02/2024 text/html Generic HPI TemplateReported bypatient.Notes:He has been doing well health-[facility] since his last appointment.Exercises regularly at the gym and has started boxing which he finds therapeutic.He was fired from his job at [employer] earlier this year and is pursuing a wrongful termination case.Lives with his girlfriend and has shared custody with his 2 children. 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 He suffered an avulsion fracture as well as a torn patellar tendon. He was seen in the ER and given a knee brace and he scheduled an appointment with [facility] for 04/23/24. His pain was increasing and he was having difficulty ambulating so he called [facility] and got a sooner appointment on [...] is looking for assistance. Humphrey Easton MD [address], [address], [facility] 05/08/2024 09:09:46
--- OUTSIDE RECORDS SUMMARY | 2024-08-12 14:14 | XMS_ITS | Clinical Summary ---
Author Organization [facility] Address [address] [place] [address] Phone Care Team Providers Care Vehicle Assembler Name Role Phone Humphrey Easton MD Primary Care Provider Allergies No known active allergies Medications TEGretol 200 MG tablet 01/09/2020 Active Active Problems Problem Noted Date Diagnosed Date Serum creatinine above reference range 9 Encounters Date Type Department Care Team Description 07/22/2024 Telephone [facility] [place], [address] [place] [phone] Heydi Deleon MA from Last 3 Months Immunizations Name Administration Dates Next Due Tdap 05/19/2019,12/18/2009 Social History Tobacco Use Types Packs/Day Years Used Date Smoking Tobacco: Never Alcohol Use Standard Drinks/Week Comments Yes 0 (1 standard drink = 0.6 oz pure alcohol) Alcoholic Drinks/day: Occasional social drink Sex and Gender Information Value Date Recorded Sex Assigned at Not on file Legal Sex Male 4:31 PM EST Gender Identity Not on file Sexual Orientation Not on file Last Filed Vital Signs Vital Sign Reading Time Taken Comments Blood Pressure 110/66 04/07/2023 1:57 PM EDT Pulse - - Temperature - - Respiratory Rate - - Oxygen Saturation - - Inhaled Oxygen Concentration - - Weight 82.1 kg (181 lb) 03/04/2019 12:00 PM EDT Height 180.3 cm (5' 11 ) 03/04/2019 12:00 PM EDT Body Mass Index 25.24 03/04/2019 12:00 PM EDT Plan of Treatment Upcoming Encounters Date Type Department Care Team (Late st Contact Info) Description 03/14/2025 2:00 PM EDT Office Visit [facility], [address] [place] [address] Tom Asencio MD [address] [facility] [place] [phone] Health Maintenance Due Date Last Done Comments Pneumococcal Vaccine: Pediat rics (0 to 5 Years) and At-Risk Patients (6 to 64 Years) (1 of 2 - PCV) 1988 Hepatitis B Vaccine (1 of 3 - 19+ 3-dose series) 04/03 Influenza Vaccine (#1) 2024 Insurance [place] [address] Care Teams Vehicle Assembler Relationship Specialty Start Date End Date Humphrey Easton MD [address] PCP - General 05/04/19
--- OUTSIDE RECORDS SUMMARY | 2024-08-12 14:14 | XMS_ITS | Data Portability ---
Author Organization [facility], [address] Address [address] [place] [address] Assessment No assessment recorded. Plan of Treatment Reminders Order Date Submit Date Provider Last Modified By Organization Details Last Modified Time Details Appointments None record ed. Lab None record ed. Referral None record ed. Procedures None record ed. Surgeries None record ed. Imaging None record ed. Medication Orders None record ed. Patient TargetsNo targets recorded. Patient InstructionsNo instructions recorded. Reason for Referral None Reported. Medical Equipment None Reported. Vitals None Recorded Social History None recorded. Functional Status None recorded. Mental Status None recorded. Family History Nothing Reported. Medical History No medical history recorded. Past Encounters Encounter ID Performer Location Encounter Start Date Encounter Closed Date Diagnosis/Indication Diagnosis SNOMED-CT Code Diagnosis ICD10 Code Diagnosis Note [id number] [address] [address] 09/25/2020 10:48:39 09/25/2020 11:32:48 Health Concerns Section Related Observation LastModified by Organization Detai ls LastModified Time None Recorded Concern Status LastModified by Organization Details LastModified Time None Recorded Advance Directives Directive None Recorded Payers Encounter Date Sequence Insurance Name Policy Number Policy Friedman Covered Member ID Friedman Member ID Guarantor Name 09/25/2020 1 [facility] [id number] Jakub Bowen [id number] Jakub Bowen
[2024-08-12 14:19] VITALS: BMI 22.7
--- NOTE | 2024-08-12 14:19 | MHC.OFFVIS ---
Vital Signs 08/12/24 14:19 Height 5 ft 11 in Weight 163 lb BMI 22.7 Intake Visit Reasons: OV-RT patella tendon repair 04/20/24 NE Intake Note: Jakub is a 44 year old male who presents today for a post operative appointment s/p Right Patella tendon repair 04/20/24. Patient reports that he is doing well. He has pain after PT that he takes Ibuprofen for pain which is helpful. He is still having some limited ROM and difficulty with quad function. Allergies No Known Allergies Allergy (Verified 07/05/24 11:28) HPI HPI OV-RT patella tendon repair 04/20/24 NE: Details: This is a 44 yo M who underwent a right patellar tendon repair in late March. He has been improving steadily and recently, while at PT, felt a pop with [pain. He subsequently felt like something released and was left with more motion. PFS Surgical History Hx of Achilles tendon repair Hx of foot surgery Social History (Updated 06/04/24 @ 09:32 by MAX Cardozo) Patient Tobacco Use Status: Never used Tobacco Second Hand Smoke Exposure: No Substance Use Type: Marijuana Current occupational status: unemployed Physical Exam Vital Signs: BMI result Body Mass Index 22.7 Extrem Other: 15 deg ext lag. 0-125 deg passive ROM mild effusion quad intact Assessment & Plan Assessment & Plan (1) Rupture of right patellar tendon: Code(s): S86.811A - Strain of other muscle(s) and tendon(s) at lower leg level, right leg, initial encounter Category: Medical Qualifiers: Encounter type: subsequent encounter Qualified Code(s): S86.811D - Strain of other muscle(s) and tendon(s) at lower leg level, right leg, subsequent encounter Plan: Continue strengthening and swelling control. F/u 2 months. Coding Level of Care Code Est Pt Level 3 (58541) Diagnoses Rupture of right patellar tendon, subsequent encounter S86.811D Encounter type: subsequent encounter
== END 2024-08-12 15:08 | disposition home or self-care (01) ==
PROVIDERS: Visit Provider Orthopaedic Surgery
DX: S86.811D Strain of other muscle(s) and tendon(s) at lower leg level, right leg, subsequent encounter (principal)
CPT/HCPCS: 99213

== ENCOUNTER → 2024-08-12 14:09 | Outpatient (BNVA) | payer OTHER, SELFPAY | PROVIDERS: Visit Provider Orthopaedic Surgery | DX: S86.811D Strain of other muscle(s) and tendon(s) at lower leg level, right leg, subsequent encounter (principal) | CPT/HCPCS: 99212 ==

== ENCOUNTER 2024-10-05 10:00 | Outpatient (RCR) | payer OTHER, SELFPAY ==
--- NOTE | 2024-05-20 15:56 | MHC.PT.EP ---
[facility] [place] Office [place] Office [place] Office [address] [place] [address] [phone] F: [phone] F: [phone] F: [phone] F: [phone] Physical Therapy Plan of Care Date of Evaluation: 05/20/24 Date of Surgery: 04/20/24 Diagnosis: S/P Right Patellar Tendon repair (Syed and Nephew double loaded Helacoil and large Regeneted Collagen bioinductive implant)-> WBAT W BRACE LOCKED IN EXT AND W CRUTCHES, INCREASE ROM 10* EACH WEEK Assessment: 44 YO MALE REF TO PT WITH A H/O Rt RUPTURED PATELLAR TENDON AND S/P Right Patellar Tendon repair 04/20/24-> HE IS REF TO PT , WBAT Rt W BRACE LOCKED IN EXTEN AND CRUTCHES, INCREASE 10* EVERY WEEK. HE PRESENTED NWB Rt LE W CRUTCHES- HE IS CURRENTLY LAID OFF FROM WORK SINCE JUL 2023. THE Pt HAS DECR ROM Rt LE, SIGNIF ATROPHY IN Rt QUAD, DECR PATELLAR MOB/ SCAR MOB, AND FLUCTUATING PAIN, ZINGS . FUNCTIONALLY, THE Pt HAS BEEN NWB Rt LE FOR APPREHENSION W WT BEARING, HE IS LIMITED W ALL ADLs, GAIT-> HE NOTES HE HAS BEEN LAYING IN BED ALL THE TIME. Pt IS A GOOD PT CANDIDTAE TO ADDRESS THE ABOVE FINDINGS AND GUIDE HIM IN HIS POST-OP COURSE FOR MAXIMAL FUNCTIONAL INDEPENDENCE. Frequency and Duration: The patient will be seen 2 x WK x 12 WKS Short Term Goals: *DECR Rt KNEE PAIN IMPROVE SCAR MOB *CONT EDUC Pt RE POST-OP PROTOCOL *IMPROVE ROM Rt KNEE 10* PER WEEK *Pt DEMON MORE EFFICIENT Rt QUAD MM ACTIV *Pt INITIATE AND ADVANCE WBAT Rt LE GAIT AND FUNCT MOB (W Rt KNEE BRACE AND CRUTCHES) Foil Wrapper Goals: *Pt INDEP W HEP AND SELF SX MGMT TECHN *Pt RESTORE FULL A/PROM AND STRENGTH IN Rt KNEE/ LE TO ALLOW FOR RETURN TO REG ADLs, HOBBIES, WORK FORCE *Rt LE SLS x 15 SEC *IMPROVED LEFI ( AT EVAL ) *Pt DISPLAY EFFICIENT GAIT MECH ON LEVEL GROUND, STAIRS Treatment Plan: Modalities to reduce pain, spasms and effusion. Manual therapy to restore motion and function. Therapeutic exercise to improve strength and flexibility. Neuromuscular re-education for posture and balance. Therapeutic activities to return to functional activities of daily living. Electronically signed by: OBED DE LEONPT Please sign and return to therapist. Thank you for your referral.
--- NOTE | 2024-10-08 10:39 | MHC.PT.DC ---
[facility] [place] Office [employer] Office [place] Office [address] [place] [address] [phone] F: [phone] F: [phone] F: [phone] F: [phone] Physical Therapy Discharge Report Diagnosis: S/P Right Patellar Tendon repair (Syed and Nephew double loaded Helacoil and large Regeneted Collagen bioinductive implant)-> WBAT W BRACE LOCKED IN EXT AND W CRUTCHES, INCREASE ROM 10* EACH WEEK Date of Surgery: 04/20/24 Date of Evaluation: 05/20/24 Date of Discharge: 10/08/24 Treatments to Date: 29 Cancellations to Date: 9 No Shows to Date: Discharge Status: Achieved Goals Improved Function Independent with HEP Discharge Summary: ANITA HAS MET HIS PT GOALS AT THIS TIME AND IS DISCHARGED THIS DATE FROM PT- HE HAS A THOROUGH,PROGRESSIVE HEP TO FURTHER ADDRESS STRENGTH AND HE CONTINUES 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 HIS LEFI SCORE AT EVAL WAS 3/80 AND AT DISCHARGE, 70/80. HIS Rt KNEE AROM: FLEX =155* AFTER WARMUPS, FULL EXTENSION; HE CAN SINGLE LEG STANCE Rt x 20 SEC; YESSICAON WFL SQUAT... HE IS PLEASED WITH HIS CURRENT STAUS OVERALL AND IS READY TO CONT ON HIS OWN AT THIS TIME. Electronically signed by: OBED DE LEON,PT Please sign and return to therapist. Thank you for your referral.
== END 2024-10-08 10:39 | disposition home or self-care (01) ==
LOC: HO.PT 10:00
PROVIDERS: Visit Provider Physician Assistant
DX: S86.811D Strain of other muscle(s) and tendon(s) at lower leg level, right leg, subsequent encounter (principal)
CPT/HCPCS: 97110; 97112; 97140; 97163; 97530; 97535

== ENCOUNTER 2024-10-11 11:54 | Outpatient (AMB) | payer OTHER, SELFPAY ==
--- NOTE | 2024-10-11 12:05 | A.OFFVIS_ITS ---
Intake Visit Reasons: OV - Right Patella Tendon Repair - 04/20/24 Intake Note: Jakub is a 44 year old male who presents today for a follow up of his right knee about 6 months s/p Right Patella tendon repair 04/20/24. Patient reports that he is doing well as he is not having pain but he continues to have stiffness at the top of the knee cap. He works with PT which is helpful but after PT his stiffness returns. Allergies No Known Allergies Allergy (Verified 07/05/24 11:28) HPI HPI OV - Right Patella Tendon Repair - 04/20/24: Details: Is 6 months status post right patellar tendon repair for rupture treated subacutely. He continues to improve. He is going to the boxing gym and doing some light jogging and working on rehabilitation exercises. [facility] Surgical History Hx of Achilles tendon repair Hx of foot surgery Social History (Updated 06/04/24 @ 09:32 by MAX Cardozo) Patient Tobacco Use Status: Never used Tobacco Second Hand Smoke Exposure: No Substance Use Type: Marijuana Current occupational status: unemployed Physical Exam Extrem Other: 3-110 degrees of motion. No effusion. Atrophied right quadriceps. Assessment & Plan Assessment & Plan (1) Rupture of right patellar tendon: Code(s): S86.811A - Strain of other muscle(s) and tendon(s) at lower leg level, right leg, initial encounter Category: Medical Qualifiers: Encounter type: subsequent encounter Qualified Code(s): S86.811D - Strain of other muscle(s) and tendon(s) at lower leg level, right leg, subsequent encounter Plan: Right patellar tendon rupture. I think he needs to strengthen his quad before he returns to full duty. I have reviewed exercises with him. He will follow up to see me in 2-3 months Coding Level of Care Code Est Pt Level 3 (48342) Diagnoses Rupture of right patellar tendon, subsequent encounter S86.811D Encounter type: subsequent encounter
--- OUTSIDE RECORDS SUMMARY | 2024-10-11 14:00 | XMS_ITS | Data Portability ---
Author Organization [facility], [address] Address [address] [place] [address] Assessment No assessment recorded. Plan of Treatment [...] SNOMED-CT Code Diagnosis ICD10 Code Diagnosis Note [id number] [address] [address] 09/25/2020 10:48:39 09/25/2020 11:32:48 Health Concerns Section Related Observation LastModified by Organization Detai ls LastModified Time None Recorded Concern Status LastModified by Organization Details LastModified Time None Recorded Advance Directives Directive None Recorded Payers Encounter Date Sequence Insurance Name Policy Number Policy Friedman Covered Member ID Friedman Member ID Guarantor Name 09/25/2020 1 [facility] [id number] Jakub Bowen [id number] Jakub Bowen
--- OUTSIDE RECORDS SUMMARY | 2024-10-11 14:00 | XMS_ITS | Clinical Summary ---
Author Organization [facility] Address [address] [place] [address] Phone Care Team Providers Care Reconciling Clerk Name Role Phone Humphrey Easton MD Primary Care Provider Allergies No known active allergies Medications TEGretol 200 MG tablet 01/09/2020 Active Active Problems Problem Noted Date Diagnosed Date Serum creatinine above reference range 9 Encounters Date Type Department Care Team Description 07/22/2024 Telephone [facility] [place], [address] [place] [phone] Heydi Deleon MA from Last 3 Months Immunizations Immunization Administration Dates Next Due Tdap 05/19/2019,12/18/2009 Social [...] Visit [facility] [place], [address] [place] [phone] Tom Asencio MD [address] [facility] [address] [place] [phone] Health Maintenance Due Date Last Done Comments Hepatitis B Vaccine (1 of 3 - 19+ 3-dose series) 04/03 Pneumococcal Vaccine: Peds ( 0 to 5 Years) and At-Risk Patients (6 to 49 Years) (1 of 2 - PCV) 2001 Influenza Vaccine (Season Ended) 2025 Insurance [facility] Care Teams Reconciling Clerk Relationship Specialty Start Date End Date Humphrey Easton MD [address] PCP - General 05/04/19
== END 2024-10-11 12:21 | disposition home or self-care (01) ==
LOC: HO.HOS 11:54
PROVIDERS: Visit Provider Orthopaedic Surgery
DX: S86.811D Strain of other muscle(s) and tendon(s) at lower leg level, right leg, subsequent encounter (principal)
CPT/HCPCS: 99213

== ENCOUNTER → 2024-10-11 11:54 | Outpatient (BNVA) | payer OTHER, SELFPAY | PROVIDERS: Visit Provider Orthopaedic Surgery | DX: S86.811D Strain of other muscle(s) and tendon(s) at lower leg level, right leg, subsequent encounter (principal) | CPT/HCPCS: 99212 ==

== ENCOUNTER 2024-12-06 11:05 | Outpatient (AMB) | payer OTHER, SELFPAY ==
[2024-12-06 11:11] VITALS: BMI 22.7
--- NOTE | 2024-12-06 11:11 | A.OFFVIS_ITS ---
Vital Signs 12/06/24 11:11 Height 5 ft 11 in Weight 163 lb BMI 22.7 Intake Visit Reasons: OV-RT Patella Tendon Repair-04/20/24-Follow up Intake Note: Jakub is a 44 year old male who presents today for a follow up of his right knee about 8 months s/p Right Patella tendon repair 04/20/24. At his last visit we discussed the need for quad strengthening prior to returning to work, he was given a note to remain out of work until his follow up today. 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 Patient states that mild running and at home exercise's are still causing his right knee some discomfort. Allergies No Known Allergies Allergy (Verified 12/06/24 11:16) HPI HPI OV-RT Patella Tendon Repair-04/20/24-Follow up: Details: Jakub is a 44 year old male who presents today for a follow up of his right knee about 8 months s/p Right Patella tendon repair 04/20/24. At his last visit we discussed the need for quad strengthening prior to returning to work, he was given a note to remain out of work until his follow up today. 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 Patient states that mild running and at home exercise's are still causing his right knee some discomfort. [facility] Surgical History Hx of Achilles tendon repair Hx of foot surgery Social History (Updated 06/04/24 @ 09:32 by MAX Cardozo) Patient Tobacco Use Status: Never used Tobacco Second Hand Smoke Exposure: No Substance Use Type: Marijuana Current occupational status: unemployed Physical Exam Vital Signs: BMI result Body Mass Index 22.7 Extrem Other: 0-130 degrees right knee with well-healed incision. Good 5/5 strength with resisted knee extension. His quad is better defined than in prior but still atrophied compared to the left. Assessment & Plan Assessment & Plan (1) Rupture of right patellar tendon: Code(s): S86.811A - Strain of other muscle(s) and tendon(s) at lower leg level, right leg, initial encounter Category: Medical Qualifiers: Encounter type: subsequent encounter Qualified Code(s): S86.811D - Strain of other muscle(s) and tendon(s) at lower leg level, right leg, subsequent encounter Plan: Rupture of right patellar tendon. This is repaired now about 8-9 months ago. He has been progressing very well but still feels not 100%. I recommend continued strengthening and activity as tolerated. He can return to work as needed. Follow up PRN Coding Level of Care Code Est Pt Level 3 (78712) Diagnoses Rupture of right patellar tendon, subsequent encounter S86.210H Encounter type: subsequent encounter
--- OUTSIDE RECORDS SUMMARY | 2024-12-06 12:43 | XMS_ITS | Data Portability ---
Author Organization [facility], [address] Address [address] [place] [address] Assessment No assessment recorded. Plan of Treatment [...] SNOMED-CT Code Diagnosis ICD10 Code Diagnosis Note [id number] [facility] [address] [address] 09/25/2020 10:48:39 09/25/2020 11:32:48 Health Concerns Section Related Observation LastModified by Organization Detai ls LastModified Time None Recorded Concern Status LastModified by Organization Details LastModified Time None Recorded Advance Directives Directive None Recorded Payers Insurance Date Sequence Insurance Name Policy Number Policy Friedman Covered Member ID Friedman Member ID Guarantor Name 12/08/2023 1 [facility] [id number] Jakub Bowen [id number] Jakub Bowen
== END 2024-12-06 11:43 | disposition home or self-care (01) ==
LOC: HO.HOS 11:06
PROVIDERS: Visit Provider Orthopaedic Surgery
DX: S86.811D Strain of other muscle(s) and tendon(s) at lower leg level, right leg, subsequent encounter (principal)
CPT/HCPCS: 99213

== ENCOUNTER → 2024-12-06 11:05 | Outpatient (BNVA) | payer OTHER, SELFPAY | PROVIDERS: Visit Provider Orthopaedic Surgery | DX: S86.811D Strain of other muscle(s) and tendon(s) at lower leg level, right leg, subsequent encounter (principal) | CPT/HCPCS: 99212 ==